=== PATIENT | female | born 1960 | race Caucasian/White ===

== ENCOUNTER 2019-10-01 06:51 | Observation (INO) | payer BC ==
[2019-10-01] MEDS ORDERED: ASPIRIN 81 MG CHEWABLE TABLETS ONE ×2 (07:35→07:37)
[2019-10-01] MEDS ORDERED: ASPIRIN 81 MG CHEWABLE TABLETS PO ONE (07:36)
[2019-10-01 07:39] VITALS: BMI 22.6
[2019-10-01] MEDS ORDERED: methylPREDNISolone NA SUCC 125 MG/2 ML VIAL IVPB ONE (07:48)
[2019-10-01] MEDS ORDERED: ONDANSETRON 4 MG/2 ML VIAL IVPUSH ONE (08:00)
[2019-10-01] MEDS ORDERED: methylPREDNISolone NA SUCC 125 MG/2 ML VIAL ONE (08:02)
[2019-10-01] MEDS ORDERED: ALBUTEROL SO4 2.5/IPRATROPIUM 0.5 INH SOL 3 ML VIAL.NEB. NEB ONE (08:02)
--- NOTE | 2019-10-01 08:05 | PDOC ---
History of Present Illness - General Chief Complaint: Chest Pain Stated Complaint: CHEST PAIN Time Seen by Provider: 10/01/19 07:34 History Source: Patient Exam Limitations: No Limitations - History of Present Illness Initial Comments: 10/01/19 07:54 58yo female with a PMH of HIV (reported VL undetectable), asthma, and recently diagnosed HTN/HLD presenting with left sided chest pain for 6 hours. Patient states she woke up at 2am with intermittent, stabbing left sided chest pain radiating to left upper back, worse with deep inspiration, not associated with exertion or relieved by rest. She states she got worked up about the pain and began wheezing and feeling chest tightness, took albuterol, which helped, but did not help with the chest pain. No n/v, abdominal pain, recent immobilization, leg pain/swelling. PMH: as above PSH: appendectomy Home Medication List Medication Instructions Recorded Confirmed Type Buspirone HCl [Buspar -] 5 mg PO BID 09/16/14 10/01/19 History Darunavir Ethanolate [Prezista] 800 mg PO DAILY 09/16/14 10/01/19 History Montelukast Na [Singulair -] 10 mg PO HS 09/16/14 10/01/19 History Potassium 1 each PO DAILY 09/16/14 10/01/19 History Raltegravir [Isentress] 400 mg PO BID 09/16/14 10/01/19 History Ritonavir [Norvir] 100 mg PO DAILY 09/16/14 10/01/19 History Lamivudine 300 mg PO DAILY 07/17/15 10/01/19 History Atorvastatin Ca [Lipitor] 20 mg PO HS 10/01/19 10/01/19 History Biotin 1,000 mcg PO DAILY 10/01/19 10/01/19 History Methocarbamol [Robaxin -] 500 mg PO QID 10/01/19 10/01/19 History Metoprolol Succinate [Toprol Xl -] 25 mg PO DAILY 10/01/19 10/01/19 History Allergies: none denies alc/tob/drugs PCP: Bruno SAUCEDO GENERAL/CONSTITUTIONAL: No fever or chills. No weakness. HEAD, EYES, EARS, NOSE AND THROAT: No change in vision. No ear pain or discharge. No sore throat. CARDIOVASCULAR: + chest pain and shortness of breath RESPIRATORY: No cough, wheezing, or hemoptysis. GASTROINTESTINAL: No nausea, vomiting, diarrhea or constipation. GENITOURINARY: No dysuria, frequency, or change in urination. MUSCULOSKELETAL: No joint or muscle swelling or pain. No neck or back pain. SKIN: No rash NEUROLOGIC: No headache, vertigo, loss of consciousness, or change in strength/sensation. ENDOCRINE: No increased thirst. No abnormal weight change HEMATOLOGIC/LYMPHATIC: No anemia, easy bleeding, or history of blood clots. ALLERGIC/IMMUNOLOGIC: No hives or skin allergy. PE GENERAL: Awake, alert, and fully oriented, in no acute distress HEAD: No signs of trauma, normocephalic, atraumatic EYES: PERRLA, EOMI, sclera anicteric, conjunctiva clear ENT: Auricles normal inspection, hearing grossly normal, nares patent, oropharynx clear without exudates. Moist mucosa NECK: Normal ROM, supple, no lymphadenopathy, JVD, or masses LUNGS: No distress, speaks full sentences, expiratory wheezing in all lung keenan Chest: tender to palpation on left, but not same pain as she feels with deep breaths Back: paraspinal cervical tenderness b/l HEART: Regular rate and rhythm, normal S1 and S2, no murmurs, rubs or gallops, peripheral pulses normal and equal bilaterally. ABDOMEN: Soft, nontender, normoactive bowel sounds. No guarding, no rebound. No masses EXTREMITIES : Normal inspection, Normal range of motion, no edema. No clubbing or cyanosis. NEUROLOGICAL: Cranial nerves II through XII grossly intact. Normal speech, n ormal gait, no focal sensorimotor deficits SKIN: Warm, Dry, normal turgor, no rashes or lesions noted Vital Signs Temp Pulse Resp BP Pulse Ox 97.5 F L 78 15 147/93 100 10/01/19 07:10 10/01/19 08:42 10/01/19 08:42 10/01/19 08:42 10/01/19 08:42 10/01/19 08:49 58yo female 58yo female with a PMH of HIV (reported VL undetectable), asthma, and recently diagnosed HTN/HLD presenting with left sided pleuritic chest pain for 6 hours. EKG NSR without ischemic changes, short ND, prolonged QT. Differential includes ACS, PE, pneumonia, as well as musculoskeletal pathology. Cannot PERC out because of age, so will pursue low risk PE r/o with D-dimer. Risk factors for ACS are HTN, HLD, and age. PE notable for wheezing, so will treat. Anticipate tele-obs admission for r/o ACS. -CXR -labs -duo nebs, steroids 10/01/19 10:05 CXR: no acute process labs: notable for negative D-dimer and negative troponin x1 Heart Score [address] Marya Arias for tele-obs admission r/o ACS Patient agrees to plan Signed out to admitting physician who accepted the patient 10/01/19 15:12 Past History - Medical History Allergies/Adverse Reactions: Allergies Allergy/AdvReac Type Severity Reaction Status Date / Time No Known Allergies Allergy Verified 09/16/14 18:42 Home Medications: Ambulatory Orders Buspirone HCl [Buspar -] 5 mg PO BID 09/16/14 Darunavir Ethanolate [Prezista] 800 mg PO DAILY 09/16/14 Montelukast Na [Singulair -] 10 mg PO HS 09/16/14 Potassium 1 each PO DAILY 09/16/14 Raltegravir [Isentress] 400 mg PO BID 09/16/14 Ritonavir [Norvir] 100 mg PO DAILY 09/16/14 Lamivudine 300 mg PO DAILY 07/17/15 Atorvastatin Ca [Lipitor] 20 mg PO HS 10/01/19 Biotin 1,000 mcg PO DAILY 10/01/19 Methocarbamol [Robaxin -] 500 mg PO QID 10/01/19 Metoprolol Succinate [Toprol Xl -] 25 mg PO DAILY 10/01/19 Anemia: No Asthma: Yes Cancer: No Cardiac Disorders: No CVA: No COPD: No CHF: No Dementia: No Diabetes: No GI Disorders: Yes (ABD. PAIN) Disorders: No HTN: Yes Hypercholesterolemia: No Liver Disease: No Seizures: No Thyroid Disease: No - Surgical History Appendectomy: Yes - Immunization History Immunization Up to Date: No - Psycho-Social/Smoking History Smoking History: Never smoked Have you smoked in the past 12 months: No - Substance Abuse Hx (Audit-C & DAST Scrn) How often the patient has a drink containing alcohol: Monthly or less Score: In Men: 4 or > Positive; In Women: 3 or > Positive: 1 Screen Result (Pos requires Nsg. Audit-10AR): Negative In the last yr the pt used illegal drug/Rx for NonMed reason: No Score: Yes response is considered Positive: 0 Screen Result (Positive result requires Nsg. DAST-10): Negative *Physical Exam - Vital Signs Last Vital Signs Temp Pulse Resp BP Pulse Ox 97.5 F L 82 15 147/94 98 10/01/19 07:10 10/01/19 07:10 10/01/19 07:10 10/01/19 07:10 10/01/19 07:10 Heart Score/ECG Review - History History: Slightly suspicious - Electrocardiogram EKG: Normal - Age Age: 45-65 - Risk Factors Risk Factors Heart Score: Yes Hx Hypercholesterolemia, Yes Hx Hypertension Based on the list above the patient has:: 1-2 risk factors - Troponin Troponin: </= normal limit (Heart Score 2, plan for tele-obs) - Score Heart Score - Total: 2 ED Treatment Course - LABORATORY CBC & Chemistry Diagram: 10/01/19 07:45 10/01/19 07:45 - Medications Given in the ED: ED Medications Discontinued Medications Generic Name Dose Route Start Last Admin Trade Name Dae PRN Reason Stop Dose Admin Aspirin 324 mg 10/01/19 07:36 10/01/19 07:39 Asa - PO 10/01/19 07:37 324 mg ONCE ONE Administration Discharge - Discharge Information Problems reviewed: Yes Clinical Impression/Diagnosis: Chest pain - Follow up/Referral - Patient Discharge Instructions - Post Discharge Activity
[2019-10-01] MEDS: ALBUTEROL SO4 2.5/IPRATROPIUM 0.5 INH SOL 3 ML VIAL.NEB. NEB SCH ×3 (08:07→08:25)
[2019-10-01 08:10] LABS: BASO % 0.6 % (0-2.0); EOS % 5.9 % (0-4.5); HEMATOCRIT 39.2 % (32.4-45.2); LYMPH % 21.5 % (8-40); MCH 32.7 pg (25.7-33.7); MCHC 33.2 g/dl (32.0-36.0); MEAN CELL VOLUME 98.6 fl (80-96); MEAN PLT VOLUME 8.7 fl (7.5-11.1); MONO % 7.4 % (3.8-10.2); NEUT % 64.6 % (42.8-82.8); PLATELET COUNT 212 K/MM3 (134-434); RBC 3.98 M/mm3 (3.60-5.2); RDW 13.4 % (11.6-15.6); WHITE BLOOD COUNT 14.6 K/mm3 (4.0-10.0)
[2019-10-01 08:30] LABS: ALBUMIN 3.9 g/dl (3.4-5.0); ALK PHOS 77 U/L (45-117); ANION GAP 9 MMOL/L (8-16); BILIRUBIN,TOTAL 0.4 mg/dL (0.2-1); BLOOD UREA NITROGEN 9.1 mg/dL (7-18); CALCIUM 8.6 mg/dL (8.5-10.1); CHLORIDE 107 mmol/L (98-107); CO2 26 mmol/L (21-32); CREATININE 0.8 mg/dL (0.55-1.3); GLUCOSE,RANDOM 91 mg/dL (74-106); POTASSIUM 3.7 mmol/L (3.5-5.1); SGOT/AST 14 U/L (15-37); SGPT/ALT 20 U/L (13-61); SODIUM 142 mmol/L (136-145)
[2019-10-01 08:33] LABS: INR 0.87 (0.83-1.09); PROTHROMBIN TIME (PATIENT) 10.3 SEC (9.7-13.0)
[2019-10-01 08:35] LABS: ACTIVATED PTT 26.7 SECONDS (25.2-36.5)
[2019-10-01 11:04] LABS: URINE APPEARANCE CLOUDY; URINE BILIRUBIN NEGATIVE (NEGATIVE); URINE COLOR YELLOW; URINE GLUCOSE (UA) NEGATIVE (NEGATIVE); URINE KETONE NEGATIVE (NEGATIVE); URINE LEUK ESTERASE NEGATIVE (NEGATIVE); URINE NITRITE NEGATIVE (NEGATIVE); URINE PROTEIN NEGATIVE (NEGATIVE); URINE UROBILINOGEN 0.2 mg/dL (0.2-1.0)
--- NOTE | 2019-10-01 11:30 | PDOC ---
Documentation entered by Ria Tavares SCRIBE, acting as scribe for Dami Peace MD. Dami Peace MD: This documentation has been prepared by the Chaitanya sanchez Ana, SCRIBE, under my direction and personally reviewed by me in its entirety. I confirm that the documentation accurately reflects all work, treatment, procedures, and medical decision making performed by me. Attending Attestation - Resident Resident Name: LaliSimone - ED Attending Attestation I have performed the following: I have examined & evaluated the patient, The case was reviewed & discussed with the resident, I agree w/resident's findings & plan, Exceptions are as noted - HPI HPI: 10/01/19 09:06 Patient is a 58 year old female with a significant past medical history of HIV, asthma, hypertension, and HLD who presents to the ED with chest pain since 2am this morning. Patient described her pain as an intermittent stabbing sensation on the left side of her chest which radiates to her upper back. Patient said the pain is not related to exertion and becomes worse with deep inspiration - nothing makes the pain better. Patient reports she began wheezing and felt chest tightness due to the pain. Patient tried using her albuterol pump for relief which did not improve the chest pain. Patient denies: nausea, vomiting, abdominal pain, F/C, dizziness, focal weakness/numbness, lower extremity edema, pain anywhere else, or any other r elated symptoms. Allergies: NKDA - Physicial Exam PE: 10/01/19 11:26 Agree with resident exam - Medical Decision Making 10/01/19 09:26 58yo F MMP including HIV, HTN, HL presents to the ED with chest pain. Vitals unremarkable Exam unremarkable DDx includes ACS vs PE vs PNA vs MSK pain Labs with negative trop and dimer Pt is low risk for PE with no known RF, thus unlikely PE HS is mod risk, pt admitted to [facility] for cardiac w/u Case discussed with Dr Huizar, pt accepted for admission Case discussed in detail with admitting physician including history, physical exam and ancillary studies. Admitting physician has assumed care for the patient, will follow all pending diagnostics and will complete the evaluation and treatment. Discharge - Discharge Information Problems reviewed: Yes Clinical Impression/Diagnosis: Chest pain - Follow up/Referral - Patient Discharge Instructions - Post Discharge Activity
[2019-10-01] MEDS ORDERED: ACETAMINOPHEN 325 MG TABLET (FP) PO PRN (13:16)
[2019-10-01] MEDS ORDERED: ALBUTEROL SO4 2.5/IPRATROPIUM 0.5 INH SOL 3 ML VIAL.NEB. NEB PRN (13:21)
--- NOTE | 2019-10-01 13:24 | HP ---
Admitting History and Physical - Primary Care Physician PCP: Bruno Lyon - Admission History of Present Illness: patient seen and examined in the emergency room chart is reviewed Case discussed with the emergency room resident In summary--- Patient presented--- as per ER notes Patient is a 58 year old female with a significant past medical history of HIV, asthma, hypertension, and HLD who presents to the ED with chest pain since 2am this morning. Patient described her pain as an intermittent stabbing sensation on the left side of her chest which radiates to her upper back. Patient said the pain is not related to exertion and becomes worse with deep inspiration - nothing makes the pain better. Patient reports she began wheezing and felt chest tightness due to the pain. Patient tried using her albuterol pump for relief which did not improve the chest pain. Patient denies: nausea, vomiting, abdominal pain, F/C, dizziness, focal weakness/numbness, lower extremity edema, pain anywhere else, or any other related symptoms. EKG--unremarkable Troponins negative On physical exam--- patient has diffuse wheezing patient given steroids in the ER Will be admitted to telemetry for atypical chest pain--- clinical picture consistent with asked my examination Time of my examination Feels better No distress Anxiety present--mild History Source: Patient Limitations to Obtaining History: No Limitations - Past Medical History Pulmonary: Yes: Asthma Infectious Disease: Yes: AIDS, HIV - Past Surgical History Past Surgical History: Yes: Appendectomy - Smoking History Smoking history: Never smoked Have you smoked in the past 12 months: No - Alcohol/Substance Use Hx Alcohol Use: Yes (SOCIAL) Home Medications - Allergies Allergies/Adverse Reactions: Allergies Allergy/AdvReac Type Severity Reaction Status Date / Time No Known Allergies Allergy Verified 09/16/14 18:42 - Home Medications Home Medications: Ambulatory Orders Buspirone HCl [Buspar -] 5 mg PO BID 09/16/14 Darunavir Ethanolate [Prezista] 800 mg PO DAILY 09/16/14 Montelukast Na [Singulair -] 10 mg PO HS 09/16/14 Potassium 1 each PO DAILY 09/16/14 Raltegravir [Isentress] 400 mg PO BID 09/16/14 Ritonavir [Norvir] 100 mg PO DAILY 09/16/14 Lamivudine 300 mg PO DAILY 07/17/15 Atorvastatin Ca [Lipitor] 20 mg PO HS 10/01/19 Biotin 1,000 mcg PO DAILY 10/01/19 Methocarbamol [Robaxin -] 500 mg PO QID 10/01/19 Metoprolol Succinate [Toprol Xl -] 25 mg PO DAILY 10/01/19 Review of Systems - Review of Systems Constitutional: reports: No Symptoms Eyes: reports: No Symptoms HENT: reports: No Symptoms Neck: reports: No Symptoms Cardiovascular: reports: Chest Pain Respiratory: reports: SOB Gastrointestinal: reports: No Symptoms Genitourinary: reports: No Symptoms Musculoskeletal: reports: Other (Left chest wall tenderness) Neurological: reports: No Symptoms Hematology/Lymphatic: reports: No Symptoms Psychiatric: reports: Anxiety Physical Examination Vital Signs: Vital Signs Temperature 97.5 F L 10/01/19 07:10 Pulse Rate 100 H 10/01/19 13:00 Respiratory Rate 24 H 10/01/19 13:00 Blood Pressure 152/83 10/01/19 13:00 O2 Sat by Pulse Oximetry (%) 97 10/01/19 13:00 Constitutional: Yes: No Distress, Anxious Eyes: Yes: Conjunctiva Clear Neck: Yes: Supple Cardiovascular: Yes: Regular Rate and Rhythm Respiratory: Yes: Wheezes (bilateral expiratory) Gastrointestinal: Yes: Soft Edema: No Neurological: Yes: Alert Labs: CBC, BMP 10/01/19 07:45 10/01/19 07:45 Imaging - Results Chest X-ray: Report Reviewed Problem List - Problems (1) Chest pain Code(s): R07.9 - CHEST PAIN, UNSPECIFIED (2) AIDS (acquired immunodeficiency syndrome), CD4 <=200 Code(s): B20 - HUMAN IMMUNODEFICIENCY VIRUS [HIV] DISEASE (3) Asthma exacerbation Code(s): J45.901 - UNSPECIFIED ASTHMA WITH (ACUTE) EXACERBATION Qualifiers: Asthma severity: moderate persistent Qualified Code(s): J45.41 - Moderate persistent asthma with (acute) exacerbation Assessment/Plan admit to telemetry Atypical chest pain--- unlikely cardiac symptoms likely related to asthma aggravation Continue steroids Nebulizer treatment Medications orders written Tylenol when necessary for pain .repeat troponins Discontinue beta iwona-- Start on amlodipine DVT prophylaxis GI prophylaxis Will follow
[2019-10-01] MEDS ORDERED: METHOCARBAMOL 500 MG TABLET ONE ×3 (14:22→21:54)
[2019-10-01] MEDS ORDERED: amLODIPine BESYLATE 5 MG TABLET (FP) ONE (14:22)
[2019-10-01] MEDS: amLODIPine BESYLATE 5 MG TABLET (FP) PO SCH (14:45)
[2019-10-01] MEDS: METHOCARBAMOL 500 MG TABLET PO SCH ×3 (14:45→22:07)
[2019-10-01] MEDS ORDERED: methylPREDNISolone NA SUCC 40 MG/1 ML VIAL ONE ×2 (15:15→21:55)
[2019-10-01] MEDS: methylPREDNISolone NA SUCC 40 MG/1 ML VIAL IVPUSH SCH ×2 (15:19→22:07)
[2019-10-01] MEDS ORDERED: ACETAMINOPHEN 325 MG TABLET (FP) ONE (17:45)
--- NOTE | 2019-10-01 17:57 | EKG ---
Test Reason : Blood Pressure : / mmHG Vent. Rate : 083 BPM Atrial Rate : 083 BPM P-R Int : 086 ms QRS Dur : 082 ms QT Int : 438 ms P-R-T Axes : 037 013 065 degrees QTc Int : 514 ms POOR DATA QUALITY, INTERPRETATION MAY BE ADVERSELY AFFECTED SINUS RHYTHM WITH SHORT UT PROLONGED QT ABNORMAL ECG WHEN COMPARED WITH ECG OF 16-SEP-2014 19:49, NO SIGNIFICANT CHANGE WAS FOUND Confirmed by MD OBRIEN MOYSES ([id number]) on 10/01/2019 5:56:48 PM Referred By: Confirmed By:HANS OBRIEN MD
[2019-10-01] MEDS ORDERED: METOCLOPRAMIDE HCL INJECTION 10 MG/2 ML VIAL IVPUSH ONE (19:39)
[2019-10-01] MEDS ORDERED: METOCLOPRAMIDE HCL INJECTION 10 MG/2 ML VIAL ONE (19:44)
[2019-10-01] MEDS ORDERED: ATORVASTATIN CA 20 MG TABLET (FP) ONE (21:54)
[2019-10-01] MEDS ORDERED: busPIRone HCL 5 MG TABLET ONE (21:55)
[2019-10-01] MEDS ORDERED: MONTELUKAST NA 10 MG TABLET ONE (21:55)
[2019-10-01] MEDS ORDERED: HEPARIN NA (PORCINE) 5,000 UNITS/ML 1ML VIAL ONE (21:55)
[2019-10-01] MEDS ORDERED: ATORVASTATIN CA 20 MG TABLET (FP) PO SCH (22:00)
[2019-10-01] MEDS ORDERED: BUDESONIDE/FORMETEROL FUMARATE 80/4.5 mcg INHALER IH SCH (22:00)
[2019-10-01] MEDS ORDERED: MONTELUKAST NA 10 MG TABLET PO SCH (22:00)
[2019-10-01] MEDS: HEPARIN NA (PORCINE) 5,000 UNITS/ML 1ML VIAL SQ SCH (22:07)
[2019-10-01] MEDS: RALTEGRAVIR POTASSIUM 400 MG TAB PO SCH (22:07)
[2019-10-01] MEDS: busPIRone HCL 5 MG TABLET PO SCH (22:07)
[2019-10-02] MEDS ORDERED: methylPREDNISolone NA SUCC 40 MG/1 ML VIAL ONE ×2 (04:09→09:45)
[2019-10-02] MEDS: methylPREDNISolone NA SUCC 40 MG/1 ML VIAL IVPUSH SCH ×2 (04:20→09:42)
[2019-10-02 06:42] VITALS: BP 142/85; PULSE 60; TEMP 97.6
[2019-10-02 08:10] LABS: BASO % 0.1 % (0-2.0); HEMATOCRIT 43.1 % (32.4-45.2); HEMOGLOBIN 14.2 GM/dL (10.7-15.3); LYMPH % 13.9 % (8-40); MCH 32.1 pg (25.7-33.7); MEAN CELL VOLUME 97.3 fl (80-96); MEAN PLT VOLUME 8.6 fl (7.5-11.1); MONO % 5.3 % (3.8-10.2); NEUT % 80.7 % (42.8-82.8); PLATELET COUNT 228 K/MM3 (134-434); RBC 4.43 M/mm3 (3.60-5.2); RDW 13.2 % (11.6-15.6); WHITE BLOOD COUNT 17.8 K/mm3 (4.0-10.0)
[2019-10-02 08:36] LABS: BILIRUBIN,TOTAL 0.6 mg/dL (0.2-1); BLOOD UREA NITROGEN 19.4 mg/dL (7-18); CALCIUM 9.4 mg/dL (8.5-10.1); CREATININE 0.9 mg/dL (0.55-1.3); POTASSIUM 4.4 mmol/L (3.5-5.1); TOT PROT 7.5 g/dl (6.4-8.2)
--- NOTE | 2019-10-02 09:03 | CON.CARD ---
Consult Consult Specialty:: Cardiology Referred by:: Lena Huizar MD Reason for Consultation:: Chest pain - History of Present Illness Chief Complaint: Chest pain History of Present Illness: Patient is a 58 year old female with a significant past medical history of HIV, asthma, hypertension, and HLD who presented to the ED with chest pain described as an intermittent stabbing sensation on the left side of her chest which ra diates to her upper back. Patient said the pain is not related to exertion and becomes worse with deep inspiration, feels improved after nebulizar therapy. Patient reports she began wheezing and felt chest tightness due to the pain. Patient tried using her albuterol pump for relief which did not improve the chest pain. Patient denies: nausea, vomiting, abdominal pain, F/C, dizziness, focal weakne ss/numbness, lower extremity edema, pain anywhere else, or any other related symptoms. - History Source History Provided By: Patient Limitations to Obtaining History: No Limitations - Past Medical History Pulmonary: Yes: Asthma Infectious Disease: Yes: AIDS, HIV - Past Surgical History Past Surgical History: Yes: Appendectomy - Alcohol/Substance Use Hx Alcohol Use: Yes (SOCIAL) - Smoking History Smoking history: Never smoked Have you smoked in the past 12 months: No Home Medications - Allergies Allergies/Adverse Reactions: Allergies Allergy/AdvReac Type Severity Reaction Status Date / Time No Known Allergies Allergy Verified 09/16/14 18:42 - Home Medications Home Medications: Ambulatory Orders Buspirone HCl [Buspar -] 5 mg PO BID 09/16/14 Darunavir Ethanolate [Prezista] 800 mg PO DAILY 09/16/14 Montelukast Na [Singulair -] 10 mg PO HS 09/16/14 Potassium 1 each PO DAILY 09/16/14 Raltegravir [Isentress] 400 mg PO BID 09/16/14 Ritonavir [Norvir] 100 mg PO DAILY 09/16/14 Lamivudine 300 mg PO DAILY 07/17/15 Atorvastatin Ca [Lipitor] 20 mg PO HS 10/01/19 Biotin 1,000 mcg PO DAILY 10/01/19 Methocarbamol [Robaxin -] 500 mg PO QID 10/01/19 Acetaminophen [Tylenol .Regular Strength -] 650 mg PO Q6H PRN tablet 10/02/19 Albuterol Sulfate Inhaler - [Ventolin Hfa Inhaler -] 1 - 2 inh PO Q4H #1 inhaler 10/02/19 Amlodipine Besylate [Norvasc -] 5 mg PO DAILY #30 tablet 10/02/19 Budesonide/Formeterol Fumarate [SYMBICORT 80/4.5mcg -] 2 puff IH BID #1 inhaler 10/02/19 Pantoprazole Sodium [Protonix -] 20 mg PO DAILY #30 tablet.ec 10/02/19 Prednisone 10 mg PO DAILY 14 Days #30 tablet 10/02/19 Review of Systems - Review of Systems Cardiovascular: reports: Chest Pain Respiratory: reports: SOB, Wheezing Vital Signs: Vital Signs Temperature 97.6 F 10/02/19 06:41 Pulse Rate 60 10/02/19 06:41 Respiratory Rate 16 10/02/19 06:41 Blood Pressure 142/85 10/02/19 06:41 O2 Sat by Pulse Oximetry (%) 98 10/02/19 06:41 Constitutional: Yes: No Distress, Calm, Thin Neck: Yes: Supple Respiratory: Yes: Regular, CTA Bilaterally Gastrointestinal: Yes: Soft, Hypoactive Bowel Sounds Cardiovascular: Yes: Regular Rate and Rhythm JVD: No Carotid Bruit: No Heart Sounds: Yes: S1, S2 Edema: No - Other Data Labs, Other Data: CBC, BMP 10/02/19 07:48 10/02/19 07:48 INR, PTT INR 0.87 (0.83-1.09) 10/01/19 07:45 Troponin, BNP 10/01/19 14:20 Troponin I < 0.02 Troponin, BNP 10/01/19 14:20 Troponin I < 0.02 NSR @ 83 prolonged QT Ejection Fraction %: LVEF > or = 40 % Imaging - Results Chest X-ray: Report Reviewed (NAD) Problem List - Problems (1) Atypical chest pain Code(s): R07.89 - OTHER CHEST PAIN (2) Hyperlipidemia Code(s): E78.5 - HYPERLIPIDEMIA, UNSPECIFIED Qualifiers: Hyperlipidemia type: pure hypercholesterolemia Qualified Code(s): E78.00 - Pure hypercholesterolemia, unspecified; E78.0 - Pure hypercholesterolemia (3) Hypertension Code(s): I10 - ESSENTIAL (PRIMARY) HYPERTENSION Qualifiers: Hypertension type: essential hypertension Qualified Code(s): I10 - Essential (primary) hypertension (4) Asthma exacerbation Code(s): J45.901 - UNSPECIFIED ASTHMA WITH (ACUTE) EXACERBATION Qualifiers: Asthma severity: moderate persistent Assessment/Plan 1. Atypical chest pain pleuritic in quality suspect mucous plugging and ATX, resolved 2. Asthma flare improved 3. HTN 4. Hyperlipidemia 5. HIV P:1. Ruled out for NV 2. Oral steroid taper with GI protection, BD, Singulair, O2 as needed 3. Agree with change Toprol XL 25 qd to amlodipine 5 qd, Lipitor 20 qhs 4. D/c planning with f/u with PMD 5. Thank you for consultative opportunity
[2019-10-02] MEDS ORDERED: PANTOPRAZOLE 40 MG TABLET ONE (09:44)
[2019-10-02] MEDS ORDERED: amLODIPine BESYLATE 5 MG TABLET (FP) ONE (09:44)
[2019-10-02] MEDS ORDERED: METHOCARBAMOL 500 MG TABLET ONE (09:44)
[2019-10-02] MEDS: busPIRone HCL 5 MG TABLET PO SCH (09:53)
[2019-10-02] MEDS: amLODIPine BESYLATE 5 MG TABLET (FP) PO SCH (09:53)
[2019-10-02] MEDS: RALTEGRAVIR POTASSIUM 400 MG TAB PO SCH (09:53)
[2019-10-02] MEDS: METHOCARBAMOL 500 MG TABLET PO SCH (09:54)
[2019-10-02] MEDS ORDERED: metoPROLOL SUCCINATE 25 MG TAB.SR.24H (FP) PO SCH (10:00)
[2019-10-02] MEDS ORDERED: PANTOPRAZOLE 20 MG TABLET PO SCH (10:00)
[2019-10-02] MEDS ORDERED: DARUNAVIR ETHANOLATE 800 MG TAB PO SCH (10:00)
[2019-10-02] MEDS ORDERED: lamiVUDine 150 MG TABLET PO SCH (10:00)
[2019-10-02] MEDS ORDERED: RITONAVIR 100 MG TABLET PO SCH (10:00)
[2019-10-02] MEDS ORDERED: PATIENT'S OWN MEDICATION (NON-FORMULARY) (Biotin [Biotin] 1,000 MCG) PO SCH (10:00)
[2019-10-02] MEDS ORDERED: POTASSIUM PO SCH (10:00)
--- NOTE | 2019-10-02 10:08 | DS ---
Physical Examination Vital Signs: Vital Signs Temperature 97.6 F 10/02/19 06:41 Pulse Rate 60 10/02/19 06:41 Respiratory Rate 16 10/02/19 06:41 Blood Pressure 142/85 10/02/19 06:41 O2 Sat by Pulse Oximetry (%) 98 10/02/19 06:41 Findings/Remarks: Feels well No complains wants to go home denies cp Denies sob Constitutional: Yes: No Distress, Calm Neck: Yes: Supple Cardiovascular: Yes: Regular Rate and Rhythm Respiratory: Yes: CTA Bilaterally, Rhonchi (few scattered) Gastrointestinal: Yes: Soft Edema: No Neurological: Yes: Alert Labs: CBC, BMP 10/02/19 07:48 10/02/19 07:48 Discharge Summary Problems reviewed: Yes Reason For Visit: CHEST PAIN Current Active Problems Chest pain (Acute) Hospital Course: Admitted for Asthma exac/ Atypical Cp - likely due to asthma treated with steroids DE ruled out Better d/w pt will d/c on po steroids f/u with her pmd this week advised meds reconcilled Prescribed as needed Condition: Improved - Instructions Disposition: HOME - Home Medications Comprehensive Discharge Medication List: Ambulatory Orders Buspirone HCl [Buspar -] 5 mg PO BID 09/16/14 Darunavir Ethanolate [Prezista] 800 mg PO DAILY 09/16/14 Montelukast Na [Singulair -] 10 mg PO HS 09/16/14 Potassium 1 each PO DAILY 09/16/14 Raltegravir [Isentress] 400 mg PO BID 09/16/14 Ritonavir [Norvir] 100 mg PO DAILY 09/16/14 Lamivudine 300 mg PO DAILY 07/17/15 Atorvastatin Ca [Lipitor] 20 mg PO HS 10/01/19 Biotin 1,000 mcg PO DAILY 10/01/19 Methocarbamol [Robaxin -] 500 mg PO QID 10/01/19 Acetaminophen [Tylenol .Regular Strength -] 650 mg PO Q6H PRN tablet 10/02/19 Amlodipine Besylate [Norvasc -] 5 mg PO DAILY #30 tablet 10/02/19 Budesonide/Formeterol Fumarate [SYMBICORT 80/4.5mcg -] 2 puff IH BID #1 inhaler 10/02/19 Pantoprazole Sodium [Protonix -] 20 mg PO DAILY #30 tablet.ec 10/02/19 Prednisone 10 mg PO DAILY 14 Days #30 tablet 10/02/19
[2019-10-02] MEDS: HEPARIN NA (PORCINE) 5,000 UNITS/ML 1ML VIAL SQ SCH (10:14)
== END 2019-10-02 13:16 | disposition home or self-care (01) ==
LOC: JER 06:51 → JERBED 09:47 → OBSVTOIN 13:16 → INTOOBSV 13:16
PROVIDERS: ADMIT Internal Medicine; ATTEND Internal Medicine
PROC: 3E0F7GC Introduction of Other Therapeutic Substance into Respiratory Tract, Via Natural or Artificial Opening (ICD-10-PCS; principal; 2019-10-01)
PROC: 3E033GC Introduction of Other Therapeutic Substance into Peripheral Vein, Percutaneous Approach (ICD-10-PCS; 2019-10-01)
DX: J45.41 Moderate persistent asthma with (acute) exacerbation (principal); R06.02 Shortness of breath; I10 Essential (primary) hypertension; Z21 Asymptomatic human immunodeficiency virus [HIV] infection status; E78.5 Hyperlipidemia, unspecified
CPT/HCPCS: 36415; 71045-TC-FY; 80053; 81003; 84443; 84484; 85025; 85379; 85610; 85730; 87086; 93005; 93010; 99285-25; G0378; J1644; U0003

== ENCOUNTER 2020-09-16 14:07 | Inpatient (IN) | payer BC ==
[2020-09-16] MEDS ORDERED: SODIUM CHLORIDE 1,701 ML IV ONE (14:46)
[2020-09-16] MEDS ORDERED: methylPREDNISolone NA SUCC 125 MG/2 ML VIAL IVPUSH ONE (14:49)
[2020-09-16] MEDS ORDERED: ALBUTEROL SO4 2.5/IPRATROPIUM 0.5 INH SOL 3 ML VIAL.NEB. NEB ONE ×3 (15:12→16:02)
[2020-09-16] MEDS ORDERED: methylPREDNISolone NA SUCC 125 MG/2 ML VIAL ONE (15:12)
[2020-09-16] MEDS ORDERED: ACETAMINOPHEN 1000 MG/100 ML VIAL (NON FORMULARY) IVPB ONE ×2 (15:12→15:16)
[2020-09-16] MEDS ORDERED: ACETAMINOPHEN INJECTION 100 ML IVPB ONE (16:02)
[2020-09-16] MEDS: ALBUTEROL SO4 2.5/IPRATROPIUM 0.5 INH SOL 3 ML VIAL.NEB. NEB SCH ×2 (16:34→17:11)
[2020-09-16 16:48] LABS: BASO % 0.6 % (0-2.0); EOS % 0.6 % (0-4.5); HEMATOCRIT 32.4 % (32.4-45.2); HEMOGLOBIN 10.8 GM/dL (10.7-15.3); LYMPH % 13.4 % (8-40); MCH 31.2 pg (25.7-33.7); MCHC 33.4 g/dl (32.0-36.0); MEAN CELL VOLUME 93.6 fl (80-96); MEAN PLT VOLUME 7.9 fl (7.5-11.1); MONO % 9.1 % (3.8-10.2); NEUT % 76.3 % (42.8-82.8); PLATELET COUNT 260 10^3/uL (134-434); RBC 3.47 M/mm3 (3.60-5.2); RDW 14.7 % (11.6-15.6); WHITE BLOOD COUNT 11.1 K/mm3 (4.0-10.0)
[2020-09-16 16:56] LABS: ALBUMIN 2.2 g/dl (3.4-5.0); BLOOD UREA NITROGEN 12.7 mg/dL (7-18); CALCIUM 7.9 mg/dL (8.5-10.1)
[2020-09-16 17:00] LABS: CREATININE 0.7 mg/dL (0.55-1.3)
[2020-09-16 17:01] LABS: TOT PROT 6.8 g/dl (6.4-8.2)
[2020-09-16] MEDS ORDERED: POTASSIUM CHLORIDE 20 MEQ PREMIX IVPB 100 ML IVPB ONE (17:07)
[2020-09-16] MEDS ORDERED: POTASSIUM CHLORIDE TABS 20 MEQ TABLET.ER (FP) PO ONE ×2 (17:11→17:12)
[2020-09-16] MEDS ORDERED: PIPERACILLIN/TAZOB 4.5 GM 4.5 GM in DEXTROSE 5%-WATER 100 ML IVPB ONE (18:34)
[2020-09-16] MEDS ORDERED: VANCOMYCIN 1 GM in D5W (PRE-DOCKED) 1,000 MG/250 ML IVPB ONE (18:34)
[2020-09-16] MEDS ORDERED: PIPERACILLIN/TAZOB 4.5 GM 4.5 GM/100 ML BAG IVPB ONE (18:50)
[2020-09-16] MEDS ORDERED: VANCOMYCIN 1 GRAM (PRE-DOCKED) 1,000 MG/250 ML BAG IVPB ONE (19:45)
[2020-09-17] MEDS ORDERED: ALBUTEROL SO4 HFA INHALER IH PRN (04:41)
[2020-09-17] MEDS ORDERED: ALBUTEROL SO4 2.5/IPRATROPIUM 0.5 INH SOL 3 ML VIAL.NEB. NEB PRN (04:44)
[2020-09-17] MEDS ORDERED: PIPERACILLIN/TAZOBACTAM 4.5 GM VIAL IVPB ONE ×3 (06:11→14:25)
[2020-09-17] MEDS ORDERED: DEXTROSE 5%-WATER 100 ML IVPB ONE ×3 (06:12→14:25)
[2020-09-17] MEDS: PIPERACILLIN/TAZOB 4.5 GM 4.5 GM in DEXTROSE 5%-WATER 100 ML IVPB SCH ×3 (06:19→14:28)
[2020-09-17] MEDS ORDERED: VANCOMYCIN 1 GRAM (PRE-DOCKED) 1,000 MG/250 ML BAG IVPB SCH ×2 (08:00→14:30)
[2020-09-17 08:34] LABS: BASO % 0.1 % (0-2.0); HEMATOCRIT 29.8 % (32.4-45.2); HEMOGLOBIN 10.1 GM/dL (10.7-15.3); LYMPH % 10.7 % (8-40); MCH 31.8 pg (25.7-33.7); MCHC 33.9 g/dl (32.0-36.0); MEAN CELL VOLUME 93.7 fl (80-96); MEAN PLT VOLUME 7.9 fl (7.5-11.1); MONO % 3.4 % (3.8-10.2); NEUT % 85.8 % (42.8-82.8); PLATELET COUNT 268 10^3/uL (134-434); RBC 3.18 M/mm3 (3.60-5.2); RDW 14.4 % (11.6-15.6); WHITE BLOOD COUNT 8.7 K/mm3 (4.0-10.0)
[2020-09-17 08:53] LABS: CALCIUM 7.7 mg/dL (8.5-10.1)
[2020-09-17 08:54] LABS: ALBUMIN 1.9 g/dl (3.4-5.0); BLOOD UREA NITROGEN 14.8 mg/dL (7-18)
[2020-09-17 08:57] LABS: CREATININE 0.6 mg/dL (0.55-1.3)
[2020-09-17 08:58] LABS: BILIRUBIN,TOTAL 0.7 mg/dL (0.2-1); TOT PROT 5.8 g/dl (6.4-8.2)
[2020-09-17] MEDS ORDERED: PT OWN MED DRAWER 7, Y5N ONE ×3 (09:26→20:53)
[2020-09-17] MEDS: PANTOPRAZOLE 20 MG TABLET PO SCH (09:27)
[2020-09-17] MEDS: BUDESONIDE/FORMETEROL FUMARATE 80/4.5 mcg INHALER IH SCH ×2 (09:27→21:37)
[2020-09-17] MEDS: DARUNAVIR ETHANOLATE 800 MG TAB PO SCH (09:28)
[2020-09-17] MEDS: RALTEGRAVIR POTASSIUM 400 MG TAB PO SCH ×2 (09:28→21:33)
[2020-09-17] MEDS: RITONAVIR 100 MG TABLET PO SCH (09:28)
[2020-09-17] MEDS: lamiVUDine 150 MG TABLET PO SCH (09:28)
[2020-09-17] MEDS ORDERED: POTASSIUM CHLORIDE TABS 20 MEQ TABLET.ER (FP) PO ONE (11:54)
[2020-09-17] MEDS ORDERED: PIPERACILLIN/TAZOBACTAM 3.375 GM VIAL IVPB ONE (18:02)
[2020-09-17] MEDS ORDERED: DEXTROSE 5%-WATER - 50 ML IVPB ONE (18:02)
[2020-09-17] MEDS: PIPERACILLIN/TAZOB 3.375 GM 3.375 GM in DEXTROSE 5%-WATER - 50 ML IVPB SCH (18:27)
[2020-09-17] MEDS: VANCOMYCIN 1 GRAM (PRE-DOCKED) 1,000 MG/250 ML BAG IVPB SCH (20:30)
[2020-09-17] MEDS: ATORVASTATIN CA 20 MG TABLET (FP) PO SCH (21:33)
[2020-09-17] MEDS: MONTELUKAST NA 10 MG TABLET PO SCH (21:33)
[2020-09-18] MEDS ORDERED: PIPERACILLIN/TAZOBACTAM 3.375 GM VIAL IVPB ONE ×3 (01:28→17:21)
[2020-09-18] MEDS ORDERED: DEXTROSE 5%-WATER - 50 ML IVPB ONE ×3 (01:29→17:21)
[2020-09-18] MEDS: PIPERACILLIN/TAZOB 3.375 GM 3.375 GM in DEXTROSE 5%-WATER - 50 ML IVPB SCH ×3 (01:31→17:39)
[2020-09-18] MEDS ORDERED: PIPERACILLIN/TAZOB 4.5 GM 4.5 GM in DEXTROSE 5%-WATER 100 ML IVPB SCH (03:00)
[2020-09-18] MEDS: ALBUTEROL SO4 2.5/IPRATROPIUM 0.5 INH SOL 3 ML VIAL.NEB. NEB PRN ×2 (03:54→09:14)
[2020-09-18] MEDS ORDERED: PT OWN MED DRAWER 7, Y5N ONE ×3 (07:19→21:19)
[2020-09-18] MEDS ORDERED: VANCOMYCIN 1 GRAM (PRE-DOCKED) 1,000 MG/250 ML BAG IVPB SCH (08:00)
[2020-09-18] MEDS: VANCOMYCIN 1 GRAM (PRE-DOCKED) 1,000 MG/250 ML BAG IVPB SCH ×2 (08:33→20:50)
[2020-09-18] MEDS: ENOXAPARIN NA (PORCINE) 40 MG/0.4 ML DISP.SYRIN SQ SCH (09:44)
[2020-09-18] MEDS: PANTOPRAZOLE 20 MG TABLET PO SCH (09:45)
[2020-09-18] MEDS: DARUNAVIR ETHANOLATE 800 MG TAB PO SCH (09:47)
[2020-09-18] MEDS: RALTEGRAVIR POTASSIUM 400 MG TAB PO SCH ×2 (09:47→21:33)
[2020-09-18] MEDS: lamiVUDine 150 MG TABLET PO SCH (09:47)
[2020-09-18] MEDS: BUDESONIDE/FORMETEROL FUMARATE 80/4.5 mcg INHALER IH SCH ×2 (09:48→21:34)
[2020-09-18] MEDS: RITONAVIR 100 MG TABLET PO SCH (09:48)
[2020-09-18] MEDS: ACETYLCYSTEINE 20% 200MG/ML 4 ML VIAL *FOR ORAL / INH USE ONLY NEB SCH ×2 (10:33→22:18)
[2020-09-18] MEDS: ALBUTEROL SO4 0.083% IH SOL 2.5 MG/3 ML VIAL.NEB. NEB SCH ×2 (10:35→22:18)
[2020-09-18] MEDS: LACTOBACILLUS ACIDOPHILUS 1 TABLET PO SCH (12:56)
[2020-09-18] MEDS: ONDANSETRON 4 MG/2 ML VIAL IVPUSH PRN (12:56)
[2020-09-18] MEDS: ATORVASTATIN CA 20 MG TABLET (FP) PO SCH (21:33)
[2020-09-18] MEDS: MONTELUKAST NA 10 MG TABLET PO SCH (21:33)
[2020-09-19] MEDS ORDERED: PIPERACILLIN/TAZOBACTAM 3.375 GM VIAL IVPB ONE ×3 (01:24→17:45)
[2020-09-19] MEDS ORDERED: DEXTROSE 5%-WATER - 50 ML IVPB ONE ×3 (01:25→17:45)
[2020-09-19] MEDS: PIPERACILLIN/TAZOB 3.375 GM 3.375 GM in DEXTROSE 5%-WATER - 50 ML IVPB SCH ×3 (01:40→18:46)
[2020-09-19] MEDS: VANCOMYCIN 1 GRAM (PRE-DOCKED) 1,000 MG/250 ML BAG IVPB SCH ×2 (08:58→20:07)
[2020-09-19] MEDS: ACETYLCYSTEINE 20% 200MG/ML 4 ML VIAL *FOR ORAL / INH USE ONLY NEB SCH ×2 (09:46→21:17)
[2020-09-19] MEDS: ALBUTEROL SO4 0.083% IH SOL 2.5 MG/3 ML VIAL.NEB. NEB SCH ×2 (09:49→21:17)
[2020-09-19] MEDS ORDERED: PT OWN MED DRAWER 7, Y5N ONE ×2 (10:43→22:09)
[2020-09-19] MEDS: lamiVUDine 150 MG TABLET PO SCH (10:55)
[2020-09-19] MEDS: LACTOBACILLUS ACIDOPHILUS 1 TABLET PO SCH (10:55)
[2020-09-19] MEDS: RITONAVIR 100 MG TABLET PO SCH (10:56)
[2020-09-19] MEDS: DARUNAVIR ETHANOLATE 800 MG TAB PO SCH (10:56)
[2020-09-19] MEDS: ENOXAPARIN NA (PORCINE) 40 MG/0.4 ML DISP.SYRIN SQ SCH (10:56)
[2020-09-19] MEDS: RALTEGRAVIR POTASSIUM 400 MG TAB PO SCH ×2 (10:56→22:58)
[2020-09-19] MEDS: PANTOPRAZOLE 20 MG TABLET PO SCH (10:57)
[2020-09-19] MEDS: BUDESONIDE/FORMETEROL FUMARATE 80/4.5 mcg INHALER IH SCH ×2 (10:57→21:15)
[2020-09-19] MEDS: MONTELUKAST NA 10 MG TABLET PO SCH (21:15)
[2020-09-19] MEDS: ATORVASTATIN CA 20 MG TABLET (FP) PO SCH (21:15)
[2020-09-20] MEDS ORDERED: DEXTROSE 5%-WATER - 50 ML IVPB ONE ×3 (01:25→17:03)
[2020-09-20] MEDS ORDERED: PIPERACILLIN/TAZOBACTAM 3.375 GM VIAL IVPB ONE ×3 (01:25→17:03)
[2020-09-20] MEDS: PIPERACILLIN/TAZOB 3.375 GM 3.375 GM in DEXTROSE 5%-WATER - 50 ML IVPB SCH ×3 (01:32→17:06)
[2020-09-20] MEDS: VANCOMYCIN 1 GRAM (PRE-DOCKED) 1,000 MG/250 ML BAG IVPB SCH ×2 (08:53→20:05)
[2020-09-20] MEDS: ENOXAPARIN NA (PORCINE) 40 MG/0.4 ML DISP.SYRIN SQ SCH (09:28)
[2020-09-20] MEDS: PANTOPRAZOLE 20 MG TABLET PO SCH (09:28)
[2020-09-20] MEDS: LACTOBACILLUS ACIDOPHILUS 1 TABLET PO SCH (09:28)
[2020-09-20 09:29] LABS: BASO % 0.6 % (0-2.0); EOS % 1.2 % (0-4.5); HEMATOCRIT 31.5 % (32.4-45.2); HEMOGLOBIN 10.5 GM/dL (10.7-15.3); LYMPH % 23.8 % (8-40); MCH 31.1 pg (25.7-33.7); MCHC 33.4 g/dl (32.0-36.0); MEAN CELL VOLUME 93.1 fl (80-96); MEAN PLT VOLUME 8.3 fl (7.5-11.1); MONO % 9.5 % (3.8-10.2); NEUT % 64.9 % (42.8-82.8); PLATELET COUNT 307 10^3/uL (134-434); RBC 3.38 M/mm3 (3.60-5.2); RDW 15.1 % (11.6-15.6); WHITE BLOOD COUNT 6.8 K/mm3 (4.0-10.0)
[2020-09-20] MEDS: DARUNAVIR ETHANOLATE 800 MG TAB PO SCH (09:29)
[2020-09-20] MEDS: RITONAVIR 100 MG TABLET PO SCH (09:29)
[2020-09-20] MEDS: RALTEGRAVIR POTASSIUM 400 MG TAB PO SCH ×2 (09:29→21:58)
[2020-09-20] MEDS: lamiVUDine 150 MG TABLET PO SCH (09:29)
[2020-09-20] MEDS: BUDESONIDE/FORMETEROL FUMARATE 80/4.5 mcg INHALER IH SCH ×2 (09:33→21:56)
[2020-09-20 10:04] LABS: CALCIUM 7.9 mg/dL (8.5-10.1)
[2020-09-20 10:05] LABS: ALBUMIN 2.1 g/dl (3.4-5.0); BLOOD UREA NITROGEN 8.8 mg/dL (7-18)
[2020-09-20 10:08] LABS: CREATININE 0.9 mg/dL (0.55-1.3)
[2020-09-20 10:09] LABS: BILIRUBIN,TOTAL 0.5 mg/dL (0.2-1); TOT PROT 5.8 g/dl (6.4-8.2)
[2020-09-20] MEDS: ACETYLCYSTEINE 20% 200MG/ML 4 ML VIAL *FOR ORAL / INH USE ONLY NEB SCH ×2 (10:11→22:01)
[2020-09-20] MEDS: ALBUTEROL SO4 0.083% IH SOL 2.5 MG/3 ML VIAL.NEB. NEB SCH ×2 (10:12→22:02)
[2020-09-20] MEDS: POTASSIUM CHLORIDE ORAL LIQUID 20 MEQ/15 ML PO SCH ×2 (13:18→21:56)
[2020-09-20] MEDS: MONTELUKAST NA 10 MG TABLET PO SCH (21:56)
[2020-09-20] MEDS: ATORVASTATIN CA 20 MG TABLET (FP) PO SCH (21:56)
[2020-09-20] MEDS ORDERED: PT OWN MED DRAWER 7, Y5N ONE (21:58)
[2020-09-21] MEDS ORDERED: DEXTROSE 5%-WATER - 50 ML IVPB ONE ×3 (01:13→17:13)
[2020-09-21] MEDS ORDERED: PIPERACILLIN/TAZOBACTAM 3.375 GM VIAL IVPB ONE ×3 (01:13→17:13)
[2020-09-21] MEDS: PIPERACILLIN/TAZOB 3.375 GM 3.375 GM in DEXTROSE 5%-WATER - 50 ML IVPB SCH ×3 (01:22→17:46)
[2020-09-21] MEDS: VANCOMYCIN 1 GRAM (PRE-DOCKED) 1,000 MG/250 ML BAG IVPB SCH ×2 (08:17→20:24)
[2020-09-21] MEDS ORDERED: PT OWN MED DRAWER 7, Y5N ONE ×2 (09:57→22:06)
[2020-09-21] MEDS: PANTOPRAZOLE 20 MG TABLET PO SCH (10:02)
[2020-09-21] MEDS: ENOXAPARIN NA (PORCINE) 40 MG/0.4 ML DISP.SYRIN SQ SCH (10:02)
[2020-09-21] MEDS: LACTOBACILLUS ACIDOPHILUS 1 TABLET PO SCH (10:02)
[2020-09-21] MEDS: DARUNAVIR ETHANOLATE 800 MG TAB PO SCH (10:03)
[2020-09-21] MEDS: RALTEGRAVIR POTASSIUM 400 MG TAB PO SCH ×2 (10:03→22:08)
[2020-09-21] MEDS: lamiVUDine 150 MG TABLET PO SCH (10:04)
[2020-09-21] MEDS: RITONAVIR 100 MG TABLET PO SCH (10:04)
[2020-09-21] MEDS: BUDESONIDE/FORMETEROL FUMARATE 80/4.5 mcg INHALER IH SCH ×2 (10:20→22:08)
[2020-09-21] MEDS: ALBUTEROL SO4 0.083% IH SOL 2.5 MG/3 ML VIAL.NEB. NEB SCH ×2 (10:39→21:37)
[2020-09-21] MEDS: ACETYLCYSTEINE 20% 200MG/ML 4 ML VIAL *FOR ORAL / INH USE ONLY NEB SCH ×2 (10:39→21:37)
[2020-09-21] MEDS: ACETAMINOPHEN 325 MG TABLET (FP) PO PRN (22:07)
[2020-09-21] MEDS: MONTELUKAST NA 10 MG TABLET PO SCH (22:07)
[2020-09-21] MEDS: ATORVASTATIN CA 20 MG TABLET (FP) PO SCH (22:07)
[2020-09-22] MEDS ORDERED: DEXTROSE 5%-WATER - 50 ML IVPB ONE ×3 (01:09→18:29)
[2020-09-22] MEDS ORDERED: PIPERACILLIN/TAZOBACTAM 3.375 GM VIAL IVPB ONE ×3 (01:09→18:29)
[2020-09-22] MEDS: PIPERACILLIN/TAZOB 3.375 GM 3.375 GM in DEXTROSE 5%-WATER - 50 ML IVPB SCH ×3 (01:13→18:40)
[2020-09-22 08:14] LABS: BASO % 0.6 % (0-2.0); EOS % 1.9 % (0-4.5); HEMATOCRIT 30.5 % (32.4-45.2); HEMOGLOBIN 10.3 GM/dL (10.7-15.3); LYMPH % 27.4 % (8-40); MCH 31.7 pg (25.7-33.7); MCHC 33.8 g/dl (32.0-36.0); MEAN CELL VOLUME 93.6 fl (80-96); MONO % 15.6 % (3.8-10.2); NEUT % 54.5 % (42.8-82.8); PLATELET COUNT 344 10^3/uL (134-434); RBC 3.26 M/mm3 (3.60-5.2); RDW 15.9 % (11.6-15.6); WHITE BLOOD COUNT 6.7 K/mm3 (4.0-10.0)
[2020-09-22 08:26] LABS: CALCIUM 7.9 mg/dL (8.5-10.1)
[2020-09-22 08:27] LABS: BLOOD UREA NITROGEN 8.8 mg/dL (7-18)
[2020-09-22 08:30] LABS: CREATININE 1.4 mg/dL (0.55-1.3)
[2020-09-22 08:32] LABS: BILIRUBIN,TOTAL 0.5 mg/dL (0.2-1); TOT PROT 5.5 g/dl (6.4-8.2)
[2020-09-22] MEDS: VANCOMYCIN 1 GRAM (PRE-DOCKED) 1,000 MG/250 ML BAG IVPB SCH ×2 (08:51→20:06)
[2020-09-22] MEDS ORDERED: PT OWN MED DRAWER 7, Y5N ONE ×2 (09:50→22:41)
[2020-09-22] MEDS: ACETYLCYSTEINE 20% 200MG/ML 4 ML VIAL *FOR ORAL / INH USE ONLY NEB SCH ×2 (10:00→21:34)
[2020-09-22] MEDS: ALBUTEROL SO4 0.083% IH SOL 2.5 MG/3 ML VIAL.NEB. NEB SCH ×2 (10:00→21:34)
[2020-09-22] MEDS: LACTOBACILLUS ACIDOPHILUS 1 TABLET PO SCH (10:13)
[2020-09-22] MEDS: ENOXAPARIN NA (PORCINE) 40 MG/0.4 ML DISP.SYRIN SQ SCH (10:13)
[2020-09-22] MEDS: PANTOPRAZOLE 20 MG TABLET PO SCH (10:13)
[2020-09-22] MEDS: DARUNAVIR ETHANOLATE 800 MG TAB PO SCH (10:14)
[2020-09-22] MEDS: lamiVUDine 150 MG TABLET PO SCH (10:14)
[2020-09-22] MEDS: RALTEGRAVIR POTASSIUM 400 MG TAB PO SCH ×2 (10:14→22:43)
[2020-09-22] MEDS: BUDESONIDE/FORMETEROL FUMARATE 80/4.5 mcg INHALER IH SCH ×2 (10:15→22:44)
[2020-09-22] MEDS: RITONAVIR 100 MG TABLET PO SCH (10:15)
[2020-09-22 10:54] LABS: ANISOCYTOSIS 0; HELMET CELLS 0; HOWELL-JOLLY BODIES 0; MACROCYTOSIS 0; OVALOCYTE 0; PLATELET ESTIMATE NORMAL; ROULEAU 0; SICKELED CELLS 0; TARGET CELLS 0; TEAR DROP CELLS 0; TOXIC GRANULATION 0
[2020-09-22] MEDS: ATORVASTATIN CA 20 MG TABLET (FP) PO SCH (22:43)
[2020-09-22] MEDS: MONTELUKAST NA 10 MG TABLET PO SCH (22:43)
[2020-09-22] MEDS: BACITRACIN 15 GM TUBE TOPICAL OINTMENT TP SCH (22:44)
[2020-09-23] MEDS ORDERED: PIPERACILLIN/TAZOBACTAM 3.375 GM VIAL IVPB ONE ×2 (01:18→10:55)
[2020-09-23] MEDS ORDERED: DEXTROSE 5%-WATER - 50 ML IVPB ONE ×2 (01:18→10:55)
[2020-09-23] MEDS: PIPERACILLIN/TAZOB 3.375 GM 3.375 GM in DEXTROSE 5%-WATER - 50 ML IVPB SCH ×2 (01:28→11:13)
[2020-09-23] MEDS: VANCOMYCIN 1 GRAM (PRE-DOCKED) 1,000 MG/250 ML BAG IVPB SCH ×2 (08:49→20:55)
[2020-09-23] MEDS ORDERED: ALBUTEROL SO4 2.5/IPRATROPIUM 0.5 INH SOL 3 ML VIAL.NEB. NEB PRN (10:29)
[2020-09-23] MEDS ORDERED: PT OWN MED DRAWER 7, Y5N ONE ×2 (10:56→20:54)
[2020-09-23] MEDS: ACETYLCYSTEINE 20% 200MG/ML 4 ML VIAL *FOR ORAL / INH USE ONLY NEB SCH ×2 (11:00→21:30)
[2020-09-23] MEDS: PANTOPRAZOLE 20 MG TABLET PO SCH (11:11)
[2020-09-23] MEDS: ENOXAPARIN NA (PORCINE) 40 MG/0.4 ML DISP.SYRIN SQ SCH (11:11)
[2020-09-23] MEDS: LACTOBACILLUS ACIDOPHILUS 1 TABLET PO SCH (11:11)
[2020-09-23] MEDS: DARUNAVIR ETHANOLATE 800 MG TAB PO SCH (11:12)
[2020-09-23] MEDS: RALTEGRAVIR POTASSIUM 400 MG TAB PO SCH ×2 (11:12→21:21)
[2020-09-23] MEDS: lamiVUDine 150 MG TABLET PO SCH (11:12)
[2020-09-23] MEDS: RITONAVIR 100 MG TABLET PO SCH (11:12)
[2020-09-23] MEDS: BUDESONIDE/FORMETEROL FUMARATE 80/4.5 mcg INHALER IH SCH ×2 (11:13→21:20)
[2020-09-23] MEDS: BACITRACIN 15 GM TUBE TOPICAL OINTMENT TP SCH ×2 (11:13→21:20)
[2020-09-23 14:51] VITALS: BMI 23.0
[2020-09-23] MEDS: ONDANSETRON 4 MG/2 ML VIAL IVPUSH PRN (18:22)
[2020-09-23] MEDS: MONTELUKAST NA 10 MG TABLET PO SCH (21:20)
[2020-09-23] MEDS: ATORVASTATIN CA 20 MG TABLET (FP) PO SCH (21:20)
[2020-09-23] MEDS: ALBUTEROL SO4 0.083% IH SOL 2.5 MG/3 ML VIAL.NEB. NEB SCH (21:30)
[2020-09-24] MEDS ORDERED: PT OWN MED DRAWER 7, Y5N ONE ×3 (07:36→21:03)
[2020-09-24] MEDS: ACETYLCYSTEINE 20% 200MG/ML 4 ML VIAL *FOR ORAL / INH USE ONLY NEB SCH ×2 (08:00→20:52)
[2020-09-24] MEDS: ALBUTEROL SO4 0.083% IH SOL 2.5 MG/3 ML VIAL.NEB. NEB SCH (08:00)
[2020-09-24] MEDS: VANCOMYCIN 1 GRAM (PRE-DOCKED) 1,000 MG/250 ML BAG IVPB SCH (09:11)
[2020-09-24] MEDS: MULTIVITAMINS (DAILY MVI) TABLET (FP) PO SCH (09:11)
[2020-09-24] MEDS: ENOXAPARIN NA (PORCINE) 40 MG/0.4 ML DISP.SYRIN SQ SCH (09:12)
[2020-09-24] MEDS: lamiVUDine 150 MG TABLET PO SCH (09:12)
[2020-09-24] MEDS: RALTEGRAVIR POTASSIUM 400 MG TAB PO SCH ×2 (09:12→21:15)
[2020-09-24] MEDS: PANTOPRAZOLE 20 MG TABLET PO SCH (09:12)
[2020-09-24] MEDS: LACTOBACILLUS ACIDOPHILUS 1 TABLET PO SCH (09:12)
[2020-09-24] MEDS: BACITRACIN 15 GM TUBE TOPICAL OINTMENT TP SCH ×2 (09:13→21:16)
[2020-09-24] MEDS: RITONAVIR 100 MG TABLET PO SCH (09:13)
[2020-09-24] MEDS: DARUNAVIR ETHANOLATE 800 MG TAB PO SCH (09:13)
[2020-09-24] MEDS: BUDESONIDE/FORMETEROL FUMARATE 80/4.5 mcg INHALER IH SCH ×2 (09:13→21:16)
[2020-09-24 13:36] LABS: HEMATOCRIT 28.3 % (32.4-45.2); HEMOGLOBIN 9.4 GM/dL (10.7-15.3); MCHC 33.4 g/dl (32.0-36.0); MEAN CELL VOLUME 92.8 fl (80-96); MEAN PLT VOLUME 7.4 fl (7.5-11.1); PLATELET COUNT 352 10^3/uL (134-434); RBC 3.05 M/mm3 (3.60-5.2); RDW 15.4 % (11.6-15.6)
[2020-09-24 14:00] LABS: CALCIUM 7.6 mg/dL (8.5-10.1)
[2020-09-24 14:02] LABS: BLOOD UREA NITROGEN 13.4 mg/dL (7-18)
[2020-09-24 14:04] LABS: CREATININE 3.2 mg/dL (0.55-1.3)
[2020-09-24] MEDS ORDERED: POTASSIUM CHLORIDE TABS 20 MEQ TABLET.ER (FP) PO ONE (14:45)
[2020-09-24] MEDS ORDERED: DEXTROSE 5%-WATER - 50 ML IVPB ONE (16:25)
[2020-09-24] MEDS ORDERED: PIPERACILLIN/TAZOBACTAM 2.25 GM VIAL IVPB ONE (16:25)
[2020-09-24] MEDS: SODIUM CHLORIDE 0.45% 1,000 ML IV SCH (16:39)
[2020-09-24] MEDS: PIPERACILLIN/TAZOB 2.25 GM 2.25 GM in DEXTROSE 5%-WATER - 50 ML IVPB SCH (16:40)
[2020-09-24] MEDS ORDERED: ALBUTEROL SO4 0.083% IH SOL 2.5 MG/3 ML VIAL.NEB. NEB PRN (16:57)
[2020-09-24] MEDS: ATORVASTATIN CA 20 MG TABLET (FP) PO SCH (21:15)
[2020-09-24] MEDS: MONTELUKAST NA 10 MG TABLET PO SCH (21:15)
[2020-09-24] MEDS ORDERED: PIPERACILLIN/TAZOB 2.25 GM 2.25 GM in DEXTROSE 5%-WATER - 50 ML IVPB SCH (22:00)
[2020-09-25] MEDS: SODIUM CHLORIDE 0.45% 1,000 ML IV SCH ×2 (03:27→15:55)
[2020-09-25] MEDS ORDERED: PIPERACILLIN/TAZOBACTAM 2.25 GM VIAL IVPB ONE ×2 (03:37→20:07)
[2020-09-25] MEDS ORDERED: DEXTROSE 5%-WATER - 50 ML IVPB ONE ×2 (03:37→20:07)
[2020-09-25 04:17] LABS: CALCIUM 7.2 mg/dL (8.5-10.1)
[2020-09-25 04:18] LABS: BLOOD UREA NITROGEN 18.7 mg/dL (7-18)
[2020-09-25 04:21] LABS: CREATININE 4.1 mg/dL (0.55-1.3)
[2020-09-25] MEDS: PIPERACILLIN/TAZOB 2.25 GM 2.25 GM in DEXTROSE 5%-WATER - 50 ML IVPB SCH ×3 (04:23→20:11)
[2020-09-25] MEDS: ACETYLCYSTEINE 20% 200MG/ML 4 ML VIAL *FOR ORAL / INH USE ONLY NEB SCH ×2 (08:00→20:10)
[2020-09-25] MEDS ORDERED: PT OWN MED DRAWER 7, Y5N ONE ×4 (09:22→21:17)
[2020-09-25] MEDS: ONDANSETRON 4 MG/2 ML VIAL IVPUSH PRN (09:36)
[2020-09-25] MEDS: ACETAMINOPHEN 1000 MG/100 ML VIAL (NON FORMULARY) IVPB PRN (10:49)
[2020-09-25] MEDS: RALTEGRAVIR POTASSIUM 400 MG TAB PO SCH ×2 (10:53→21:27)
[2020-09-25] MEDS: MULTIVITAMINS (DAILY MVI) TABLET (FP) PO SCH (10:53)
[2020-09-25] MEDS: LACTOBACILLUS ACIDOPHILUS 1 TABLET PO SCH (10:53)
[2020-09-25] MEDS: lamiVUDine 150 MG TABLET PO SCH (10:53)
[2020-09-25] MEDS: PANTOPRAZOLE 20 MG TABLET PO SCH (10:53)
[2020-09-25] MEDS: BACITRACIN 15 GM TUBE TOPICAL OINTMENT TP SCH ×2 (10:53→21:27)
[2020-09-25] MEDS: DARUNAVIR ETHANOLATE 800 MG TAB PO SCH (10:53)
[2020-09-25] MEDS: ENOXAPARIN NA (PORCINE) 40 MG/0.4 ML DISP.SYRIN SQ SCH (10:54)
[2020-09-25] MEDS: RITONAVIR 100 MG TABLET PO SCH (10:54)
[2020-09-25] MEDS: BUDESONIDE/FORMETEROL FUMARATE 80/4.5 mcg INHALER IH SCH ×2 (10:54→21:25)
[2020-09-25 12:09] LABS: EPI CELLS 5 /uL (0-25.1); HYALINE CASTS 1 /uL (0-3.1); URINE APPEARANCE CLEAR; URINE BACTERIA 2 /uL (0-1359); URINE BILIRUBIN NEGATIVE (NEGATIVE); URINE COLOR YELLOW; URINE GLUCOSE (UA) NEGATIVE (NEGATIVE); URINE KETONE NEGATIVE (NEGATIVE); URINE LEUK ESTERASE NEGATIVE (NEGATIVE); URINE NITRITE NEGATIVE (NEGATIVE); URINE PROTEIN 1+ (NEGATIVE); URINE RBC 11 /uL (0-23.9); URINE UROBILINOGEN 0.2 mg/dL (0.2-1.0); URINE WBC 11 /uL (0-25.8)
[2020-09-25 13:07] LABS: SARS-CoV-2 NAA Not Detected (Not Detected)
[2020-09-25] MEDS: ALBUTEROL SO4 0.083% IH SOL 2.5 MG/3 ML VIAL.NEB. NEB PRN (20:10)
[2020-09-25] MEDS: ACETAMINOPHEN 325 MG TABLET (FP) PO PRN (21:26)
[2020-09-25] MEDS: ATORVASTATIN CA 20 MG TABLET (FP) PO SCH (21:27)
[2020-09-25] MEDS: MONTELUKAST NA 10 MG TABLET PO SCH (21:27)
[2020-09-26] MEDS ORDERED: PIPERACILLIN/TAZOBACTAM 2.25 GM VIAL IVPB ONE ×2 (08:25→21:12)
[2020-09-26] MEDS ORDERED: DEXTROSE 5%-WATER - 50 ML IVPB ONE ×2 (08:25→21:12)
[2020-09-26] MEDS: ACETAMINOPHEN 1000 MG/100 ML VIAL (NON FORMULARY) IVPB PRN (08:39)
[2020-09-26] MEDS: PIPERACILLIN/TAZOB 2.25 GM 2.25 GM in DEXTROSE 5%-WATER - 50 ML IVPB SCH ×2 (08:40→21:17)
[2020-09-26] MEDS: ALBUTEROL SO4 0.083% IH SOL 2.5 MG/3 ML VIAL.NEB. NEB PRN ×2 (09:00→20:20)
[2020-09-26] MEDS: ACETYLCYSTEINE 20% 200MG/ML 4 ML VIAL *FOR ORAL / INH USE ONLY NEB SCH ×2 (09:00→20:20)
[2020-09-26 10:27] LABS: HEMATOCRIT 25.8 % (32.4-45.2); HEMOGLOBIN 8.7 GM/dL (10.7-15.3); MCH 30.8 pg (25.7-33.7); MCHC 33.6 g/dl (32.0-36.0); MEAN CELL VOLUME 91.6 fl (80-96); MEAN PLT VOLUME 7.2 fl (7.5-11.1); PLATELET COUNT 296 10^3/uL (134-434); RBC 2.81 M/mm3 (3.60-5.2); RDW 15.9 % (11.6-15.6); WHITE BLOOD COUNT 9.2 K/mm3 (4.0-10.0)
[2020-09-26] MEDS ORDERED: PT OWN MED DRAWER 7, Y5N ONE ×2 (10:51→21:12)
[2020-09-26 10:53] LABS: ALBUMIN 1.7 g/dl (3.4-5.0); BLOOD UREA NITROGEN 23.4 mg/dL (7-18); CALCIUM 7.2 mg/dL (8.5-10.1)
[2020-09-26] MEDS: MULTIVITAMINS (DAILY MVI) TABLET (FP) PO SCH (10:53)
[2020-09-26] MEDS: LACTOBACILLUS ACIDOPHILUS 1 TABLET PO SCH (10:53)
[2020-09-26] MEDS: DARUNAVIR ETHANOLATE 800 MG TAB PO SCH (10:53)
[2020-09-26] MEDS: PANTOPRAZOLE 20 MG TABLET PO SCH (10:53)
[2020-09-26] MEDS: RITONAVIR 100 MG TABLET PO SCH (10:54)
[2020-09-26] MEDS: lamiVUDine 150 MG TABLET PO SCH (10:54)
[2020-09-26] MEDS: ENOXAPARIN NA (PORCINE) 40 MG/0.4 ML DISP.SYRIN SQ SCH (10:54)
[2020-09-26] MEDS: RALTEGRAVIR POTASSIUM 400 MG TAB PO SCH ×2 (10:54→21:18)
[2020-09-26] MEDS: BACITRACIN 15 GM TUBE TOPICAL OINTMENT TP SCH ×2 (10:54→21:17)
[2020-09-26] MEDS: ONDANSETRON 4 MG/2 ML VIAL IVPUSH PRN (10:55)
[2020-09-26] MEDS: BUDESONIDE/FORMETEROL FUMARATE 80/4.5 mcg INHALER IH SCH ×2 (10:55→21:16)
[2020-09-26 10:57] LABS: CREATININE 6.1 mg/dL (0.55-1.3)
[2020-09-26 10:58] LABS: BILIRUBIN,TOTAL 0.4 mg/dL (0.2-1)
[2020-09-26] MEDS: ATORVASTATIN CA 20 MG TABLET (FP) PO SCH (21:14)
[2020-09-26] MEDS: ACETAMINOPHEN 325 MG TABLET (FP) PO PRN (21:14)
[2020-09-26] MEDS: MONTELUKAST NA 10 MG TABLET PO SCH (21:14)
[2020-09-27] MEDS: SODIUM CHLORIDE 0.45% 1,000 ML IV SCH (07:41)
[2020-09-27] MEDS: ACETYLCYSTEINE 20% 200MG/ML 4 ML VIAL *FOR ORAL / INH USE ONLY NEB SCH ×2 (08:34→20:15)
[2020-09-27] MEDS ORDERED: PIPERACILLIN/TAZOBACTAM 2.25 GM VIAL IVPB ONE ×2 (08:59→20:11)
[2020-09-27] MEDS ORDERED: DEXTROSE 5%-WATER - 50 ML IVPB ONE ×2 (08:59→20:11)
[2020-09-27] MEDS ORDERED: PT OWN MED DRAWER 7, Y5N ONE ×3 (09:08→22:10)
[2020-09-27 09:32] LABS: BASO % 0.7 % (0-2.0); EOS % 0.5 % (0-4.5); HEMATOCRIT 27.6 % (32.4-45.2); HEMOGLOBIN 9.1 GM/dL (10.7-15.3); MCH 30.9 pg (25.7-33.7); MCHC 33.1 g/dl (32.0-36.0); MEAN CELL VOLUME 93.4 fl (80-96); MEAN PLT VOLUME 7.7 fl (7.5-11.1); MONO % 9.3 % (3.8-10.2); NEUT % 70.5 % (42.8-82.8); PLATELET COUNT 290 10^3/uL (134-434); RBC 2.96 M/mm3 (3.60-5.2); RDW 15.9 % (11.6-15.6); WHITE BLOOD COUNT 9.2 K/mm3 (4.0-10.0)
[2020-09-27] MEDS: MULTIVITAMINS (DAILY MVI) TABLET (FP) PO SCH (09:43)
[2020-09-27] MEDS: LACTOBACILLUS ACIDOPHILUS 1 TABLET PO SCH (09:43)
[2020-09-27] MEDS: PIPERACILLIN/TAZOB 2.25 GM 2.25 GM in DEXTROSE 5%-WATER - 50 ML IVPB SCH ×2 (09:43→20:21)
[2020-09-27] MEDS: PANTOPRAZOLE 20 MG TABLET PO SCH (09:43)
[2020-09-27] MEDS: RALTEGRAVIR POTASSIUM 400 MG TAB PO SCH ×2 (09:44→22:22)
[2020-09-27] MEDS: BACITRACIN 15 GM TUBE TOPICAL OINTMENT TP SCH ×2 (09:44→22:22)
[2020-09-27] MEDS: ENOXAPARIN NA (PORCINE) 40 MG/0.4 ML DISP.SYRIN SQ SCH (09:44)
[2020-09-27] MEDS: RITONAVIR 100 MG TABLET PO SCH (09:45)
[2020-09-27] MEDS: DARUNAVIR ETHANOLATE 800 MG TAB PO SCH (09:45)
[2020-09-27] MEDS: BUDESONIDE/FORMETEROL FUMARATE 80/4.5 mcg INHALER IH SCH ×2 (09:45→22:23)
[2020-09-27] MEDS: ACETAMINOPHEN 325 MG TABLET (FP) PO PRN ×2 (10:06→20:21)
[2020-09-27] MEDS: lamiVUDine 150 MG TABLET PO SCH (10:50)
[2020-09-27 11:24] LABS: CALCIUM 7.1 mg/dL (8.5-10.1)
[2020-09-27 11:25] LABS: ALBUMIN 1.6 g/dl (3.4-5.0); BLOOD UREA NITROGEN 24.1 mg/dL (7-18)
[2020-09-27 11:28] LABS: CREATININE 6.9 mg/dL (0.55-1.3)
[2020-09-27 11:30] LABS: BILIRUBIN,TOTAL 0.2 mg/dL (0.2-1); TOT PROT 5.2 g/dl (6.4-8.2)
[2020-09-27 14:02] LABS: ANISOCYTOSIS 1+; MACROCYTOSIS 0; OVALOCYTE 1+; PLATELET ESTIMATE NORMAL; TEAR DROP CELLS 1+
[2020-09-27] MEDS: ALBUTEROL SO4 0.083% IH SOL 2.5 MG/3 ML VIAL.NEB. NEB PRN (20:15)
[2020-09-27] MEDS: ATORVASTATIN CA 20 MG TABLET (FP) PO SCH (22:22)
[2020-09-27] MEDS: MONTELUKAST NA 10 MG TABLET PO SCH (22:22)
[2020-09-28] MEDS: ACETAMINOPHEN 325 MG TABLET (FP) PO PRN ×3 (02:28→23:24)
[2020-09-28] MEDS: ALBUTEROL SO4 0.083% IH SOL 2.5 MG/3 ML VIAL.NEB. NEB PRN (09:01)
[2020-09-28] MEDS: ACETYLCYSTEINE 20% 200MG/ML 4 ML VIAL *FOR ORAL / INH USE ONLY NEB SCH ×2 (09:01→20:50)
[2020-09-28] MEDS ORDERED: DEXTROSE 5%-WATER - 50 ML IVPB ONE ×2 (10:44→21:40)
[2020-09-28] MEDS ORDERED: PIPERACILLIN/TAZOBACTAM 2.25 GM VIAL IVPB ONE ×2 (10:44→21:40)
[2020-09-28] MEDS ORDERED: PT OWN MED DRAWER 7, Y5N ONE ×2 (10:45→11:57)
[2020-09-28] MEDS: SODIUM CHLORIDE 0.45% 1,000 ML IV SCH ×3 (10:48→17:45)
[2020-09-28] MEDS: MULTIVITAMINS (DAILY MVI) TABLET (FP) PO SCH (10:49)
[2020-09-28] MEDS: PIPERACILLIN/TAZOB 2.25 GM 2.25 GM in DEXTROSE 5%-WATER - 50 ML IVPB SCH ×2 (10:49→21:49)
[2020-09-28] MEDS: LACTOBACILLUS ACIDOPHILUS 1 TABLET PO SCH (10:49)
[2020-09-28] MEDS: PANTOPRAZOLE 20 MG TABLET PO SCH (10:49)
[2020-09-28] MEDS: ENOXAPARIN NA (PORCINE) 40 MG/0.4 ML DISP.SYRIN SQ SCH (10:49)
[2020-09-28] MEDS: BUDESONIDE/FORMETEROL FUMARATE 80/4.5 mcg INHALER IH SCH ×2 (10:50→21:50)
[2020-09-28] MEDS: lamiVUDine 150 MG TABLET PO SCH (10:50)
[2020-09-28] MEDS: BACITRACIN 15 GM TUBE TOPICAL OINTMENT TP SCH ×2 (10:50→21:51)
[2020-09-28] MEDS: RITONAVIR 100 MG TABLET PO SCH (10:50)
[2020-09-28] MEDS: DARUNAVIR ETHANOLATE 800 MG TAB PO SCH (10:50)
[2020-09-28] MEDS: RALTEGRAVIR POTASSIUM 400 MG TAB PO SCH ×2 (10:50→21:51)
[2020-09-28 11:53] LABS: ALBUMIN 1.7 g/dl (3.4-5.0); BLOOD UREA NITROGEN 25.4 mg/dL (7-18); CALCIUM 7.4 mg/dL (8.5-10.1)
[2020-09-28 11:58] LABS: BILIRUBIN,TOTAL 0.3 mg/dL (0.2-1)
[2020-09-28] MEDS: ATORVASTATIN CA 20 MG TABLET (FP) PO SCH (21:50)
[2020-09-28] MEDS: MONTELUKAST NA 10 MG TABLET PO SCH (21:50)
[2020-09-29] MEDS: PIPERACILLIN/TAZOB 2.25 GM 2.25 GM in DEXTROSE 5%-WATER - 50 ML IVPB SCH (08:30)
[2020-09-29] MEDS: ACETYLCYSTEINE 20% 200MG/ML 4 ML VIAL *FOR ORAL / INH USE ONLY NEB SCH ×2 (08:38→19:41)
[2020-09-29] MEDS ORDERED: DEXTROSE 5%-WATER - 50 ML IVPB ONE (10:58)
[2020-09-29] MEDS ORDERED: PIPERACILLIN/TAZOBACTAM 2.25 GM VIAL IVPB ONE (10:58)
[2020-09-29] MEDS: PANTOPRAZOLE 20 MG TABLET PO SCH (11:23)
[2020-09-29] MEDS: LACTOBACILLUS ACIDOPHILUS 1 TABLET PO SCH (11:23)
[2020-09-29] MEDS: MULTIVITAMINS (DAILY MVI) TABLET (FP) PO SCH (11:23)
[2020-09-29] MEDS: BACITRACIN 15 GM TUBE TOPICAL OINTMENT TP SCH ×2 (11:24→21:52)
[2020-09-29] MEDS: lamiVUDine 150 MG TABLET PO SCH (11:30)
[2020-09-29] MEDS: RALTEGRAVIR POTASSIUM 400 MG TAB PO SCH ×2 (11:31→21:52)
[2020-09-29] MEDS: RITONAVIR 100 MG TABLET PO SCH (11:31)
[2020-09-29] MEDS: DARUNAVIR ETHANOLATE 800 MG TAB PO SCH (11:32)
[2020-09-29] MEDS: BUDESONIDE/FORMETEROL FUMARATE 80/4.5 mcg INHALER IH SCH ×2 (11:33→21:54)
[2020-09-29] MEDS ORDERED: LIDOCAINE VISCOUS 2% ORAL/TOP 15 ML UNIT-DOSE CUP MM PRN (11:57)
[2020-09-29] MEDS: methylPREDNISolone NA SUCC 40 MG/1 ML VIAL IVPUSH SCH ×2 (13:16→18:21)
[2020-09-29] MEDS: SODIUM CHLORIDE 0.45% 1,000 ML IV SCH (18:04)
[2020-09-29] MEDS ORDERED: PT OWN MED DRAWER 7, Y5N ONE (21:49)
[2020-09-29] MEDS: MONTELUKAST NA 10 MG TABLET PO SCH (21:52)
[2020-09-29] MEDS: ATORVASTATIN CA 20 MG TABLET (FP) PO SCH (21:52)
[2020-09-30] MEDS: SODIUM CHLORIDE 0.45% 1,000 ML IV SCH ×2 (00:39→15:22)
[2020-09-30] MEDS: methylPREDNISolone NA SUCC 40 MG/1 ML VIAL IVPUSH SCH ×3 (02:46→18:12)
[2020-09-30] MEDS ORDERED: PT OWN MED DRAWER 7, Y5N ONE ×3 (06:49→22:00)
[2020-09-30] MEDS: ALBUTEROL SO4 0.083% IH SOL 2.5 MG/3 ML VIAL.NEB. NEB PRN ×2 (07:48→21:19)
[2020-09-30] MEDS: ACETYLCYSTEINE 20% 200MG/ML 4 ML VIAL *FOR ORAL / INH USE ONLY NEB SCH ×2 (07:48→20:00)
[2020-09-30 09:01] LABS: BASO % 0.3 % (0-2.0); HEMOGLOBIN 9.7 GM/dL (10.7-15.3); LYMPH % 25.8 % (8-40); MCH 31.1 pg (25.7-33.7); MCHC 33.5 g/dl (32.0-36.0); MEAN CELL VOLUME 92.8 fl (80-96); MEAN PLT VOLUME 7.7 fl (7.5-11.1); NEUT % 70.9 % (42.8-82.8); PLATELET COUNT 243 10^3/uL (134-434); RBC 3.12 M/mm3 (3.60-5.2); RDW 16.2 % (11.6-15.6); WHITE BLOOD COUNT 4.6 K/mm3 (4.0-10.0)
[2020-09-30] MEDS: PANTOPRAZOLE 20 MG TABLET PO SCH (10:35)
[2020-09-30] MEDS: LACTOBACILLUS ACIDOPHILUS 1 TABLET PO SCH (10:35)
[2020-09-30] MEDS: MULTIVITAMINS (DAILY MVI) TABLET (FP) PO SCH (10:35)
[2020-09-30] MEDS: lamiVUDine 150 MG TABLET PO SCH (10:36)
[2020-09-30] MEDS: DARUNAVIR ETHANOLATE 800 MG TAB PO SCH (10:36)
[2020-09-30] MEDS: RALTEGRAVIR POTASSIUM 400 MG TAB PO SCH ×2 (10:36→22:02)
[2020-09-30] MEDS: BACITRACIN 15 GM TUBE TOPICAL OINTMENT TP SCH ×2 (10:36→22:02)
[2020-09-30] MEDS: ENOXAPARIN NA (PORCINE) 30 MG/0.3 ML DISP.SYRIN SQ SCH (10:37)
[2020-09-30] MEDS: RITONAVIR 100 MG TABLET PO SCH (10:37)
[2020-09-30] MEDS: BUDESONIDE/FORMETEROL FUMARATE 80/4.5 mcg INHALER IH SCH ×2 (10:38→22:02)
[2020-09-30 11:02] LABS: ALBUMIN 1.9 g/dl (3.4-5.0); BLOOD UREA NITROGEN 28.7 mg/dL (7-18); CALCIUM 7.7 mg/dL (8.5-10.1)
[2020-09-30 11:05] LABS: CREATININE 6.4 mg/dL (0.55-1.3)
[2020-09-30 11:07] LABS: BILIRUBIN,TOTAL 0.4 mg/dL (0.2-1); TOT PROT 5.5 g/dl (6.4-8.2)
[2020-09-30] MEDS: ENOXAPARIN NA (PORCINE) 40 MG/0.4 ML DISP.SYRIN SQ SCH (12:27)
[2020-09-30] MEDS ORDERED: SODIUM BICARBONATE 650 MG TABLET PO ONE (14:27)
[2020-09-30] MEDS ORDERED: ACETAMINOPHEN 1000 MG/100 ML VIAL (NON FORMULARY) IVPB ONE (17:44)
[2020-09-30] MEDS: MONTELUKAST NA 10 MG TABLET PO SCH (22:02)
[2020-09-30] MEDS: ATORVASTATIN CA 20 MG TABLET (FP) PO SCH (22:02)
[2020-10-01] MEDS: SODIUM CHLORIDE 0.45% 1,000 ML IV SCH ×2 (01:28→21:06)
[2020-10-01] MEDS: methylPREDNISolone NA SUCC 40 MG/1 ML VIAL IVPUSH SCH ×2 (01:42→09:51)
[2020-10-01] MEDS: ACETYLCYSTEINE 20% 200MG/ML 4 ML VIAL *FOR ORAL / INH USE ONLY NEB SCH ×2 (07:24→20:35)
[2020-10-01] MEDS: ALBUTEROL SO4 0.083% IH SOL 2.5 MG/3 ML VIAL.NEB. NEB PRN ×3 (07:24→20:34)
[2020-10-01] MEDS ORDERED: PT OWN MED DRAWER 7, Y5N ONE ×2 (09:03→21:01)
[2020-10-01] MEDS: MULTIVITAMINS (DAILY MVI) TABLET (FP) PO SCH (09:07)
[2020-10-01] MEDS: ENOXAPARIN NA (PORCINE) 30 MG/0.3 ML DISP.SYRIN SQ SCH (09:07)
[2020-10-01] MEDS: PANTOPRAZOLE 20 MG TABLET PO SCH (09:07)
[2020-10-01] MEDS: LACTOBACILLUS ACIDOPHILUS 1 TABLET PO SCH (09:07)
[2020-10-01] MEDS: lamiVUDine 150 MG TABLET PO SCH (09:08)
[2020-10-01] MEDS: BACITRACIN 15 GM TUBE TOPICAL OINTMENT TP SCH ×2 (09:08→21:07)
[2020-10-01] MEDS: RALTEGRAVIR POTASSIUM 400 MG TAB PO SCH ×2 (09:08→21:07)
[2020-10-01] MEDS: DARUNAVIR ETHANOLATE 800 MG TAB PO SCH (09:08)
[2020-10-01] MEDS: RITONAVIR 100 MG TABLET PO SCH (09:09)
[2020-10-01] MEDS: BUDESONIDE/FORMETEROL FUMARATE 80/4.5 mcg INHALER IH SCH ×2 (09:09→21:07)
[2020-10-01 12:11] LABS: ANTIGLOMERULAR BASEMENT MEN.AB 3 units (0-20)
[2020-10-01 16:11] LABS: ATYPICAL pANCA <1:20 titer (Neg:<1:20); C-ANCA <1:20 titer (Neg:<1:20)
[2020-10-01 16:53] LABS: CALCIUM 7.5 mg/dL (8.5-10.1)
[2020-10-01 16:54] LABS: BLOOD UREA NITROGEN 34.6 mg/dL (7-18)
[2020-10-01 16:57] LABS: CREATININE 5.2 mg/dL (0.55-1.3)
[2020-10-01] MEDS: MONTELUKAST NA 10 MG TABLET PO SCH (21:06)
[2020-10-01] MEDS: ATORVASTATIN CA 20 MG TABLET (FP) PO SCH (21:06)
[2020-10-01] MEDS ORDERED: POTASSIUM CHLORIDE TABS 20 MEQ TABLET.ER (FP) PO ONE (21:26)
[2020-10-02] MEDS: SODIUM CHLORIDE 0.45% 1,000 ML IV SCH ×3 (06:52→22:27)
[2020-10-02] MEDS: ACETYLCYSTEINE 20% 200MG/ML 4 ML VIAL *FOR ORAL / INH USE ONLY NEB SCH ×3 (07:34→19:20)
[2020-10-02] MEDS: ALBUTEROL SO4 0.083% IH SOL 2.5 MG/3 ML VIAL.NEB. NEB PRN ×3 (07:34→19:21)
[2020-10-02] MEDS ORDERED: PT OWN MED DRAWER 7, Y5N ONE ×3 (09:16→21:02)
[2020-10-02 09:20] LABS: CALCIUM 7.8 mg/dL (8.5-10.1)
[2020-10-02 09:21] LABS: ALBUMIN 2.3 g/dl (3.4-5.0); BLOOD UREA NITROGEN 31.9 mg/dL (7-18)
[2020-10-02 09:24] LABS: CREATININE 4.8 mg/dL (0.55-1.3)
[2020-10-02 09:26] LABS: BILIRUBIN,TOTAL 0.3 mg/dL (0.2-1); TOT PROT 5.7 g/dl (6.4-8.2)
[2020-10-02] MEDS: DARUNAVIR ETHANOLATE 800 MG TAB PO SCH (09:31)
[2020-10-02] MEDS: RALTEGRAVIR POTASSIUM 400 MG TAB PO SCH ×2 (09:32→21:50)
[2020-10-02] MEDS: lamiVUDine 150 MG TABLET PO SCH (09:32)
[2020-10-02] MEDS: ENOXAPARIN NA (PORCINE) 30 MG/0.3 ML DISP.SYRIN SQ SCH (09:33)
[2020-10-02] MEDS: methylPREDNISolone NA SUCC 40 MG/1 ML VIAL IVPUSH SCH (09:34)
[2020-10-02] MEDS: PANTOPRAZOLE 20 MG TABLET PO SCH (09:34)
[2020-10-02] MEDS: LACTOBACILLUS ACIDOPHILUS 1 TABLET PO SCH (09:34)
[2020-10-02] MEDS: BACITRACIN 15 GM TUBE TOPICAL OINTMENT TP SCH ×2 (09:34→21:50)
[2020-10-02] MEDS: MULTIVITAMINS (DAILY MVI) TABLET (FP) PO SCH (09:34)
[2020-10-02] MEDS: RITONAVIR 100 MG TABLET PO SCH (09:35)
[2020-10-02] MEDS: BUDESONIDE/FORMETEROL FUMARATE 80/4.5 mcg INHALER IH SCH ×2 (09:36→21:50)
[2020-10-02] MEDS: SODIUM BICARBONATE 650 MG TABLET PO SCH ×2 (13:31→21:50)
[2020-10-02] MEDS: MONTELUKAST NA 10 MG TABLET PO SCH (21:50)
[2020-10-03] MEDS: ALBUTEROL SO4 0.083% IH SOL 2.5 MG/3 ML VIAL.NEB. NEB PRN ×2 (07:20→18:31)
[2020-10-03] MEDS: ACETYLCYSTEINE 20% 200MG/ML 4 ML VIAL *FOR ORAL / INH USE ONLY NEB SCH ×2 (07:20→21:07)
[2020-10-03] MEDS: MULTIVITAMINS (DAILY MVI) TABLET (FP) PO SCH (10:01)
[2020-10-03] MEDS: LACTOBACILLUS ACIDOPHILUS 1 TABLET PO SCH (10:01)
[2020-10-03] MEDS: SODIUM BICARBONATE 650 MG TABLET PO SCH (10:01)
[2020-10-03] MEDS: methylPREDNISolone NA SUCC 40 MG/1 ML VIAL IVPUSH SCH (10:01)
[2020-10-03] MEDS: DARUNAVIR ETHANOLATE 800 MG TAB PO SCH (10:01)
[2020-10-03] MEDS: PANTOPRAZOLE 20 MG TABLET PO SCH (10:02)
[2020-10-03] MEDS: RALTEGRAVIR POTASSIUM 400 MG TAB PO SCH ×2 (10:02→21:07)
[2020-10-03] MEDS: lamiVUDine 150 MG TABLET PO SCH (10:02)
[2020-10-03] MEDS: RITONAVIR 100 MG TABLET PO SCH (10:03)
[2020-10-03] MEDS: BUDESONIDE/FORMETEROL FUMARATE 80/4.5 mcg INHALER IH SCH ×2 (10:04→21:08)
[2020-10-03] MEDS: BACITRACIN 15 GM TUBE TOPICAL OINTMENT TP SCH ×2 (10:05→21:06)
[2020-10-03] MEDS: ENOXAPARIN NA (PORCINE) 30 MG/0.3 ML DISP.SYRIN SQ SCH (10:07)
[2020-10-03 10:22] LABS: ALBUMIN 2.2 g/dl (3.4-5.0); BLOOD UREA NITROGEN 34.9 mg/dL (7-18)
[2020-10-03 10:25] LABS: CREATININE 4.3 mg/dL (0.55-1.3)
[2020-10-03 10:26] LABS: BILIRUBIN,TOTAL 0.4 mg/dL (0.2-1)
[2020-10-03 10:27] LABS: TOT PROT 5.5 g/dl (6.4-8.2)
[2020-10-03] MEDS: SODIUM CHLORIDE 0.45% 1,000 ML IV SCH (17:00)
[2020-10-03 19:10] LABS: EPI CELLS 7 /uL (0-25.1); HYALINE CASTS 0 /uL (0-3.1); PH,URINE 5.5 (5.0-8.0); URINE APPEARANCE CLEAR; URINE BACTERIA 18 /uL (0-1359); URINE BILIRUBIN NEGATIVE (NEGATIVE); URINE COLOR YELLOW; URINE GLUCOSE (UA) NEGATIVE (NEGATIVE); URINE KETONE NEGATIVE (NEGATIVE); URINE LEUK ESTERASE NEGATIVE (NEGATIVE); URINE NITRITE NEGATIVE (NEGATIVE); URINE PROTEIN NEGATIVE (NEGATIVE); URINE RBC 17 /uL (0-23.9); URINE UROBILINOGEN 0.2 mg/dL (0.2-1.0); URINE WBC 26 /uL (0-25.8)
[2020-10-03] MEDS ORDERED: PT OWN MED DRAWER 7, Y5N ONE (20:56)
[2020-10-03] MEDS: MONTELUKAST NA 10 MG TABLET PO SCH (21:07)
[2020-10-04] MEDS: ACETYLCYSTEINE 20% 200MG/ML 4 ML VIAL *FOR ORAL / INH USE ONLY NEB SCH ×2 (08:15→20:58)
[2020-10-04 09:58] LABS: ALBUMIN 2.4 g/dl (3.4-5.0); BLOOD UREA NITROGEN 43.3 mg/dL (7-18)
[2020-10-04 10:00] LABS: BILIRUBIN,TOTAL 0.3 mg/dL (0.2-1); CALCIUM 8.3 mg/dL (8.5-10.1); TOT PROT 5.6 g/dl (6.4-8.2)
[2020-10-04] MEDS ORDERED: predniSONE 10 MG TABLET (UD) PO SCH (10:00)
[2020-10-04 10:01] LABS: CREATININE 3.9 mg/dL (0.55-1.3)
[2020-10-04] MEDS: ALBUTEROL SO4 0.083% IH SOL 2.5 MG/3 ML VIAL.NEB. NEB PRN ×2 (11:04→21:18)
[2020-10-04] MEDS ORDERED: PT OWN MED DRAWER 7, Y5N ONE ×2 (11:08→20:58)
[2020-10-04] MEDS: ENOXAPARIN NA (PORCINE) 30 MG/0.3 ML DISP.SYRIN SQ SCH (11:10)
[2020-10-04] MEDS: PANTOPRAZOLE 20 MG TABLET PO SCH (11:11)
[2020-10-04] MEDS: LACTOBACILLUS ACIDOPHILUS 1 TABLET PO SCH (11:12)
[2020-10-04] MEDS: MULTIVITAMINS (DAILY MVI) TABLET (FP) PO SCH (11:12)
[2020-10-04] MEDS: RALTEGRAVIR POTASSIUM 400 MG TAB PO SCH ×2 (11:12→21:11)
[2020-10-04] MEDS: DARUNAVIR ETHANOLATE 800 MG TAB PO SCH (11:13)
[2020-10-04] MEDS: lamiVUDine 150 MG TABLET PO SCH (11:14)
[2020-10-04] MEDS: BUDESONIDE/FORMETEROL FUMARATE 80/4.5 mcg INHALER IH SCH ×2 (11:16→21:11)
[2020-10-04] MEDS: BACITRACIN 15 GM TUBE TOPICAL OINTMENT TP SCH ×2 (11:17→21:11)
[2020-10-04] MEDS: RITONAVIR 100 MG TABLET PO SCH (11:17)
[2020-10-04] MEDS: SODIUM CHLORIDE 0.45% 1,000 ML IV SCH (16:19)
[2020-10-04] MEDS: MONTELUKAST NA 10 MG TABLET PO SCH (21:11)
[2020-10-05] MEDS: SODIUM CHLORIDE 0.45% 1,000 ML IV SCH ×2 (06:27→18:53)
[2020-10-05] MEDS: ACETYLCYSTEINE 20% 200MG/ML 4 ML VIAL *FOR ORAL / INH USE ONLY NEB SCH ×2 (08:09→19:50)
[2020-10-05] MEDS: ALBUTEROL SO4 0.083% IH SOL 2.5 MG/3 ML VIAL.NEB. NEB PRN (08:09)
[2020-10-05] MEDS: RALTEGRAVIR POTASSIUM 400 MG TAB PO SCH ×2 (10:45→21:06)
[2020-10-05] MEDS: PANTOPRAZOLE 20 MG TABLET PO SCH (10:45)
[2020-10-05] MEDS: LACTOBACILLUS ACIDOPHILUS 1 TABLET PO SCH (10:45)
[2020-10-05] MEDS: BACITRACIN 15 GM TUBE TOPICAL OINTMENT TP SCH ×2 (10:45→21:06)
[2020-10-05] MEDS: ENOXAPARIN NA (PORCINE) 30 MG/0.3 ML DISP.SYRIN SQ SCH (10:45)
[2020-10-05] MEDS: MULTIVITAMINS (DAILY MVI) TABLET (FP) PO SCH (10:45)
[2020-10-05] MEDS: BUDESONIDE/FORMETEROL FUMARATE 80/4.5 mcg INHALER IH SCH ×2 (10:46→21:06)
[2020-10-05] MEDS: lamiVUDine 150 MG TABLET PO SCH (10:46)
[2020-10-05] MEDS: RITONAVIR 100 MG TABLET PO SCH (10:46)
[2020-10-05] MEDS: DARUNAVIR ETHANOLATE 800 MG TAB PO SCH (10:46)
[2020-10-05] MEDS ORDERED: methylPREDNISolone NA SUCC 40 MG/1 ML VIAL IVPUSH SCH (11:45)
[2020-10-05] MEDS ORDERED: ALBUTEROL SO4 0.083% IH SOL 2.5 MG/3 ML VIAL.NEB. NEB SCH (11:45)
[2020-10-05] MEDS: methylPREDNISolone NA SUCC 40 MG/1 ML VIAL IVPUSH SCH ×2 (12:41→18:54)
[2020-10-05] MEDS: ALBUTEROL SO4 0.083% IH SOL 2.5 MG/3 ML VIAL.NEB. NEB SCH ×2 (15:25→19:50)
[2020-10-05] MEDS ORDERED: PT OWN MED DRAWER 7, Y5N ONE (21:04)
[2020-10-05] MEDS: MONTELUKAST NA 10 MG TABLET PO SCH (21:06)
[2020-10-06] MEDS: ALBUTEROL SO4 0.083% IH SOL 2.5 MG/3 ML VIAL.NEB. NEB SCH ×7 (00:28→23:17)
[2020-10-06] MEDS: methylPREDNISolone NA SUCC 40 MG/1 ML VIAL IVPUSH SCH ×3 (01:08→17:48)
[2020-10-06] MEDS: SODIUM CHLORIDE 0.45% 1,000 ML IV SCH ×2 (03:40→17:48)
[2020-10-06] MEDS: ACETYLCYSTEINE 20% 200MG/ML 4 ML VIAL *FOR ORAL / INH USE ONLY NEB SCH ×2 (07:38→20:02)
[2020-10-06] MEDS: LACTOBACILLUS ACIDOPHILUS 1 TABLET PO SCH (10:58)
[2020-10-06] MEDS: MULTIVITAMINS (DAILY MVI) TABLET (FP) PO SCH (10:58)
[2020-10-06] MEDS: PANTOPRAZOLE 20 MG TABLET PO SCH (10:58)
[2020-10-06] MEDS: BACITRACIN 15 GM TUBE TOPICAL OINTMENT TP SCH ×2 (10:59→21:08)
[2020-10-06] MEDS: lamiVUDine 150 MG TABLET PO SCH (11:00)
[2020-10-06] MEDS: ENOXAPARIN NA (PORCINE) 30 MG/0.3 ML DISP.SYRIN SQ SCH (11:00)
[2020-10-06] MEDS: RALTEGRAVIR POTASSIUM 400 MG TAB PO SCH ×2 (11:00→21:08)
[2020-10-06] MEDS: RITONAVIR 100 MG TABLET PO SCH (11:00)
[2020-10-06] MEDS: DARUNAVIR ETHANOLATE 800 MG TAB PO SCH (11:00)
[2020-10-06] MEDS: BUDESONIDE/FORMETEROL FUMARATE 80/4.5 mcg INHALER IH SCH ×2 (11:01→21:08)
[2020-10-06 11:04] LABS: HEMATOCRIT 24.8 % (32.4-45.2); HEMOGLOBIN 8.2 GM/dL (10.7-15.3); MCHC 33.2 g/dl (32.0-36.0); MEAN CELL VOLUME 93.3 fl (80-96); MEAN PLT VOLUME 8.1 fl (7.5-11.1); PLATELET COUNT 286 10^3/uL (134-434); RBC 2.66 M/mm3 (3.60-5.2); RDW 17.1 % (11.6-15.6)
[2020-10-06 11:25] LABS: ALBUMIN 2.4 g/dl (3.4-5.0); BLOOD UREA NITROGEN 48.2 mg/dL (7-18); CALCIUM 7.8 mg/dL (8.5-10.1)
[2020-10-06 11:29] LABS: CREATININE 3.2 mg/dL (0.55-1.3)
[2020-10-06 11:30] LABS: BILIRUBIN,TOTAL 0.4 mg/dL (0.2-1); TOT PROT 5.4 g/dl (6.4-8.2)
[2020-10-06 12:12] LABS: ANISOCYTOSIS 2+; MACROCYTOSIS 1+; PLATELET ESTIMATE NORMAL
[2020-10-06] MEDS ORDERED: PT OWN MED DRAWER 7, Y5N ONE (20:58)
[2020-10-06] MEDS: MONTELUKAST NA 10 MG TABLET PO SCH (21:08)
[2020-10-07] MEDS: SODIUM CHLORIDE 0.45% 1,000 ML IV SCH ×2 (00:40→15:00)
[2020-10-07] MEDS: methylPREDNISolone NA SUCC 40 MG/1 ML VIAL IVPUSH SCH ×2 (01:40→10:08)
[2020-10-07] MEDS: ALBUTEROL SO4 0.083% IH SOL 2.5 MG/3 ML VIAL.NEB. NEB SCH ×5 (04:00→21:00)
[2020-10-07] MEDS: ACETYLCYSTEINE 20% 200MG/ML 4 ML VIAL *FOR ORAL / INH USE ONLY NEB SCH ×2 (07:40→21:06)
[2020-10-07] MEDS ORDERED: PT OWN MED DRAWER 7, Y5N ONE (09:49)
[2020-10-07] MEDS: MULTIVITAMINS (DAILY MVI) TABLET (FP) PO SCH (10:06)
[2020-10-07] MEDS: LACTOBACILLUS ACIDOPHILUS 1 TABLET PO SCH (10:06)
[2020-10-07] MEDS: PANTOPRAZOLE 20 MG TABLET PO SCH (10:06)
[2020-10-07] MEDS: RITONAVIR 100 MG TABLET PO SCH (10:06)
[2020-10-07] MEDS: RALTEGRAVIR POTASSIUM 400 MG TAB PO SCH ×2 (10:07→22:28)
[2020-10-07] MEDS: DARUNAVIR ETHANOLATE 800 MG TAB PO SCH (10:07)
[2020-10-07] MEDS: lamiVUDine 150 MG TABLET PO SCH (10:07)
[2020-10-07] MEDS: BUDESONIDE/FORMETEROL FUMARATE 80/4.5 mcg INHALER IH SCH ×2 (10:08→22:28)
[2020-10-07] MEDS: BACITRACIN 15 GM TUBE TOPICAL OINTMENT TP SCH ×2 (10:08→22:28)
[2020-10-07 16:08] LABS: ATYPICAL pANCA <1:20 titer (Neg:<1:20); C-ANCA <1:20 titer (Neg:<1:20)
[2020-10-07] MEDS: MONTELUKAST NA 10 MG TABLET PO SCH (22:28)
[2020-10-08] MEDS: ALBUTEROL SO4 0.083% IH SOL 2.5 MG/3 ML VIAL.NEB. NEB SCH ×5 (04:00→16:32)
[2020-10-08] MEDS: ACETYLCYSTEINE 20% 200MG/ML 4 ML VIAL *FOR ORAL / INH USE ONLY NEB SCH (08:50)
[2020-10-08] MEDS ORDERED: predniSONE 20 MG TABLET (UD) PO SCH (10:00)
[2020-10-08] MEDS ORDERED: PT OWN MED DRAWER 7, Y5N ONE (10:34)
[2020-10-08] MEDS: PANTOPRAZOLE 20 MG TABLET PO SCH (10:36)
[2020-10-08] MEDS: MULTIVITAMINS (DAILY MVI) TABLET (FP) PO SCH (10:36)
[2020-10-08] MEDS: LACTOBACILLUS ACIDOPHILUS 1 TABLET PO SCH (10:36)
[2020-10-08] MEDS: RALTEGRAVIR POTASSIUM 400 MG TAB PO SCH (10:37)
[2020-10-08] MEDS: lamiVUDine 150 MG TABLET PO SCH (10:38)
[2020-10-08] MEDS: RITONAVIR 100 MG TABLET PO SCH (10:38)
[2020-10-08] MEDS: DARUNAVIR ETHANOLATE 800 MG TAB PO SCH (10:38)
[2020-10-08] MEDS: BACITRACIN 15 GM TUBE TOPICAL OINTMENT TP SCH (10:38)
[2020-10-08] MEDS: BUDESONIDE/FORMETEROL FUMARATE 80/4.5 mcg INHALER IH SCH (10:41)
[2020-10-08 15:39] VITALS: BP 134/72; PULSE 89; TEMP 98.8
[2020-10-08 16:43] LABS: ALBUMIN 2.3 g/dl (3.4-5.0); BLOOD UREA NITROGEN 50.5 mg/dL (7-18); CALCIUM 7.5 mg/dL (8.5-10.1)
[2020-10-08 16:46] LABS: CREATININE 2.7 mg/dL (0.55-1.3)
[2020-10-08 16:48] LABS: BILIRUBIN,TOTAL 0.4 mg/dL (0.2-1)
== END 2020-10-08 18:43 | disposition home or self-care (01) | DRG 194 ==
LOC: JER 14:07 → JERBED 19:39 → J6S 09-17 03:58
PROVIDERS: ADMIT Internal Medicine; ATTEND Internal Medicine
DX: J18.9 Pneumonia, unspecified organism (principal); N17.9 Acute kidney failure, unspecified; E87.2 Acidosis; J45.21 Mild intermittent asthma with (acute) exacerbation; R19.7 Diarrhea, unspecified; Z21 Asymptomatic human immunodeficiency virus [HIV] infection status; I10 Essential (primary) hypertension; E78.5 Hyperlipidemia, unspecified; N14.1 Nephropathy induced by other drugs, medicaments and biological substances; T36.8X5A Adverse effect of other systemic antibiotics, initial encounter; D72.829 Elevated white blood cell count, unspecified; E87.6 Hypokalemia
CPT/HCPCS: 36415; 71045-TC-FY; 71046-TC-FY; 71275-TC; 72131-TC; 74181-TC; 76705-TC; 76775-TC; 76856-TC; 80048; 80053; 81003; 82550; 82962; 82977; 83516; 83520; 83605; 83735; 84155; 84165; 84484; 85025; 85027; 85651; 86038; 86140; 86160; 86225; 86256; 86704; 86705; 86706; 86707; 86708; 86709; 86803; 87040; 87045; 87046; 87070; 87086; 87177; 87186; 87205; 87209; 87324; 87340; 87350; 87449; 87522; 87804; 87899; 93005; 93010; 94640; 94761; 97116-GP; 97161-GP; 99285-25; C9803; G0480; J0131; Q9967; U0003; U0005

== ENCOUNTER 2021-05-12 16:16 | Emergency (ER) | payer BC ==
[2021-05-12 16:34] VITALS: BP 163/85; PULSE 111; TEMP 97.9; BMI 23.2
[2021-05-12] MEDS ORDERED: ACETAMINOPHEN 325 MG TABLET (FP) PO ONE (17:37)
[2021-05-12] MEDS ORDERED: diazePAM 5 MG TABLET PO ONE (17:37)
[2021-05-12] MEDS ORDERED: LIDOCAINE 5% TOPICAL PATCH TP ONE (17:39)
[2021-05-12] MEDS ORDERED: LIDOCAINE 5% TOPICAL PATCH ONE (17:52)
[2021-05-12] MEDS ORDERED: diazePAM 5 MG TABLET ONE (17:52)
[2021-05-12 18:41] LABS: BASO % 0.2 % (0-2.0); HEMATOCRIT 36.8 % (32.4-45.2); HEMOGLOBIN 12.2 GM/dL (10.7-15.3); LYMPH % 11.1 % (8-40); MCH 32.5 pg (25.7-33.7); MCHC 33.1 g/dl (32.0-36.0); MEAN CELL VOLUME 98.2 fl (80-96); MEAN PLT VOLUME 7.8 fl (7.5-11.1); MONO % 3.7 % (3.8-10.2); PLATELET COUNT 293 10^3/uL (134-434); RBC 3.75 M/mm3 (3.60-5.2); RDW 15.1 % (11.6-15.6); WHITE BLOOD COUNT 11.3 K/mm3 (4.0-10.0)
[2021-05-12 18:54] LABS: ACTIVATED PTT 28.4 SECONDS (25.2-36.5); INR 0.97 (0.83-1.09); PROTHROMBIN TIME (PATIENT) 11.1 SEC (9.7-13.0)
[2021-05-12 19:11] LABS: CALCIUM 9.3 mg/dL (8.5-10.1)
[2021-05-12 19:12] LABS: ALBUMIN 3.8 g/dl (3.4-5.0); BLOOD UREA NITROGEN 17.9 mg/dL (7-18); MAGNESIUM 2.3 mg/dL (1.8-2.4)
[2021-05-12 19:15] LABS: CREATININE 1.1 mg/dL (0.55-1.3)
[2021-05-12 19:17] LABS: BILIRUBIN,TOTAL 0.3 mg/dL (0.2-1)
[2021-05-13] MEDS ORDERED: LIDOCAINE PATCH REMOVAL MC SCH (06:00)
[2021-05-13 13:09] LABS: SARS-CoV-2 NAA Not Detected (Not Detected)
== END 2021-05-12 19:53 | disposition left against medical advice (07) ==
LOC: JER 16:16
DX: R07.9 Chest pain, unspecified (principal)
CPT/HCPCS: 36415; 71046-TC-FY; 80053; 83735; 84484; 85025; 85379; 85610; 85730; 93005; 93010; 99285-25; C9803-CS; U0003; U0005

== ENCOUNTER 2021-07-28 07:12 | Emergency (ER) | payer BC ==
[2021-07-28] MEDS ORDERED: ALBUTEROL SO4 2.5/IPRATROPIUM 0.5 INH SOL 3 ML VIAL.NEB. NEB ONE (07:16)
[2021-07-28] MEDS ORDERED: methylPREDNISolone NA SUCC 125 MG/2 ML VIAL IVPB ONE (07:20)
[2021-07-28] MEDS ORDERED: MAGNESIUM SULF 50% (8.12 MEQ/2 ML-1 GM VIAL) IVPB ONE (07:20)
[2021-07-28 07:21] VITALS: TEMP 97.9; BMI 23.8
[2021-07-28] MEDS ORDERED: methylPREDNISolone NA SUCC 125 MG/2 ML VIAL ONE (07:22)
[2021-07-28] MEDS ORDERED: MAGNESIUM SULFATE IN WATER 2 GM/50 ML IVPB IVPB ONE (07:23)
[2021-07-28 08:11] LABS: BASO % 0.2 % (0-2.0); EOS % 0.5 % (0-4.5); HEMOGLOBIN 11.6 GM/dL (10.7-15.3); LYMPH % 24.2 % (8-40); MCH 31.4 pg (25.7-33.7); MCHC 32.3 g/dl (32.0-36.0); MEAN CELL VOLUME 97.1 fl (80-96); MEAN PLT VOLUME 7.7 fl (7.5-11.1); MONO % 5.8 % (3.8-10.2); NEUT % 69.3 % (42.8-82.8); PLATELET COUNT 310 10^3/uL (134-434); RDW 15.2 % (11.6-15.6)
[2021-07-28 08:29] LABS: ALBUMIN 3.3 g/dl (3.4-5.0); BLOOD UREA NITROGEN 22.2 mg/dL (7-18); MAGNESIUM 4.7 mg/dL (1.8-2.4)
[2021-07-28 08:32] LABS: CREATININE 1.1 mg/dL (0.55-1.3)
[2021-07-28 08:34] LABS: BILIRUBIN,TOTAL 0.3 mg/dL (0.2-1); TOT PROT 6.8 g/dl (6.4-8.2)
[2021-07-28] MEDS ORDERED: ALBUTEROL SO4 0.083% IH SOL 2.5 MG/3 ML VIAL.NEB. NEB ONE ×2 (09:21→09:40)
[2021-07-28] MEDS ORDERED: LACTATED RINGERS SOLUTION 1000 ML INFUS.BAG IV ONE (11:08)
[2021-07-28 12:13] VITALS: BP 178/86; PULSE 90
== END 2021-07-28 11:58 | disposition home or self-care (01) ==
LOC: JER 07:12
PROC: 3E033GC Introduction of Other Therapeutic Substance into Peripheral Vein, Percutaneous Approach (ICD-10-PCS; principal; 2021-07-28)
PROC: 3E0F7GC Introduction of Other Therapeutic Substance into Respiratory Tract, Via Natural or Artificial Opening (ICD-10-PCS; 2021-07-28)
DX: J45.901 Unspecified asthma with (acute) exacerbation (principal)
CPT/HCPCS: 0241U-QW; 36415; 71045-TC-FY; 80053; 83735; 84484; 85025; 93005; 93010; 99285-25

== ENCOUNTER 2021-10-11 03:21 | Inpatient (IN) | payer BC ==
[2021-10-11] MEDS ORDERED: methylPREDNISolone NA SUCC 125 MG/2 ML VIAL IVPUSH ONE (04:01)
[2021-10-11] MEDS ORDERED: MAGNESIUM SULF 50% (8.12 MEQ/2 ML-1 GM VIAL) IVPB ONE (04:01)
[2021-10-11] MEDS ORDERED: ONDANSETRON 4 MG/2 ML VIAL IVPUSH ONE (04:02)
[2021-10-11] MEDS ORDERED: ALBUTEROL SO4 2.5/IPRATROPIUM 0.5 INH SOL 3 ML VIAL.NEB. NEB ONE ×2 (04:04→04:40)
[2021-10-11] MEDS ORDERED: methylPREDNISolone NA SUCC 125 MG/2 ML VIAL ONE (04:07)
[2021-10-11] MEDS ORDERED: MAGNESIUM SULFATE IN WATER 2 GM/50 ML IVPB IVPB ONE (04:07)
[2021-10-11] MEDS ORDERED: TRIMETHOBENZAMIDE HCL 200MG/2ML INJ IM ONE ×2 (04:18→04:46)
[2021-10-11] MEDS: ALBUTEROL SO4 2.5/IPRATROPIUM 0.5 INH SOL 3 ML VIAL.NEB. NEB SCH ×4 (04:34→05:10)
[2021-10-11 05:15] LABS: HEMOGLOBIN 8.4 GM/dL (10.7-15.3); RBC 3.17 M/mm3 (3.60-5.2)
[2021-10-11 05:33] LABS: BLOOD UREA NITROGEN 10.6 mg/dL (7-18); CALCIUM 10.1 mg/dL (8.5-10.1); CO2 24 mmol/L (21-32); GLUCOSE,RANDOM 104 mg/dL (74-106)
[2021-10-11 05:36] LABS: CREATININE 0.8 mg/dL (0.55-1.3); SGPT/ALT 8 U/L (13-61)
[2021-10-11 05:37] LABS: BASO % 0.5 % (0-2.0); HEMATOCRIT 26.8 % (32.4-45.2); MCH 26.4 pg (25.7-33.7); MCHC 31.2 g/dl (32.0-36.0); MEAN CELL VOLUME 84.5 fl (80-96); MEAN PLT VOLUME 8.8 fl (7.5-11.1); MONO % 12.5 % (3.8-10.2); PLATELET COUNT 200 10^3/uL (134-434); RDW 17.9 % (11.6-15.6); SGOT/AST 11 U/L (15-37); WHITE BLOOD COUNT 11.5 K/mm3 (4.0-10.0)
[2021-10-11 05:38] LABS: BILIRUBIN,TOTAL 0.3 mg/dL (0.2-1); TOT PROT 5.8 g/dl (6.4-8.2)
[2021-10-11 05:39] LABS: ALK PHOS 78 U/L (45-117)
[2021-10-11] MEDS ORDERED: ACETAMINOPHEN 1000 MG/100 ML BAG IVPB ONE (05:49)
[2021-10-11] MEDS ORDERED: ACETAMINOPHEN INJECTION 100 ML IVPB ONE (05:51)
[2021-10-11 08:30] LABS: ALBUMIN 3.6 g/dl (3.4-5.0); BLOOD UREA NITROGEN 11.5 mg/dL (7-18)
[2021-10-11 08:33] LABS: CREATININE 0.9 mg/dL (0.55-1.3)
[2021-10-11 08:34] LABS: BILIRUBIN,TOTAL 0.2 mg/dL (0.2-1)
[2021-10-11 08:36] LABS: CALCIUM 8.4 mg/dL (8.5-10.1)
[2021-10-11] MEDS ORDERED: POTASSIUM CHLORIDE TABS 20 MEQ TABLET.ER (FP) PO ONE ×2 (08:47→08:54)
[2021-10-11] MEDS ORDERED: IBUPROFEN 600 MG TABLET (FP) PO ONE ×2 (09:13→09:33)
[2021-10-11] MEDS ORDERED: ACETAMINOPHEN 325 MG TABLET (FP) PO PRN (12:09)
[2021-10-11] MEDS ORDERED: ENOXAPARIN NA (PORCINE) 40 MG/0.4 ML DISP.SYRIN SQ ONE (13:10)
[2021-10-11] MEDS ORDERED: DEXAMETHASONE SOD PHOSPHATE 10 MG/1 ML VIAL ONE (13:10)
[2021-10-11] MEDS: ENOXAPARIN NA (PORCINE) 40 MG/0.4 ML DISP.SYRIN SQ SCH (13:18)
[2021-10-11] MEDS: DEXAMETHASONE SOD PHOSPHATE 10 MG/1 ML VIAL IVPUSH SCH (13:18)
[2021-10-11] MEDS: lamiVUDine 150 MG TABLET PO SCH (15:06)
[2021-10-11] MEDS ORDERED: ALBUTEROL SO4 0.083% IH SOL 2.5 MG/3 ML VIAL.NEB. NEB ONE (15:45)
[2021-10-11] MEDS: ALBUTEROL SO4 0.083% IH SOL 2.5 MG/3 ML VIAL.NEB. NEB SCH ×2 (15:51→22:34)
[2021-10-11] MEDS ORDERED: busPIRone HCL 5 MG TABLET ONE (21:33)
[2021-10-11] MEDS ORDERED: MONTELUKAST NA 10 MG TABLET ONE (21:33)
[2021-10-11] MEDS ORDERED: ACETAMINOPHEN 325 MG TABLET (FP) ONE (22:24)
[2021-10-11] MEDS: busPIRone HCL 5 MG TABLET PO SCH (22:34)
[2021-10-11] MEDS: RALTEGRAVIR POTASSIUM 400 MG TAB PO SCH (22:34)
[2021-10-11] MEDS: BUDESONIDE/FORMETEROL FUMARATE 80/4.5 mcg INHALER IH SCH (22:34)
[2021-10-11] MEDS: MONTELUKAST NA 10 MG TABLET PO SCH (22:34)
[2021-10-12 01:24] VITALS: BMI 25.0
[2021-10-12] MEDS: CEFTRIAXONE 1 GM in DEXTROSE 5%-WATER - 50 ML IVPB SCH ×2 (01:44→10:21)
[2021-10-12] MEDS: ALBUTEROL SO4 0.083% IH SOL 2.5 MG/3 ML VIAL.NEB. NEB SCH ×6 (04:00→20:28)
[2021-10-12 07:41] LABS: ALBUMIN 3.3 g/dl (3.4-5.0); CALCIUM 9.2 mg/dL (8.5-10.1)
[2021-10-12 07:42] LABS: BLOOD UREA NITROGEN 22.6 mg/dL (7-18)
[2021-10-12 07:45] LABS: TOT PROT 7.2 g/dl (6.4-8.2)
[2021-10-12 07:46] LABS: BASO % 0.1 % (0-2.0); BILIRUBIN,TOTAL 0.3 mg/dL (0.2-1); HEMOGLOBIN 9.6 GM/dL (10.7-15.3); MCH 26.2 pg (25.7-33.7); MCHC 30.8 g/dl (32.0-36.0); MEAN CELL VOLUME 85.1 fl (80-96); MEAN PLT VOLUME 8.8 fl (7.5-11.1); MONO % 5.4 % (3.8-10.2); NEUT % 81.5 % (42.8-82.8); PLATELET COUNT 285 10^3/uL (134-434); RBC 3.64 M/mm3 (3.60-5.2); RDW 18.4 % (11.6-15.6); WHITE BLOOD COUNT 9.7 K/mm3 (4.0-10.0)
[2021-10-12] MEDS ORDERED: BIOTIN 1000 MCG PO SCH (10:00)
[2021-10-12] MEDS ORDERED: ACETAMINOPHEN 1000 MG/100 ML BAG IVPB PRN (10:07)
[2021-10-12] MEDS ORDERED: ALBUTEROL SO4 2.5/IPRATROPIUM 0.5 INH SOL 3 ML VIAL.NEB. NEB PRN (10:07)
[2021-10-12] MEDS: amLODIPine BESYLATE 5 MG TABLET (FP) PO SCH (10:22)
[2021-10-12] MEDS: ENOXAPARIN NA (PORCINE) 40 MG/0.4 ML DISP.SYRIN SQ SCH (10:22)
[2021-10-12] MEDS: LACTOBACILLUS ACIDOPHILUS 1 TABLET PO SCH (10:22)
[2021-10-12] MEDS: PANTOPRAZOLE 20 MG TABLET PO SCH (10:22)
[2021-10-12] MEDS: busPIRone HCL 5 MG TABLET PO SCH ×2 (10:25→21:05)
[2021-10-12] MEDS: RALTEGRAVIR POTASSIUM 400 MG TAB PO SCH ×2 (10:25→21:05)
[2021-10-12] MEDS: DARUNAVIR ETHANOLATE 800 MG TAB PO SCH (10:26)
[2021-10-12] MEDS: RITONAVIR 100 MG TABLET PO SCH (10:26)
[2021-10-12] MEDS: methylPREDNISolone NA SUCC 125 MG/2 ML VIAL IVPB SCH ×2 (10:42→17:09)
[2021-10-12] MEDS ORDERED: traMADol HCL 50 MG TABLET PO PRN (11:50)
[2021-10-12] MEDS: DEXAMETHASONE SOD PHOSPHATE 10 MG/1 ML VIAL IVPUSH SCH (11:56)
[2021-10-12] MEDS: lamiVUDine 150 MG TABLET PO SCH (12:02)
[2021-10-12] MEDS: BUDESONIDE/FORMETEROL FUMARATE 80/4.5 mcg INHALER IH SCH ×2 (13:00→21:05)
[2021-10-12] MEDS: MONTELUKAST NA 10 MG TABLET PO SCH (21:05)
[2021-10-13] MEDS: ALBUTEROL SO4 0.083% IH SOL 2.5 MG/3 ML VIAL.NEB. NEB SCH ×5 (00:15→15:05)
[2021-10-13] MEDS: methylPREDNISolone NA SUCC 125 MG/2 ML VIAL IVPB SCH ×2 (01:52→09:14)
[2021-10-13 06:23] VITALS: RESP 18
[2021-10-13] MEDS: BUDESONIDE/FORMETEROL FUMARATE 80/4.5 mcg INHALER IH SCH (08:38)
[2021-10-13] MEDS: ENOXAPARIN NA (PORCINE) 40 MG/0.4 ML DISP.SYRIN SQ SCH (09:14)
[2021-10-13] MEDS: CEFTRIAXONE 1 GM in DEXTROSE 5%-WATER - 50 ML IVPB SCH (09:14)
[2021-10-13] MEDS: PANTOPRAZOLE 20 MG TABLET PO SCH (09:15)
[2021-10-13] MEDS: LACTOBACILLUS ACIDOPHILUS 1 TABLET PO SCH (09:15)
[2021-10-13] MEDS: DARUNAVIR ETHANOLATE 800 MG TAB PO SCH (09:15)
[2021-10-13] MEDS: amLODIPine BESYLATE 5 MG TABLET (FP) PO SCH (09:15)
[2021-10-13] MEDS: RALTEGRAVIR POTASSIUM 400 MG TAB PO SCH (09:15)
[2021-10-13] MEDS: RITONAVIR 100 MG TABLET PO SCH (09:16)
[2021-10-13] MEDS: busPIRone HCL 5 MG TABLET PO SCH (09:17)
[2021-10-13] MEDS: lamiVUDine 150 MG TABLET PO SCH (12:10)
[2021-10-13 18:22] VITALS: BP 133/76; PULSE 78; TEMP 97.6
[2021-10-13] MEDS ORDERED: methylPREDNISolone NA SUCC 125 MG/2 ML VIAL IVPB SCH (22:00)
== END 2021-10-13 20:50 | disposition home or self-care (01) | DRG 178 ==
LOC: JER 03:21 → JERBED 05:47 → J4S 10-12 00:09
PROVIDERS: ADMIT Internal Medicine; ATTEND Internal Medicine
DX: U07.1 COVID-19 (principal); J45.901 Unspecified asthma with (acute) exacerbation; J98.11 Atelectasis; I10 Essential (primary) hypertension; E78.5 Hyperlipidemia, unspecified; G62.9 Polyneuropathy, unspecified; Z21 Asymptomatic human immunodeficiency virus [HIV] infection status
CPT/HCPCS: 0241U-QW; 36415; 71046-TC-FY; 80048; 80053; 85025; 86359; 86360; 87536; 93005; 93010; 99285-25; C9803-CS; J1100; U0003; U0005

== ENCOUNTER 2021-10-16 13:25 | Inpatient (IN) | payer BC ==
[2021-10-16] MEDS ORDERED: DEXAMETHASONE SOD PHOSPHATE 10 MG/1 ML VIAL IVPUSH ONE (14:37)
[2021-10-16] MEDS ORDERED: ALBUTEROL SO4 2.5/IPRATROPIUM 0.5 INH SOL 3 ML VIAL.NEB. NEB ONE (14:58)
[2021-10-16] MEDS ORDERED: DEXAMETHASONE SOD PHOSPHATE 10 MG/1 ML VIAL ONE (14:58)
[2021-10-16] MEDS: ALBUTEROL SO4 2.5/IPRATROPIUM 0.5 INH SOL 3 ML VIAL.NEB. NEB SCH ×4 (15:22→16:40)
[2021-10-16 15:31] LABS: BASO % 0.2 % (0-2.0); EOS % 0.1 % (0-4.5); HEMATOCRIT 30.3 % (32.4-45.2); HEMOGLOBIN 9.4 GM/dL (10.7-15.3); LYMPH % 11.4 % (8-40); MCH 26.1 pg (25.7-33.7); MCHC 31.1 g/dl (32.0-36.0); MEAN CELL VOLUME 84.1 fl (80-96); MEAN PLT VOLUME 8.4 fl (7.5-11.1); MONO % 7.7 % (3.8-10.2); NEUT % 80.6 % (42.8-82.8); PLATELET COUNT 230 10^3/uL (134-434); RBC 3.61 M/mm3 (3.60-5.2); RDW 18.3 % (11.6-15.6); WHITE BLOOD COUNT 17.4 K/mm3 (4.0-10.0)
[2021-10-16 15:52] LABS: BLOOD UREA NITROGEN 24.9 mg/dL (7-18); CALCIUM 8.4 mg/dL (8.5-10.1)
[2021-10-16 15:53] LABS: ALBUMIN 3.1 g/dl (3.4-5.0)
[2021-10-16 15:56] LABS: CREATININE 1.2 mg/dL (0.55-1.3)
[2021-10-16 15:57] LABS: BILIRUBIN,TOTAL 0.4 mg/dL (0.2-1); TOT PROT 6.1 g/dl (6.4-8.2)
[2021-10-16] MEDS ORDERED: VANCOMYCIN 1,000 MG in DEXTROSE 5%-WATER - 250 ML IVPB ONE (17:05)
[2021-10-16] MEDS ORDERED: AZITHROMYCIN IVPB 500 MG in DEXTROSE 5%-WATER - 250 ML IVPB ONE (17:05)
[2021-10-16] MEDS ORDERED: PIPERACILLIN/TAZOB 4.5 GM 4.5 GM in DEXTROSE 5%-WATER 100 ML IVPB ONE (17:05)
[2021-10-16] MEDS ORDERED: LACTATED RINGERS SOLUTION 1000 ML INFUS.BAG IV ONE (17:10)
[2021-10-16] MEDS ORDERED: VANCOMYCIN/WATER FOR INJ (PEG) 1,000 MG/200 ML BAG IVPB ONE (17:43)
[2021-10-16] MEDS ORDERED: PIPERACILLIN/TAZOB 4.5 GM 4.5 GM/100 ML BAG IVPB ONE (17:43)
[2021-10-16] MEDS ORDERED: AZITHROMYCIN IVPB 500 MG/250 ML BAG IVPB ONE (17:44)
[2021-10-16] MEDS ORDERED: POTASSIUM CHLORIDE TABS 20 MEQ TABLET.ER (FP) PO ONE ×2 (22:07→23:15)
[2021-10-16] MEDS ORDERED: ACETAMINOPHEN 325 MG TABLET (FP) PO PRN (22:12)
[2021-10-16] MEDS: RALTEGRAVIR POTASSIUM 400 MG TAB PO SCH (23:18)
[2021-10-17] MEDS ORDERED: ALBUTEROL SO4 0.083% IH SOL 2.5 MG/3 ML VIAL.NEB. NEB SCH
[2021-10-17] MEDS: ALBUTEROL SO4 HFA INHALER IH PRN (03:42)
[2021-10-17] MEDS: BUDESONIDE/FORMETEROL FUMARATE 80/4.5 mcg INHALER IH SCH ×3 (03:42→22:29)
[2021-10-17 03:47] VITALS: BMI 21.9
[2021-10-17 08:12] LABS: BASO % 0.1 % (0-2.0); HEMATOCRIT 27.1 % (32.4-45.2); HEMOGLOBIN 8.8 GM/dL (10.7-15.3); LYMPH % 6.4 % (8-40); MCH 27.1 pg (25.7-33.7); MCHC 32.3 g/dl (32.0-36.0); MEAN PLT VOLUME 8.6 fl (7.5-11.1); MONO % 4.1 % (3.8-10.2); NEUT % 89.4 % (42.8-82.8); PLATELET COUNT 222 10^3/uL (134-434); RBC 3.23 M/mm3 (3.60-5.2); RDW 18.1 % (11.6-15.6); WHITE BLOOD COUNT 11.4 K/mm3 (4.0-10.0)
[2021-10-17 08:40] LABS: BLOOD UREA NITROGEN 20.7 mg/dL (7-18)
[2021-10-17 08:41] LABS: ALBUMIN 2.8 g/dl (3.4-5.0); BILIRUBIN,TOTAL 0.3 mg/dL (0.2-1); CALCIUM 8.3 mg/dL (8.5-10.1)
[2021-10-17 08:43] LABS: CREATININE 0.8 mg/dL (0.55-1.3)
[2021-10-17] MEDS: LACTOBACILLUS ACIDOPHILUS 1 TABLET PO SCH (09:58)
[2021-10-17] MEDS: PANTOPRAZOLE 20 MG TABLET PO SCH (09:59)
[2021-10-17] MEDS: amLODIPine BESYLATE 5 MG TABLET (FP) PO SCH (09:59)
[2021-10-17] MEDS: PIPERACILLIN/TAZOB 3.375 GM 3.375 GM in DEXTROSE 5%-WATER - 50 ML IVPB SCH ×2 (09:59→17:11)
[2021-10-17] MEDS ORDERED: lamiVUDine 150 MG TABLET PO SCH (10:00)
[2021-10-17] MEDS ORDERED: DEXAMETHASONE SOD PHOSPHATE 4 MG/1 ML VIAL IVPUSH SCH (10:00)
[2021-10-17] MEDS: RITONAVIR 100 MG TABLET PO SCH (10:31)
[2021-10-17] MEDS: RALTEGRAVIR POTASSIUM 400 MG TAB PO SCH ×2 (10:31→22:29)
[2021-10-17] MEDS: MONTELUKAST NA 10 MG TABLET PO SCH (22:28)
[2021-10-17] MEDS ORDERED: VANCOMYCIN/WATER FOR INJ (PEG) 750 MG/150 ML BAG IVPB SCH (23:00)
[2021-10-17] MEDS ORDERED: VANCOMYCIN 750 MG in DEXTROSE 5%-WATER - 150 ML IVPB SCH (23:00)
[2021-10-18] MEDS: PIPERACILLIN/TAZOB 3.375 GM 3.375 GM in DEXTROSE 5%-WATER - 50 ML IVPB SCH ×3 (01:46→18:23)
[2021-10-18] MEDS: PANTOPRAZOLE 20 MG TABLET PO SCH (10:50)
[2021-10-18] MEDS: BUDESONIDE/FORMETEROL FUMARATE 80/4.5 mcg INHALER IH SCH ×2 (10:50→21:41)
[2021-10-18] MEDS: lamiVUDine 150 MG TABLET PO SCH (10:50)
[2021-10-18] MEDS: RITONAVIR 100 MG TABLET PO SCH (10:50)
[2021-10-18] MEDS: amLODIPine BESYLATE 5 MG TABLET (FP) PO SCH (10:50)
[2021-10-18] MEDS: RALTEGRAVIR POTASSIUM 400 MG TAB PO SCH ×2 (10:50→21:41)
[2021-10-18] MEDS: LACTOBACILLUS ACIDOPHILUS 1 TABLET PO SCH (10:50)
[2021-10-18] MEDS: ENOXAPARIN NA (PORCINE) 40 MG/0.4 ML DISP.SYRIN SQ SCH (11:04)
[2021-10-18] MEDS: ALBUTEROL SO4 HFA INHALER IH PRN (21:41)
[2021-10-18] MEDS: MONTELUKAST NA 10 MG TABLET PO SCH (21:41)
[2021-10-19] MEDS: PIPERACILLIN/TAZOB 3.375 GM 3.375 GM in DEXTROSE 5%-WATER - 50 ML IVPB SCH ×3 (01:39→17:10)
[2021-10-19] MEDS: RALTEGRAVIR POTASSIUM 400 MG TAB PO SCH ×2 (10:09→21:06)
[2021-10-19] MEDS: PANTOPRAZOLE 20 MG TABLET PO SCH (10:09)
[2021-10-19] MEDS: LACTOBACILLUS ACIDOPHILUS 1 TABLET PO SCH (10:09)
[2021-10-19] MEDS: BUDESONIDE/FORMETEROL FUMARATE 80/4.5 mcg INHALER IH SCH ×2 (10:09→21:06)
[2021-10-19] MEDS: amLODIPine BESYLATE 5 MG TABLET (FP) PO SCH (10:09)
[2021-10-19] MEDS: lamiVUDine 150 MG TABLET PO SCH (10:09)
[2021-10-19] MEDS: RITONAVIR 100 MG TABLET PO SCH (10:09)
[2021-10-19] MEDS: ENOXAPARIN NA (PORCINE) 40 MG/0.4 ML DISP.SYRIN SQ SCH (10:09)
[2021-10-19] MEDS: MONTELUKAST NA 10 MG TABLET PO SCH (21:06)
[2021-10-20] MEDS: PIPERACILLIN/TAZOB 3.375 GM 3.375 GM in DEXTROSE 5%-WATER - 50 ML IVPB SCH ×2 (01:06→09:51)
[2021-10-20] MEDS: LACTOBACILLUS ACIDOPHILUS 1 TABLET PO SCH (09:50)
[2021-10-20] MEDS: PANTOPRAZOLE 20 MG TABLET PO SCH (09:50)
[2021-10-20] MEDS: amLODIPine BESYLATE 5 MG TABLET (FP) PO SCH (09:50)
[2021-10-20] MEDS: lamiVUDine 150 MG TABLET PO SCH (09:51)
[2021-10-20] MEDS: RITONAVIR 100 MG TABLET PO SCH (09:51)
[2021-10-20] MEDS: RALTEGRAVIR POTASSIUM 400 MG TAB PO SCH (09:51)
[2021-10-20] MEDS: ENOXAPARIN NA (PORCINE) 40 MG/0.4 ML DISP.SYRIN SQ SCH (09:52)
[2021-10-20] MEDS: BUDESONIDE/FORMETEROL FUMARATE 80/4.5 mcg INHALER IH SCH (09:52)
[2021-10-20 10:07] VITALS: RESP 16
[2021-10-20 11:34] VITALS: BP 131/84; PULSE 88; TEMP 99
== END 2021-10-20 11:35 | disposition home or self-care (01) | DRG 202 ==
LOC: JER 13:25 → JERBED 20:38 → J4S 10-17 02:45
PROVIDERS: ADMIT Internal Medicine; ATTEND Internal Medicine
DX: J45.901 Unspecified asthma with (acute) exacerbation (principal); J12.82 Pneumonia due to coronavirus disease 2019; U07.1 COVID-19; B20 Human immunodeficiency virus [HIV] disease; I10 Essential (primary) hypertension; E78.00 Pure hypercholesterolemia, unspecified; G62.9 Polyneuropathy, unspecified; K21.9 Gastro-esophageal reflux disease without esophagitis; J44.9 Chronic obstructive pulmonary disease, unspecified; R79.89 Other specified abnormal findings of blood chemistry; Z87.11 Personal history of peptic ulcer disease
CPT/HCPCS: 0241U-QW; 36415; 71046-TC-FY; 71275-TC; 80053; 82728; 82962; 83615; 84484; 85025; 85379; 86140; 87040; 93005; 93010; 99285-25; C9803-CS; J1100; U0003; U0005

== ENCOUNTER 2022-01-06 11:06 | Emergency (ER) | payer BC ==
[2022-01-06 11:17] VITALS: PULSE 105; BMI 22.3
[2022-01-06] MEDS ORDERED: DEXAMETHASONE SOD PHOSPHATE 10 MG/1 ML VIAL IVPUSH ONE (12:40)
[2022-01-06] MEDS ORDERED: ALBUTEROL SO4 2.5/IPRATROPIUM 0.5 INH SOL 3 ML VIAL.NEB. NEB SCH (12:45)
[2022-01-06] MEDS ORDERED: SODIUM CHLORIDE 0.9% 500 ML INFUS.BAG IV ONE (12:46)
[2022-01-06] MEDS ORDERED: ALBUTEROL SO4 2.5/IPRATROPIUM 0.5 INH SOL 3 ML VIAL.NEB. NEB ONE (13:05)
[2022-01-06] MEDS ORDERED: DEXAMETHASONE SOD PHOSPHATE 10 MG/1 ML VIAL ONE (13:05)
[2022-01-06 13:29] LABS: BASO % 0.3 % (0-2.0); EOS % 1.1 % (0-4.5); HEMATOCRIT 33.1 % (32.4-45.2); HEMOGLOBIN 10.2 GM/dL (10.7-15.3); LYMPH % 9.1 % (8-40); MCH 24.1 pg (25.7-33.7); MCHC 30.7 g/dl (32.0-36.0); MEAN CELL VOLUME 78.6 fl (80-96); MEAN PLT VOLUME 8.2 fl (7.5-11.1); MONO % 2.5 % (3.8-10.2); PLATELET COUNT 304 10^3/uL (134-434); RBC 4.21 M/mm3 (3.60-5.2); WHITE BLOOD COUNT 7.6 K/mm3 (4.0-10.0)
[2022-01-06 14:30] LABS: CALCIUM 8.8 mg/dL (8.5-10.1)
[2022-01-06 14:31] LABS: ALBUMIN 3.7 g/dl (3.4-5.0); BLOOD UREA NITROGEN 29.3 mg/dL (7-18)
[2022-01-06 14:34] LABS: CREATININE 1.4 mg/dL (0.55-1.3)
[2022-01-06 14:35] LABS: TOT PROT 7.3 g/dl (6.4-8.2)
[2022-01-06 14:36] LABS: BILIRUBIN,TOTAL 0.4 mg/dL (0.2-1)
[2022-01-06 16:14] VITALS: BP 110/78; RESP 20
== END 2022-01-06 16:30 | disposition left against medical advice (07) ==
LOC: JER 11:06
PROC: 3E0333Z Introduction of Anti-inflammatory into Peripheral Vein, Percutaneous Approach (ICD-10-PCS; principal; 2022-01-06)
PROC: 3E0F7GC Introduction of Other Therapeutic Substance into Respiratory Tract, Via Natural or Artificial Opening (ICD-10-PCS; 2022-01-06)
DX: J45.901 Unspecified asthma with (acute) exacerbation (principal)
CPT/HCPCS: 0241U-QW; 36415; 71045-TC-FY; 80053; 85025; 93005; 93010; 99285-25; J1100

== ENCOUNTER 2022-03-23 17:21 | Emergency (ER) | payer BC ==
[2022-03-23 17:28] VITALS: BP 154/79; PULSE 115; RESP 22; TEMP 98; BMI 23.2
[2022-03-23] MEDS: ALBUTEROL SO4 2.5/IPRATROPIUM 0.5 INH SOL 3 ML VIAL.NEB. NEB SCH ×3 (17:32→18:22)
[2022-03-23] MEDS ORDERED: FAMOTIDINE 20 MG/50 ML IVPB 20 MG/50 ML MG IVPB ONE ×2 (18:08→18:32)
[2022-03-23] MEDS ORDERED: MAGNESIUM SULF 50% (8.12 MEQ/2 ML-1 GM VIAL) IVPB ONE (18:08)
[2022-03-23] MEDS ORDERED: ALBUTEROL SO4 2.5/IPRATROPIUM 0.5 INH SOL 3 ML VIAL.NEB. NEB ONE (18:20)
[2022-03-23] MEDS ORDERED: DEXAMETHASONE SOD PHOSPHATE 10 MG/1 ML VIAL ONE (18:21)
[2022-03-23] MEDS ORDERED: MAGNESIUM 1GM/D5W - 1 GM/100 ML IVPB IVPB ONE (18:31)
[2022-03-23] MEDS ORDERED: DEXAMETHASONE SOD PHOSPHATE 10 MG/1 ML VIAL IVPUSH ONE (18:50)
[2022-03-23 19:58] LABS: HEMATOCRIT 26.1 % (32.4-45.2); HEMOGLOBIN 7.7 GM/dL (10.7-15.3); MCH 21.6 pg (25.7-33.7); MCHC 29.5 g/dl (32.0-36.0); MEAN CELL VOLUME 73.3 fl (80-96); MEAN PLT VOLUME 7.8 fl (7.5-11.1); PLATELET COUNT 416 10^3/uL (134-434); RBC 3.56 M/mm3 (3.60-5.2); WHITE BLOOD COUNT 23.6 K/mm3 (4.0-10.0)
[2022-03-23 20:19] LABS: CALCIUM 8.8 mg/dL (8.5-10.1)
[2022-03-23 20:20] LABS: ALBUMIN 3.4 g/dl (3.4-5.0); BLOOD UREA NITROGEN 35.2 mg/dL (7-18)
[2022-03-23 20:23] LABS: CREATININE 1.3 mg/dL (0.55-1.3)
[2022-03-23 20:24] LABS: TOT PROT 7.1 g/dl (6.4-8.2)
[2022-03-23 20:25] LABS: BILIRUBIN,TOTAL 0.3 mg/dL (0.2-1)
[2022-03-23 20:36] LABS: ANISOCYTOSIS 1+; MACROCYTOSIS 0; PLATELET ESTIMATE NORMAL; TARGET CELLS 1+
== END 2022-03-23 20:26 | disposition home or self-care (01) ==
LOC: JERFT 17:21
PROC: 3E0F7GC Introduction of Other Therapeutic Substance into Respiratory Tract, Via Natural or Artificial Opening (ICD-10-PCS; principal; 2022-03-23)
PROC: 3E0333Z Introduction of Anti-inflammatory into Peripheral Vein, Percutaneous Approach (ICD-10-PCS; 2022-03-23)
PROC: 3E033GC Introduction of Other Therapeutic Substance into Peripheral Vein, Percutaneous Approach (ICD-10-PCS; 2022-03-23)
PROC: 3E033GC Introduction of Other Therapeutic Substance into Peripheral Vein, Percutaneous Approach (ICD-10-PCS; 2022-03-23)
DX: J45.901 Unspecified asthma with (acute) exacerbation (principal)
CPT/HCPCS: 36415; 71046-TC-FY; 80053; 85025; 99284-25; J1100

== ENCOUNTER 2022-03-26 09:21 | Inpatient (IN) | payer BC ==
[2022-03-26] MEDS ORDERED: ALBUTEROL SO4 2.5/IPRATROPIUM 0.5 INH SOL 3 ML VIAL.NEB. NEB ONE ×2 (09:30→16:02)
[2022-03-26] MEDS ORDERED: DEXAMETHASONE SOD PHOSPHATE 10 MG/1 ML VIAL ONE (09:30)
[2022-03-26] MEDS ORDERED: ACETAMINOPHEN INJECTION 100 ML IVPB ONE (09:33)
[2022-03-26] MEDS ORDERED: MAGNESIUM SULF 50% (8.12 MEQ/2 ML-1 GM VIAL) IVPB ONE (09:34)
[2022-03-26] MEDS ORDERED: ACETAMINOPHEN 1000 MG/100 ML BAG IVPB ONE (09:34)
[2022-03-26 09:40] VITALS: BMI 23.2
[2022-03-26] MEDS ORDERED: SODIUM CHLORIDE 0.9% 500 ML INFUS.BAG IV ONE ×2 (09:42→16:29)
[2022-03-26] MEDS ORDERED: ALBUTEROL SO4 2.5/IPRATROPIUM 0.5 INH SOL 3 ML VIAL.NEB. NEB SCH (09:45)
[2022-03-26] MEDS ORDERED: VANCOMYCIN 1,000 MG in DEXTROSE 5%-WATER - 250 ML IVPB ONE (09:56)
[2022-03-26] MEDS ORDERED: PIPERACILLIN/TAZOBACTAM 4.5 GM VIAL IVPB ONE (09:56)
[2022-03-26] MEDS ORDERED: MAGNESIUM SULFATE IN WATER 2 GM/50 ML IVPB IVPB ONE (09:59)
[2022-03-26 10:23] LABS: VENOUS BASE EXCESS -3.5 mmol/L (-2-2); VENOUS O2 SATURATION 60.1 % (70-80); VENOUS PH 7.378 (7.310-7.410)
[2022-03-26] MEDS ORDERED: PIPERACILLIN/TAZOB 4.5 GM 4.5 GM/100 ML BAG IVPB ONE (10:23)
[2022-03-26] MEDS ORDERED: VANCOMYCIN/WATER FOR INJ (PEG) 1,000 MG/200 ML BAG IVPB ONE (10:24)
[2022-03-26 10:42] LABS: HEMATOCRIT 26.4 % (32.4-45.2); HEMOGLOBIN 7.8 GM/dL (10.7-15.3); MCH 21.5 pg (25.7-33.7); MCHC 29.5 g/dl (32.0-36.0); MEAN CELL VOLUME 72.8 fl (80-96); MEAN PLT VOLUME 7.9 fl (7.5-11.1); PLATELET COUNT 302 10^3/uL (134-434); RBC 3.63 M/mm3 (3.60-5.2); WHITE BLOOD COUNT 28.9 K/mm3 (4.0-10.0)
[2022-03-26 11:01] LABS: INR 1.15 (0.83-1.09); PROTHROMBIN TIME (PATIENT) 13.3 SEC (9.7-13.0)
[2022-03-26 11:02] LABS: CHLORIDE 103 mmol/L (98-107); SODIUM 136 mmol/L (136-145)
[2022-03-26 11:04] LABS: CALCIUM 8.4 mg/dL (8.5-10.1)
[2022-03-26 11:05] LABS: ALBUMIN 2.8 g/dl (3.4-5.0); ANION GAP 9 MMOL/L (8-16); BLOOD UREA NITROGEN 27.1 mg/dL (7-18); CO2 24 mmol/L (21-32); GLUCOSE,RANDOM 99 mg/dL (74-106)
[2022-03-26 11:08] LABS: CREATININE 1.2 mg/dL (0.55-1.3); SGOT/AST 19 U/L (15-37); SGPT/ALT 20 U/L (13-61)
[2022-03-26 11:09] LABS: BILIRUBIN,TOTAL 0.6 mg/dL (0.2-1); LDH 353 U/L (84-246)
[2022-03-26 11:10] LABS: TOT PROT 6.4 g/dl (6.4-8.2)
[2022-03-26 11:11] LABS: ALK PHOS 123 U/L (45-117)
[2022-03-26] MEDS ORDERED: AZITHROMYCIN IVPB 500 MG in DEXTROSE 5%-WATER - 250 ML IVPB ONE (11:13)
[2022-03-26 11:30] LABS: ANISOCYTOSIS 1+; MACROCYTOSIS 0; OVALOCYTE 1+
[2022-03-26] MEDS ORDERED: AZITHROMYCIN IVPB 500 MG/250 ML BAG IVPB ONE (11:44)
[2022-03-26 11:50] LABS: LACTIC ACID 3.3 mmol/L (0.4-2.0)
[2022-03-26] MEDS ORDERED: ALBUTEROL SO4 0.083% IH SOL 2.5 MG/3 ML VIAL.NEB. NEB PRN (12:29)
[2022-03-26] MEDS ORDERED: BUDESONIDE/FORMETEROL FUMARATE 160/4.5 mcg INHALER IH SCH (12:30)
[2022-03-26 14:52] LABS: URINE APPEARANCE CLEAR; URINE BILIRUBIN NEGATIVE (NEGATIVE); URINE COLOR YELLOW; URINE GLUCOSE (UA) NEGATIVE (NEGATIVE); URINE KETONE NEGATIVE (NEGATIVE); URINE LEUK ESTERASE NEGATIVE (NEGATIVE); URINE NITRITE NEGATIVE (NEGATIVE); URINE PROTEIN TRACE (NEGATIVE); URINE UROBILINOGEN 0.2 mg/dL (0.2-1.0)
[2022-03-26] MEDS: ALBUTEROL SO4 2.5/IPRATROPIUM 0.5 INH SOL 3 ML VIAL.NEB. NEB SCH ×2 (16:11→20:35)
[2022-03-26] MEDS: CEFTRIAXONE 1 GM in DEXTROSE 5%-WATER - 50 ML IVPB SCH (16:24)
[2022-03-26] MEDS ORDERED: CEFTRIAXONE 1 GM/50 ML BAG ONE (16:28)
[2022-03-26 17:23] LABS: ARTERIAL BLD GAS O2 SATURATION 96.2 % (95-98); ARTERIAL BLOOD GAS BASE EXCESS -6.2 mmol/L (-2-2); ARTERIAL BLOOD GAS PO2 80.6 mmHg (80-100); ARTERIAL BLOOD GAS pH 7.408 (7.350-7.450)
[2022-03-26 17:27] LABS: ALLENS TEST POSITIVE
[2022-03-26] MEDS: methylPREDNISolone NA SUCC 40 MG/1 ML VIAL IVPUSH SCH (18:27)
[2022-03-26] MEDS ORDERED: ACETAMINOPHEN 325 MG TABLET (FP) PO PRN (19:51)
[2022-03-26] MEDS ORDERED: lamiVUDine 150 MG TABLET PO SCH (20:00)
[2022-03-26] MEDS ORDERED: MONTELUKAST NA 10 MG TABLET PO SCH (22:00)
[2022-03-26] MEDS: BUDESONIDE/FORMETEROL FUMARATE 80/4.5 mcg INHALER IH SCH (22:06)
[2022-03-26] MEDS: RALTEGRAVIR POTASSIUM 400 MG TAB PO SCH (22:07)
[2022-03-26] MEDS: busPIRone HCL 5 MG TABLET PO SCH (22:12)
[2022-03-27] MEDS: methylPREDNISolone NA SUCC 40 MG/1 ML VIAL IVPUSH SCH ×3 (02:52→17:16)
[2022-03-27] MEDS: MONTELUKAST NA 10 MG TABLET PO SCH ×2 (03:03→21:11)
[2022-03-27 07:55] LABS: HEMATOCRIT 22.1 % (32.4-45.2); MCH 21.5 pg (25.7-33.7); MCHC 29.6 g/dl (32.0-36.0); MEAN CELL VOLUME 72.6 fl (80-96); MEAN PLT VOLUME 7.8 fl (7.5-11.1); PLATELET COUNT 369 10^3/uL (134-434); RBC 3.05 M/mm3 (3.60-5.2); RDW 19.2 % (11.6-15.6); WHITE BLOOD COUNT 26.5 K/mm3 (4.0-10.0)
[2022-03-27 07:59] LABS: HEMOGLOBIN 6.5 GM/dL (10.7-15.3)
[2022-03-27 08:13] LABS: ALBUMIN 2.5 g/dl (3.4-5.0); BLOOD UREA NITROGEN 22.3 mg/dL (7-18); CALCIUM 8.2 mg/dL (8.5-10.1)
[2022-03-27 08:16] LABS: CREATININE 0.9 mg/dL (0.55-1.3)
[2022-03-27 08:18] LABS: BILIRUBIN,TOTAL 0.3 mg/dL (0.2-1); TOT PROT 5.9 g/dl (6.4-8.2)
[2022-03-27] MEDS: ALBUTEROL SO4 2.5/IPRATROPIUM 0.5 INH SOL 3 ML VIAL.NEB. NEB SCH ×4 (08:36→20:00)
[2022-03-27 09:46] LABS: ANISOCYTOSIS 2+; MACROCYTOSIS 0; TARGET CELLS 1+; TEAR DROP CELLS 1+
[2022-03-27] MEDS ORDERED: DARUNAVIR ETHANOLATE 800 MG TAB PO SCH (10:00)
[2022-03-27] MEDS: CEFTRIAXONE 1 GM in DEXTROSE 5%-WATER - 50 ML IVPB SCH (10:38)
[2022-03-27] MEDS: busPIRone HCL 5 MG TABLET PO SCH ×2 (10:39→21:11)
[2022-03-27] MEDS: LACTOBACILLUS ACIDOPHILUS 1 TABLET PO SCH (10:39)
[2022-03-27] MEDS: amLODIPine BESYLATE 5 MG TABLET (FP) PO SCH (10:39)
[2022-03-27] MEDS: AZITHROMYCIN IVPB 500 MG/250 ML BAG IVPB SCH (10:40)
[2022-03-27] MEDS: BUDESONIDE/FORMETEROL FUMARATE 80/4.5 mcg INHALER IH SCH ×2 (10:43→21:13)
[2022-03-27] MEDS: lamiVUDine 150 MG TABLET PO SCH (10:55)
[2022-03-27] MEDS: RALTEGRAVIR POTASSIUM 400 MG TAB PO SCH ×2 (10:56→21:11)
[2022-03-27] MEDS: FLUCONAZOLE 100 MG TABLET (UD) PO SCH (13:55)
[2022-03-27] MEDS ORDERED: FUROSEMIDE 40 MG/4 ML INJECTABLE VIAL IVPUSH ONE (13:58)
[2022-03-27] MEDS: DARUNAVIR ETHANOLATE 800 MG TAB PO SCH (14:51)
[2022-03-27] MEDS: RITONAVIR 100 MG TABLET PO SCH (14:52)
[2022-03-28] MEDS: methylPREDNISolone NA SUCC 40 MG/1 ML VIAL IVPUSH SCH ×4 (02:53→21:59)
[2022-03-28 07:58] LABS: HEMATOCRIT 32.8 % (32.4-45.2); HEMOGLOBIN 10.7 GM/dL (10.7-15.3); MCH 24.8 pg (25.7-33.7); MCHC 32.5 g/dl (32.0-36.0); MEAN CELL VOLUME 76.3 fl (80-96); MEAN PLT VOLUME 7.6 fl (7.5-11.1); PLATELET COUNT 346 10^3/uL (134-434); RDW 19.2 % (11.6-15.6)
[2022-03-28 08:19] LABS: WHITE BLOOD COUNT 33.7 K/mm3 (4.0-10.0)
[2022-03-28 08:32] LABS: ALBUMIN 2.8 g/dl (3.4-5.0)
[2022-03-28 08:33] LABS: CREATININE 1.1 mg/dL (0.55-1.3); TOT PROT 6.5 g/dl (6.4-8.2)
[2022-03-28 08:34] LABS: BILIRUBIN,TOTAL 1.4 mg/dL (0.2-1); BLOOD UREA NITROGEN 36.3 mg/dL (7-18); CALCIUM 8.9 mg/dL (8.5-10.1)
[2022-03-28 09:28] LABS: ANISOCYTOSIS 0; MACROCYTOSIS 0
[2022-03-28] MEDS: ALBUTEROL SO4 2.5/IPRATROPIUM 0.5 INH SOL 3 ML VIAL.NEB. NEB SCH ×4 (09:33→21:01)
[2022-03-28] MEDS: CEFTRIAXONE 1 GM in DEXTROSE 5%-WATER - 50 ML IVPB SCH (10:30)
[2022-03-28] MEDS: amLODIPine BESYLATE 5 MG TABLET (FP) PO SCH (10:31)
[2022-03-28] MEDS: FLUCONAZOLE 100 MG TABLET (UD) PO SCH (10:31)
[2022-03-28] MEDS: busPIRone HCL 5 MG TABLET PO SCH ×2 (10:31→21:58)
[2022-03-28] MEDS: LACTOBACILLUS ACIDOPHILUS 1 TABLET PO SCH (10:31)
[2022-03-28] MEDS: lamiVUDine 150 MG TABLET PO SCH (10:32)
[2022-03-28] MEDS: DARUNAVIR ETHANOLATE 800 MG TAB PO SCH (10:32)
[2022-03-28] MEDS: RITONAVIR 100 MG TABLET PO SCH (10:32)
[2022-03-28] MEDS: RALTEGRAVIR POTASSIUM 400 MG TAB PO SCH ×2 (10:32→21:59)
[2022-03-28] MEDS: BUDESONIDE/FORMETEROL FUMARATE 80/4.5 mcg INHALER IH SCH ×2 (10:45→22:01)
[2022-03-28] MEDS: AZITHROMYCIN IVPB 500 MG/250 ML BAG IVPB SCH (10:45)
[2022-03-28] MEDS ORDERED: BENZOCAINE/MENTH/CETYLPYRD CL 1 EACH LOZENGE MM PRN (13:03)
[2022-03-28] MEDS ORDERED: PROMETHAZINE HCL 25 MG/1 ML VIAL IVPB ONE (20:51)
[2022-03-28] MEDS: MONTELUKAST NA 10 MG TABLET PO SCH (21:58)
[2022-03-29] MEDS: methylPREDNISolone NA SUCC 40 MG/1 ML VIAL IVPUSH SCH ×4 (03:56→22:19)
[2022-03-29] MEDS: ALBUTEROL SO4 2.5/IPRATROPIUM 0.5 INH SOL 3 ML VIAL.NEB. NEB SCH ×4 (07:56→20:04)
[2022-03-29] MEDS: CEFTRIAXONE 1 GM in DEXTROSE 5%-WATER - 50 ML IVPB SCH (09:42)
[2022-03-29] MEDS: AZITHROMYCIN IVPB 500 MG/250 ML BAG IVPB SCH (09:53)
[2022-03-29] MEDS: LIDOCAINE VISCOUS 2% ORAL/TOP 15 ML UNIT-DOSE CUP MM PRN ×2 (11:16→17:18)
[2022-03-29] MEDS: amLODIPine BESYLATE 5 MG TABLET (FP) PO SCH (11:16)
[2022-03-29] MEDS: LACTOBACILLUS ACIDOPHILUS 1 TABLET PO SCH (11:16)
[2022-03-29] MEDS: RITONAVIR 100 MG TABLET PO SCH (11:17)
[2022-03-29] MEDS: DARUNAVIR ETHANOLATE 800 MG TAB PO SCH (11:17)
[2022-03-29] MEDS: FLUCONAZOLE 100 MG TABLET (UD) PO SCH (11:17)
[2022-03-29] MEDS: busPIRone HCL 5 MG TABLET PO SCH ×2 (11:17→22:19)
[2022-03-29] MEDS: lamiVUDine 150 MG TABLET PO SCH (11:19)
[2022-03-29] MEDS: RALTEGRAVIR POTASSIUM 400 MG TAB PO SCH ×2 (11:19→22:18)
[2022-03-29] MEDS: BUDESONIDE/FORMETEROL FUMARATE 80/4.5 mcg INHALER IH SCH ×2 (11:20→22:19)
[2022-03-29] MEDS: NYSTATIN 500,000 UNITS/5 ML SUSPENSION PO SCH ×3 (12:02→23:08)
[2022-03-29] MEDS: valACYclovir HCL 500 MG TABLET (FP) PO SCH ×2 (13:53→22:20)
[2022-03-29] MEDS: PIPERACILLIN/TAZOB 3.375 GM 3.375 GM in DEXTROSE 5%-WATER - 50 ML IVPB SCH (17:15)
[2022-03-29] MEDS: MONTELUKAST NA 10 MG TABLET PO SCH (22:19)
[2022-03-30] MEDS: PIPERACILLIN/TAZOB 3.375 GM 3.375 GM in DEXTROSE 5%-WATER - 50 ML IVPB SCH ×3 (02:03→17:55)
[2022-03-30] MEDS: methylPREDNISolone NA SUCC 40 MG/1 ML VIAL IVPUSH SCH ×4 (02:03→22:44)
[2022-03-30] MEDS: NYSTATIN 500,000 UNITS/5 ML SUSPENSION PO SCH ×4 (05:59→18:03)
[2022-03-30] MEDS: ALBUTEROL SO4 2.5/IPRATROPIUM 0.5 INH SOL 3 ML VIAL.NEB. NEB SCH ×4 (07:15→20:32)
[2022-03-30 08:42] LABS: HEMATOCRIT 34.6 % (32.4-45.2); HEMOGLOBIN 11.1 GM/dL (10.7-15.3); LYMPH % 4.1 % (8-40); MCH 24.6 pg (25.7-33.7); MCHC 32.2 g/dl (32.0-36.0); MEAN CELL VOLUME 76.6 fl (80-96); MEAN PLT VOLUME 7.6 fl (7.5-11.1); MONO % 3.1 % (3.8-10.2); NEUT % 92.8 % (42.8-82.8); PLATELET COUNT 368 10^3/uL (134-434); RBC 4.52 M/mm3 (3.60-5.2); RDW 20.2 % (11.6-15.6); WHITE BLOOD COUNT 19.3 K/mm3 (4.0-10.0)
[2022-03-30 09:26] LABS: CALCIUM 9.2 mg/dL (8.5-10.1)
[2022-03-30 09:27] LABS: BLOOD UREA NITROGEN 34.4 mg/dL (7-18)
[2022-03-30] MEDS: AZITHROMYCIN IVPB 500 MG/250 ML BAG IVPB SCH (09:33)
[2022-03-30] MEDS: valACYclovir HCL 500 MG TABLET (FP) PO SCH ×2 (09:33→22:43)
[2022-03-30 09:34] LABS: ANISOCYTOSIS 3+; MACROCYTOSIS 0
[2022-03-30] MEDS: LACTOBACILLUS ACIDOPHILUS 1 TABLET PO SCH (09:34)
[2022-03-30] MEDS: BUDESONIDE/FORMETEROL FUMARATE 80/4.5 mcg INHALER IH SCH ×2 (09:34→22:44)
[2022-03-30] MEDS: busPIRone HCL 5 MG TABLET PO SCH ×2 (09:34→22:44)
[2022-03-30] MEDS: amLODIPine BESYLATE 5 MG TABLET (FP) PO SCH (09:34)
[2022-03-30] MEDS: FLUCONAZOLE 100 MG TABLET (UD) PO SCH (09:34)
[2022-03-30] MEDS: RITONAVIR 100 MG TABLET PO SCH (09:37)
[2022-03-30] MEDS: DARUNAVIR ETHANOLATE 800 MG TAB PO SCH (09:37)
[2022-03-30] MEDS: RALTEGRAVIR POTASSIUM 400 MG TAB PO SCH ×2 (09:38→22:44)
[2022-03-30] MEDS: lamiVUDine 150 MG TABLET PO SCH (09:38)
[2022-03-30] MEDS ORDERED: ALBUTEROL SO4 0.083% IH SOL 2.5 MG/3 ML VIAL.NEB. NEB PRN (16:41)
[2022-03-30] MEDS: LIDOCAINE VISCOUS 2% ORAL/TOP 15 ML UNIT-DOSE CUP MM PRN ×2 (17:55→22:52)
[2022-03-30] MEDS: MONTELUKAST NA 10 MG TABLET PO SCH (22:43)
[2022-03-31] MEDS: NYSTATIN 500,000 UNITS/5 ML SUSPENSION PO SCH ×4 (01:52→17:42)
[2022-03-31] MEDS: PIPERACILLIN/TAZOB 3.375 GM 3.375 GM in DEXTROSE 5%-WATER - 50 ML IVPB SCH ×3 (01:52→17:42)
[2022-03-31] MEDS: methylPREDNISolone NA SUCC 40 MG/1 ML VIAL IVPUSH SCH ×3 (03:27→17:42)
[2022-03-31] MEDS: ACETAMINOPHEN 325 MG TABLET (FP) PO PRN ×2 (06:28→21:42)
[2022-03-31] MEDS: ALBUTEROL SO4 2.5/IPRATROPIUM 0.5 INH SOL 3 ML VIAL.NEB. NEB SCH ×4 (07:26→19:33)
[2022-03-31] MEDS: amLODIPine BESYLATE 5 MG TABLET (FP) PO SCH (09:08)
[2022-03-31] MEDS: FLUCONAZOLE 100 MG TABLET (UD) PO SCH (09:08)
[2022-03-31] MEDS: LACTOBACILLUS ACIDOPHILUS 1 TABLET PO SCH (09:08)
[2022-03-31] MEDS: RALTEGRAVIR POTASSIUM 400 MG TAB PO SCH ×2 (09:08→22:32)
[2022-03-31] MEDS: valACYclovir HCL 500 MG TABLET (FP) PO SCH ×2 (09:08→21:39)
[2022-03-31] MEDS: busPIRone HCL 5 MG TABLET PO SCH ×2 (09:08→21:39)
[2022-03-31] MEDS: RITONAVIR 100 MG TABLET PO SCH (09:09)
[2022-03-31] MEDS: DARUNAVIR ETHANOLATE 800 MG TAB PO SCH (09:09)
[2022-03-31] MEDS: lamiVUDine 150 MG TABLET PO SCH (09:10)
[2022-03-31] MEDS: BUDESONIDE/FORMETEROL FUMARATE 80/4.5 mcg INHALER IH SCH ×2 (09:11→21:40)
[2022-03-31] MEDS: MONTELUKAST NA 10 MG TABLET PO SCH (21:39)
[2022-03-31] MEDS: LIDOCAINE VISCOUS 2% ORAL/TOP 15 ML UNIT-DOSE CUP MM PRN (21:43)
[2022-04-01] MEDS: NYSTATIN 500,000 UNITS/5 ML SUSPENSION PO SCH ×4 (01:00→17:47)
[2022-04-01] MEDS: methylPREDNISolone NA SUCC 40 MG/1 ML VIAL IVPUSH SCH ×3 (02:10→17:47)
[2022-04-01] MEDS: PIPERACILLIN/TAZOB 3.375 GM 3.375 GM in DEXTROSE 5%-WATER - 50 ML IVPB SCH ×3 (02:10→17:47)
[2022-04-01] MEDS: ACETAMINOPHEN 325 MG TABLET (FP) PO PRN (07:11)
[2022-04-01] MEDS: ALBUTEROL SO4 2.5/IPRATROPIUM 0.5 INH SOL 3 ML VIAL.NEB. NEB SCH ×4 (08:40→20:28)
[2022-04-01] MEDS ORDERED: traMADol HCL 50 MG TABLET PO PRN ×2 (10:21→12:04)
[2022-04-01] MEDS: busPIRone HCL 5 MG TABLET PO SCH ×2 (10:49→21:48)
[2022-04-01] MEDS: valACYclovir HCL 500 MG TABLET (FP) PO SCH ×2 (10:49→21:46)
[2022-04-01] MEDS: LACTOBACILLUS ACIDOPHILUS 1 TABLET PO SCH (10:49)
[2022-04-01] MEDS: amLODIPine BESYLATE 5 MG TABLET (FP) PO SCH (10:49)
[2022-04-01] MEDS: RALTEGRAVIR POTASSIUM 400 MG TAB PO SCH ×2 (10:51→21:48)
[2022-04-01] MEDS: FLUCONAZOLE 100 MG TABLET (UD) PO SCH (10:51)
[2022-04-01] MEDS: BUDESONIDE/FORMETEROL FUMARATE 80/4.5 mcg INHALER IH SCH ×2 (10:52→21:49)
[2022-04-01] MEDS: RITONAVIR 100 MG TABLET PO SCH (10:52)
[2022-04-01] MEDS: lamiVUDine 150 MG TABLET PO SCH (10:52)
[2022-04-01] MEDS: DARUNAVIR ETHANOLATE 800 MG TAB PO SCH (10:52)
[2022-04-01 13:41] VITALS: RESP 18
[2022-04-01] MEDS: MONTELUKAST NA 10 MG TABLET PO SCH (21:47)
[2022-04-02] MEDS: NYSTATIN 500,000 UNITS/5 ML SUSPENSION PO SCH ×3 (00:30→11:49)
[2022-04-02] MEDS: PIPERACILLIN/TAZOB 3.375 GM 3.375 GM in DEXTROSE 5%-WATER - 50 ML IVPB SCH ×2 (02:48→09:51)
[2022-04-02] MEDS: ALBUTEROL SO4 2.5/IPRATROPIUM 0.5 INH SOL 3 ML VIAL.NEB. NEB SCH ×3 (09:13→15:36)
[2022-04-02] MEDS: busPIRone HCL 5 MG TABLET PO SCH (09:51)
[2022-04-02] MEDS: LACTOBACILLUS ACIDOPHILUS 1 TABLET PO SCH (09:51)
[2022-04-02] MEDS: amLODIPine BESYLATE 5 MG TABLET (FP) PO SCH (09:51)
[2022-04-02] MEDS: valACYclovir HCL 500 MG TABLET (FP) PO SCH (09:51)
[2022-04-02] MEDS: FLUCONAZOLE 100 MG TABLET (UD) PO SCH (09:53)
[2022-04-02] MEDS: DARUNAVIR ETHANOLATE 800 MG TAB PO SCH (10:00)
[2022-04-02] MEDS: RITONAVIR 100 MG TABLET PO SCH (10:00)
[2022-04-02] MEDS ORDERED: predniSONE 20 MG TABLET (UD) PO SCH (10:00)
[2022-04-02] MEDS: RALTEGRAVIR POTASSIUM 400 MG TAB PO SCH (10:01)
[2022-04-02] MEDS: lamiVUDine 150 MG TABLET PO SCH (10:02)
[2022-04-02] MEDS: BUDESONIDE/FORMETEROL FUMARATE 80/4.5 mcg INHALER IH SCH (10:02)
[2022-04-02 10:23] LABS: HEMATOCRIT 33.3 % (32.4-45.2); HEMOGLOBIN 10.8 GM/dL (10.7-15.3); MCHC 32.3 g/dl (32.0-36.0); MEAN CELL VOLUME 77.2 fl (80-96); MEAN PLT VOLUME 7.4 fl (7.5-11.1); PLATELET COUNT 313 10^3/uL (134-434); RBC 4.32 M/mm3 (3.60-5.2); RDW 20.2 % (11.6-15.6)
[2022-04-02 10:46] LABS: ALBUMIN 2.6 g/dl (3.4-5.0); BLOOD UREA NITROGEN 30.8 mg/dL (7-18)
[2022-04-02 10:49] LABS: ANISOCYTOSIS 3+; PLATELET ESTIMATE INCREASED
[2022-04-02 10:50] LABS: BILIRUBIN,TOTAL 0.3 mg/dL (0.2-1); TOT PROT 5.8 g/dl (6.4-8.2)
[2022-04-02 13:56] VITALS: BP 130/63; TEMP 97.8
[2022-04-02 14:16] VITALS: PULSE 130
== END 2022-04-02 16:20 | disposition home or self-care (01) | DRG 975 ==
LOC: JER 09:21 → JERBED 11:31 → UNDOADMIN 11:31 → J4W 18:04 → J6S 03-30 16:44
PROVIDERS: ADMIT Internal Medicine; ATTEND Internal Medicine
PROC: 30233N1 Transfusion of Nonautologous Red Blood Cells into Peripheral Vein, Percutaneous Approach (ICD-10-PCS; principal; 2022-03-27)
DX: J18.9 Pneumonia, unspecified organism (principal); B20 Human immunodeficiency virus [HIV] disease; E87.20 Acidosis, unspecified; J45.901 Unspecified asthma with (acute) exacerbation; E78.5 Hyperlipidemia, unspecified; K21.9 Gastro-esophageal reflux disease without esophagitis; I10 Essential (primary) hypertension; D64.9 Anemia, unspecified; K13.0 Diseases of lips; G62.9 Polyneuropathy, unspecified
CPT/HCPCS: 0241U-QW; 36415; 36430; 36511; 36600; 71045-TC-FY; 71260-TC; 74176-TC; 80048; 80053; 81003; 82272; 82550; 82553; 82607; 82728; 82746; 82803; 83540; 83550; 83605; 83615; 84484; 85025; 85610; 85730; 86359; 86360; 86850; 86900; 86901; 86922; 87040; 87070; 87086; 87186; 87205; 87324; 87449; 87899; 93005; 93010; 94640; 94660; 94761; 99285-25; P9016; P9058

== ENCOUNTER 2022-07-03 08:01 | Inpatient (IN) | payer BC ==
[2022-07-03] MEDS ORDERED: ACETAMINOPHEN 1000 MG/100 ML BAG IVPB ONE (08:32)
[2022-07-03] MEDS ORDERED: LACTATED RINGERS SOLUTION 1000 ML INFUS.BAG IV ONE (08:32)
[2022-07-03 09:08] LABS: BASO % 0.3 % (0-2.0); EOS % 4.7 % (0-4.5); HEMOGLOBIN 11.6 GM/dL (10.7-15.3); LYMPH % 12.6 % (8-40); MCH 28.8 pg (25.7-33.7); MCHC 33.3 g/dl (32.0-36.0); MEAN CELL VOLUME 86.6 fl (80-96); MEAN PLT VOLUME 8.4 fl (7.5-11.1); MONO % 5.5 % (3.8-10.2); NEUT % 76.9 % (42.8-82.8); PLATELET COUNT 334 10^3/uL (134-434); RBC 4.04 M/mm3 (3.60-5.2); RDW 18.4 % (11.6-15.6); WHITE BLOOD COUNT 11.9 K/mm3 (4.0-10.0)
[2022-07-03] MEDS ORDERED: ACETAMINOPHEN INJECTION 100 ML IVPB ONE (09:18)
[2022-07-03] MEDS ORDERED: MAGNESIUM 1GM/D5W - 1 GM/100 ML IVPB IVPB ONE (09:18)
[2022-07-03] MEDS ORDERED: ALBUTEROL SO4 2.5/IPRATROPIUM 0.5 INH SOL 3 ML VIAL.NEB. NEB ONE (09:18)
[2022-07-03 09:22] LABS: ACTIVATED PTT 27.8 SECONDS (25.2-36.5); INR 1.03 (0.83-1.09)
[2022-07-03 09:30] LABS: MAGNESIUM 2.1 mg/dL (1.8-2.4)
[2022-07-03] MEDS: ALBUTEROL SO4 2.5/IPRATROPIUM 0.5 INH SOL 3 ML VIAL.NEB. NEB SCH ×3 (09:32→12:00)
[2022-07-03 09:34] LABS: PHOSPHOROUS 2.9 mg/dL (2.5-4.9)
[2022-07-03 11:43] LABS: CHLORIDE 111 mmol/L (98-107); POTASSIUM 3.8 mmol/L (3.5-5.1); SODIUM 143 mmol/L (136-145)
[2022-07-03 11:45] LABS: ANION GAP 10 MMOL/L (8-16); BLOOD UREA NITROGEN 13.5 mg/dL (7-18); CALCIUM 9.4 mg/dL (8.5-10.1); CO2 22 mmol/L (21-32)
[2022-07-03 11:46] LABS: ALBUMIN 3.6 g/dl (3.4-5.0); GLUCOSE,RANDOM 122 mg/dL (74-106)
[2022-07-03 11:48] LABS: CHOLESTEROL 212 mg/dL (50-200); CREATININE 0.7 mg/dL (0.55-1.3); SGOT/AST 18 U/L (15-37); SGPT/ALT 19 U/L (13-61)
[2022-07-03 11:49] LABS: LDL CHOLESTEROL (ONLY SJRH) 128 mg/dL (5-100)
[2022-07-03 11:50] LABS: BILIRUBIN,TOTAL 0.4 mg/dL (0.2-1); TOT PROT 7.1 g/dl (6.4-8.2)
[2022-07-03 11:51] LABS: PH,URINE 7.5 (5.0-8.0); URINE APPEARANCE CLEAR; URINE BILIRUBIN NEGATIVE (NEGATIVE); URINE COLOR YELLOW; URINE GLUCOSE (UA) NEGATIVE (NEGATIVE); URINE KETONE NEGATIVE (NEGATIVE); URINE LEUK ESTERASE NEGATIVE (NEGATIVE); URINE NITRITE NEGATIVE (NEGATIVE); URINE PROTEIN NEGATIVE (NEGATIVE); URINE UROBILINOGEN 0.2 mg/dL (0.2-1.0)
[2022-07-03 11:51] LABS: ALK PHOS 88 U/L (45-117); HDL CHOLESTEROL 50 mg/dL (40-60)
[2022-07-03] MEDS ORDERED: ASPIRIN 81 MG CHEWABLE TABLETS PO ONE (12:57)
[2022-07-03] MEDS ORDERED: ASPIRIN 325 MG TABLET PO ONE (12:58)
[2022-07-03] MEDS ORDERED: ASPIRIN 325 MG TABLET ONE (13:18)
[2022-07-03] MEDS ORDERED: ALBUTEROL SO4 HFA INHALER IH PRN (15:50)
[2022-07-03] MEDS ORDERED: ACETAMINOPHEN 325 MG TABLET (FP) PO PRN (15:54)
[2022-07-03] MEDS ORDERED: lamiVUDine 150 MG TABLET PO SCH (16:00)
[2022-07-03] MEDS ORDERED: ALBUTEROL SO4 0.083% IH SOL 2.5 MG/3 ML VIAL.NEB. NEB ONE (16:50)
[2022-07-03] MEDS: ALBUTEROL SO4 0.083% IH SOL 2.5 MG/3 ML VIAL.NEB. NEB SCH ×2 (16:51→20:00)
[2022-07-04 00:31] VITALS: BMI 20.7
[2022-07-04] MEDS: ALBUTEROL SO4 0.083% IH SOL 2.5 MG/3 ML VIAL.NEB. NEB SCH ×6 (00:32→20:05)
[2022-07-04] MEDS ORDERED: ACETAMINOPHEN INJECTION 100 ML IVPB ONE (03:47)
[2022-07-04 08:25] LABS: BASO % 0.6 % (0-2.0); EOS % 9.3 % (0-4.5); HEMATOCRIT 33.6 % (32.4-45.2); HEMOGLOBIN 11.1 GM/dL (10.7-15.3); LYMPH % 25.4 % (8-40); MCH 28.6 pg (25.7-33.7); MEAN CELL VOLUME 86.7 fl (80-96); MEAN PLT VOLUME 8.6 fl (7.5-11.1); MONO % 8.2 % (3.8-10.2); NEUT % 56.5 % (42.8-82.8); PLATELET COUNT 303 10^3/uL (134-434); RBC 3.88 M/mm3 (3.60-5.2); RDW 18.7 % (11.6-15.6); WHITE BLOOD COUNT 9.2 K/mm3 (4.0-10.0)
[2022-07-04 08:48] LABS: POTASSIUM 3.2 mmol/L (3.5-5.1)
[2022-07-04 08:56] LABS: CHOLESTEROL 208 mg/dL (50-200)
[2022-07-04 08:57] LABS: HDL CHOLESTEROL 50 mg/dL (40-60)
[2022-07-04 08:59] LABS: LDL CHOLESTEROL (ONLY SJRH) 125 mg/dL (5-100)
[2022-07-04 09:18] LABS: ALBUMIN 3.3 g/dl (3.4-5.0); BLOOD UREA NITROGEN 9.6 mg/dL (7-18)
[2022-07-04 09:21] LABS: CREATININE 0.7 mg/dL (0.55-1.3)
[2022-07-04 09:22] LABS: BILIRUBIN,TOTAL 0.5 mg/dL (0.2-1); TOT PROT 6.4 g/dl (6.4-8.2)
[2022-07-04] MEDS ORDERED: BIOTIN 1000 MCG PO SCH (10:00)
[2022-07-04] MEDS: PANTOPRAZOLE 20 MG TABLET PO SCH (10:05)
[2022-07-04] MEDS: HEPARIN NA (PORCINE) 5,000 UNITS/ML 1ML VIAL SQ SCH ×4 (10:05→21:30)
[2022-07-04] MEDS: valACYclovir HCL 500 MG TABLET (FP) PO SCH ×3 (10:05→21:30)
[2022-07-04] MEDS: ASPIRIN COATED 81 MG TABLET.EC PO SCH (10:05)
[2022-07-04] MEDS: busPIRone HCL 5 MG TABLET PO SCH ×3 (10:05→21:30)
[2022-07-04] MEDS: LACTOBACILLUS ACIDOPHILUS 1 TABLET PO SCH (10:06)
[2022-07-04] MEDS: RITONAVIR 100 MG TABLET PO SCH (10:07)
[2022-07-04] MEDS: RALTEGRAVIR POTASSIUM 400 MG TAB PO SCH ×4 (10:07→21:36)
[2022-07-04] MEDS: lamiVUDine 150 MG TABLET PO SCH (10:07)
[2022-07-04] MEDS: DARUNAVIR ETHANOLATE 800 MG TAB PO SCH (10:08)
[2022-07-04] MEDS: BUDESONIDE/FORMETEROL FUMARATE 80/4.5 mcg INHALER IH SCH ×3 (10:09→21:30)
[2022-07-04] MEDS ORDERED: POTASSIUM CHLORIDE TABS 20 MEQ TABLET.ER (FP) PO ONE (15:15)
[2022-07-04] MEDS: MONTELUKAST NA 10 MG TABLET PO SCH ×2 (20:01→21:30)
[2022-07-04] MEDS: ATORVASTATIN CA 80 MG TABLET (FP) PO SCH ×2 (20:01→21:31)
[2022-07-05] MEDS: ALBUTEROL SO4 0.083% IH SOL 2.5 MG/3 ML VIAL.NEB. NEB SCH ×6 (04:00→20:48)
[2022-07-05] MEDS: LACTOBACILLUS ACIDOPHILUS 1 TABLET PO SCH (09:17)
[2022-07-05] MEDS: HEPARIN NA (PORCINE) 5,000 UNITS/ML 1ML VIAL SQ SCH ×2 (09:17→21:23)
[2022-07-05] MEDS: PANTOPRAZOLE 20 MG TABLET PO SCH (09:17)
[2022-07-05] MEDS: busPIRone HCL 5 MG TABLET PO SCH ×2 (09:17→21:23)
[2022-07-05] MEDS: ASPIRIN COATED 81 MG TABLET.EC PO SCH (09:17)
[2022-07-05] MEDS: valACYclovir HCL 500 MG TABLET (FP) PO SCH ×2 (09:17→21:28)
[2022-07-05] MEDS: RALTEGRAVIR POTASSIUM 400 MG TAB PO SCH ×2 (09:18→21:28)
[2022-07-05] MEDS: RITONAVIR 100 MG TABLET PO SCH (09:18)
[2022-07-05] MEDS: lamiVUDine 150 MG TABLET PO SCH (09:18)
[2022-07-05] MEDS: DARUNAVIR ETHANOLATE 800 MG TAB PO SCH (09:18)
[2022-07-05] MEDS: BUDESONIDE/FORMETEROL FUMARATE 80/4.5 mcg INHALER IH SCH ×2 (09:19→21:24)
[2022-07-05] MEDS: methylPREDNISolone NA SUCC 125 MG/2 ML VIAL IVPUSH SCH ×2 (12:11→17:36)
[2022-07-05] MEDS: ATORVASTATIN CA 80 MG TABLET (FP) PO SCH (21:23)
[2022-07-05] MEDS: MONTELUKAST NA 10 MG TABLET PO SCH (21:28)
[2022-07-06] MEDS: ALBUTEROL SO4 0.083% IH SOL 2.5 MG/3 ML VIAL.NEB. NEB SCH ×6 (00:32→20:05)
[2022-07-06] MEDS: methylPREDNISolone NA SUCC 125 MG/2 ML VIAL IVPUSH SCH ×2 (01:28→09:36)
[2022-07-06] MEDS: valACYclovir HCL 500 MG TABLET (FP) PO SCH ×2 (09:36→21:05)
[2022-07-06] MEDS: ASPIRIN COATED 81 MG TABLET.EC PO SCH (09:36)
[2022-07-06] MEDS: PANTOPRAZOLE 20 MG TABLET PO SCH (09:36)
[2022-07-06] MEDS: LACTOBACILLUS ACIDOPHILUS 1 TABLET PO SCH (09:36)
[2022-07-06] MEDS: busPIRone HCL 5 MG TABLET PO SCH ×2 (09:36→21:05)
[2022-07-06] MEDS: HEPARIN NA (PORCINE) 5,000 UNITS/ML 1ML VIAL SQ SCH ×2 (09:37→21:05)
[2022-07-06] MEDS: RITONAVIR 100 MG TABLET PO SCH (09:38)
[2022-07-06] MEDS: DARUNAVIR ETHANOLATE 800 MG TAB PO SCH (09:38)
[2022-07-06] MEDS: RALTEGRAVIR POTASSIUM 400 MG TAB PO SCH ×2 (09:38→21:06)
[2022-07-06] MEDS: BUDESONIDE/FORMETEROL FUMARATE 80/4.5 mcg INHALER IH SCH ×2 (09:39→22:28)
[2022-07-06] MEDS: lamiVUDine 150 MG TABLET PO SCH (09:40)
[2022-07-06] MEDS ORDERED: ACETAMINOPHEN 325 MG TABLET (FP) PO PRN (12:01)
[2022-07-06] MEDS ORDERED: ALBUTEROL SO4 HFA INHALER IH PRN ×2 (12:01→19:53)
[2022-07-06] MEDS: methylPREDNISolone NA SUCC 40 MG/1 ML VIAL IVPUSH SCH (17:29)
[2022-07-06] MEDS: MONTELUKAST NA 10 MG TABLET PO SCH (21:05)
[2022-07-06] MEDS: ATORVASTATIN CA 80 MG TABLET (FP) PO SCH (21:05)
[2022-07-07] MEDS: methylPREDNISolone NA SUCC 40 MG/1 ML VIAL IVPUSH SCH ×4 (01:36→21:35)
[2022-07-07] MEDS: ALBUTEROL SO4 0.083% IH SOL 2.5 MG/3 ML VIAL.NEB. NEB SCH ×4 (08:01→20:48)
[2022-07-07 09:13] VITALS: RESP 18
[2022-07-07] MEDS: PANTOPRAZOLE 20 MG TABLET PO SCH (09:55)
[2022-07-07] MEDS: busPIRone HCL 5 MG TABLET PO SCH ×2 (09:55→21:36)
[2022-07-07] MEDS: ASPIRIN COATED 81 MG TABLET.EC PO SCH (09:56)
[2022-07-07] MEDS: LACTOBACILLUS ACIDOPHILUS 1 TABLET PO SCH (09:57)
[2022-07-07] MEDS: valACYclovir HCL 500 MG TABLET (FP) PO SCH ×2 (09:58→21:35)
[2022-07-07] MEDS: HEPARIN NA (PORCINE) 5,000 UNITS/ML 1ML VIAL SQ SCH ×2 (09:58→21:35)
[2022-07-07] MEDS: DARUNAVIR ETHANOLATE 800 MG TAB PO SCH (10:02)
[2022-07-07] MEDS: lamiVUDine 150 MG TABLET PO SCH (10:02)
[2022-07-07] MEDS: RITONAVIR 100 MG TABLET PO SCH (10:03)
[2022-07-07] MEDS: RALTEGRAVIR POTASSIUM 400 MG TAB PO SCH ×2 (10:04→21:36)
[2022-07-07] MEDS: BUDESONIDE/FORMETEROL FUMARATE 80/4.5 mcg INHALER IH SCH ×2 (10:06→21:35)
[2022-07-07] MEDS: MONTELUKAST NA 10 MG TABLET PO SCH (21:35)
[2022-07-07] MEDS: ATORVASTATIN CA 80 MG TABLET (FP) PO SCH (21:35)
[2022-07-08] MEDS: ALBUTEROL SO4 0.083% IH SOL 2.5 MG/3 ML VIAL.NEB. NEB SCH ×4 (00:24→11:26)
[2022-07-08] MEDS: PANTOPRAZOLE 20 MG TABLET PO SCH (10:16)
[2022-07-08] MEDS: ASPIRIN COATED 81 MG TABLET.EC PO SCH (10:16)
[2022-07-08] MEDS: busPIRone HCL 5 MG TABLET PO SCH (10:17)
[2022-07-08] MEDS: valACYclovir HCL 500 MG TABLET (FP) PO SCH (10:17)
[2022-07-08] MEDS: LACTOBACILLUS ACIDOPHILUS 1 TABLET PO SCH (10:17)
[2022-07-08] MEDS: lamiVUDine 150 MG TABLET PO SCH (10:18)
[2022-07-08] MEDS: HEPARIN NA (PORCINE) 5,000 UNITS/ML 1ML VIAL SQ SCH (10:18)
[2022-07-08] MEDS: methylPREDNISolone NA SUCC 40 MG/1 ML VIAL IVPUSH SCH (10:19)
[2022-07-08] MEDS: RALTEGRAVIR POTASSIUM 400 MG TAB PO SCH (10:19)
[2022-07-08] MEDS: DARUNAVIR ETHANOLATE 800 MG TAB PO SCH (10:19)
[2022-07-08] MEDS: RITONAVIR 100 MG TABLET PO SCH (10:19)
[2022-07-08] MEDS: BUDESONIDE/FORMETEROL FUMARATE 80/4.5 mcg INHALER IH SCH (10:20)
[2022-07-08 12:06] VITALS: BP 131/83; PULSE 91; TEMP 97.5
== END 2022-07-08 14:14 | DRG 65 ==
LOC: JER 08:01 → INTOOBSV 12:58 → JERBED 12:58 → J4W 23:14 → OBSVTOIN 07-05 11:44 → J6S 07-06 11:22
PROVIDERS: ADMIT Internal Medicine; ATTEND Internal Medicine
DX: I63.89 Other cerebral infarction (principal); B20 Human immunodeficiency virus [HIV] disease; I24.8 Other forms of acute ischemic heart disease; J44.1 Chronic obstructive pulmonary disease with (acute) exacerbation; I10 Essential (primary) hypertension; E78.5 Hyperlipidemia, unspecified; J45.909 Unspecified asthma, uncomplicated; K21.9 Gastro-esophageal reflux disease without esophagitis; G62.9 Polyneuropathy, unspecified; R26.81 Unsteadiness on feet; R47.81 Slurred speech; Z87.11 Personal history of peptic ulcer disease; E78.00 Pure hypercholesterolemia, unspecified
CPT/HCPCS: 0241U-QW; 36415; 70450-TC; 70553-TC; 71045-TC-FY; 74177-TC; 80053; 80061; 81003; 82550; 82962; 83036; 83735; 84100; 84443; 84484; 85025; 85610; 85730; 86850; 86870; 86900; 86901; 86902; 93005; 93010; 93306-TC; 93880-TC; 94640; 97116-GP; 97162-GP; 99285-25; A9579; C9803-CS; G0378; J1644; Q9967; U0003; U0005

== ENCOUNTER 2022-09-23 12:17 | Emergency (ER) | payer BC ==
[2022-09-23 12:59] VITALS: BMI 22.8
[2022-09-23 13:16] VITALS: RESP 20
[2022-09-23] MEDS ORDERED: SODIUM CHLORIDE 1,000 ML IV STA (13:28)
[2022-09-23] MEDS ORDERED: DEXAMETHASONE SOD PHOSPHATE 10 MG/1 ML VIAL IVPUSH ONE (13:28)
[2022-09-23] MEDS ORDERED: ALBUTEROL SO4 2.5/IPRATROPIUM 0.5 INH SOL 3 ML VIAL.NEB. NEB SCH (13:30)
[2022-09-23] MEDS ORDERED: ALBUTEROL SO4 2.5/IPRATROPIUM 0.5 INH SOL 3 ML VIAL.NEB. NEB ONE (13:42)
[2022-09-23] MEDS ORDERED: DEXAMETHASONE SOD PHOSPHATE 10 MG/1 ML VIAL ONE (13:42)
[2022-09-23 14:44] LABS: BASO % 0.7 % (0-2.0); HEMOGLOBIN 10.8 GM/dL (10.7-15.3); LYMPH % 24.7 % (8-40); MCH 27.1 pg (25.7-33.7); MCHC 30.9 g/dl (32.0-36.0); MEAN CELL VOLUME 87.8 fl (80-96); MEAN PLT VOLUME 9.3 fl (7.5-11.1); MONO % 16.7 % (3.8-10.2); NEUT % 56.9 % (42.8-82.8); PLATELET COUNT 242 10^3/uL (134-434); RBC 3.99 M/mm3 (3.60-5.2); RDW 18.1 % (11.6-15.6); WHITE BLOOD COUNT 6.3 K/mm3 (4.0-10.0)
[2022-09-23 15:08] LABS: POTASSIUM 3.6 mmol/L (3.5-5.1)
[2022-09-23 15:10] LABS: ALBUMIN 3.1 g/dl (3.4-5.0); BLOOD UREA NITROGEN 6.9 mg/dL (7-18); CALCIUM 8.7 mg/dL (8.5-10.1)
[2022-09-23 15:15] LABS: BILIRUBIN,TOTAL 0.6 mg/dL (0.2-1); TOT PROT 6.5 g/dl (6.4-8.2)
[2022-09-23 15:43] VITALS: BP 106/52; PULSE 96; TEMP 98.7
== END 2022-09-23 15:40 | disposition home or self-care (01) ==
LOC: JER 12:17
PROC: 3E033NZ Introduction of Analgesics, Hypnotics, Sedatives into Peripheral Vein, Percutaneous Approach (ICD-10-PCS; principal; 2022-09-23)
PROC: 3E0337Z Introduction of Electrolytic and Water Balance Substance into Peripheral Vein, Percutaneous Approach (ICD-10-PCS; 2022-09-23)
PROC: 3E0F7GC Introduction of Other Therapeutic Substance into Respiratory Tract, Via Natural or Artificial Opening (ICD-10-PCS; 2022-09-23)
DX: J45.901 Unspecified asthma with (acute) exacerbation (principal)
CPT/HCPCS: 0241U-QW; 36415; 71045-TC-FY; 80053; 85025; 93005; 93010; 99285-25; J1100

== ENCOUNTER 2022-10-16 15:02 | Emergency (ER) | payer BC ==
[2022-10-16] MEDS: ALBUTEROL SO4 2.5/IPRATROPIUM 0.5 INH SOL 3 ML VIAL.NEB. NEB SCH (15:36)
[2022-10-16] MEDS ORDERED: ALBUTEROL SO4 2.5/IPRATROPIUM 0.5 INH SOL 3 ML VIAL.NEB. NEB ONE (15:38)
[2022-10-16 16:03] VITALS: BMI 21.0
[2022-10-16] MEDS ORDERED: AZITHROMYCIN 250 MG TABLET PO ONE (18:31)
[2022-10-16] MEDS ORDERED: AZITHROMYCIN 500 MG TABLET ONE (18:50)
[2022-10-16 18:56] VITALS: BP 97/55; PULSE 91; RESP 20; TEMP 98.2
== END 2022-10-16 19:03 | disposition home or self-care (01) ==
LOC: JER 15:02
PROC: 3E0F7GC Introduction of Other Therapeutic Substance into Respiratory Tract, Via Natural or Artificial Opening (ICD-10-PCS; principal; 2022-10-16)
DX: J45.901 Unspecified asthma with (acute) exacerbation (principal); R05.9 Cough, unspecified; B34.9 Viral infection, unspecified; J18.9 Pneumonia, unspecified organism; Z20.822 Contact with and (suspected) exposure to COVID-19
CPT/HCPCS: 0241U-QW; 71045-TC-FY; 99284-25

== ENCOUNTER 2022-10-20 07:57 | Emergency (ER) | payer BC ==
[2022-10-20 08:05] VITALS: BP 113/63; PULSE 105; RESP 18; TEMP 100; BMI 21.0
[2022-10-20] MEDS ORDERED: MAGNESIUM SULF 50% (8.12 MEQ/2 ML-1 GM VIAL) IVPB ONE (08:47)
[2022-10-20] MEDS ORDERED: ALBUTEROL SO4 2.5/IPRATROPIUM 0.5 INH SOL 3 ML VIAL.NEB. NEB ONE ×2 (08:48→08:55)
[2022-10-20] MEDS ORDERED: MAGNESIUM SULFATE IN WATER 2 GM/50 ML IVPB IVPB ONE (08:55)
[2022-10-20 09:40] LABS: HEMATOCRIT 37.1 % (32.4-45.2); HEMOGLOBIN 11.6 GM/dL (10.7-15.3); MCH 27.6 pg (25.7-33.7); MCHC 31.2 g/dl (32.0-36.0); MEAN CELL VOLUME 88.7 fl (80-96); MEAN PLT VOLUME 9.3 fl (7.5-11.1); PLATELET COUNT 219 10^3/uL (134-434); RBC 4.18 M/mm3 (3.60-5.2); RDW 19.4 % (11.6-15.6); WHITE BLOOD COUNT 9.8 K/mm3 (4.0-10.0)
[2022-10-20] MEDS ORDERED: ALBUTEROL SO4 0.083% IH SOL 2.5 MG/3 ML VIAL.NEB. NEB ONE (09:48)
[2022-10-20] MEDS: ALBUTEROL SO4 0.083% IH SOL 2.5 MG/3 ML VIAL.NEB. NEB SCH ×2 (09:50→10:10)
[2022-10-20 10:05] LABS: POTASSIUM 4.1 mmol/L (3.5-5.1)
[2022-10-20 10:09] LABS: ALBUMIN 3.4 g/dl (3.4-5.0); CALCIUM 8.3 mg/dL (8.5-10.1); MAGNESIUM 2.4 mg/dL (1.8-2.4)
[2022-10-20 10:10] LABS: BLOOD UREA NITROGEN 14.8 mg/dL (7-18)
[2022-10-20 10:14] LABS: BILIRUBIN,TOTAL 0.4 mg/dL (0.2-1); TOT PROT 6.8 g/dl (6.4-8.2)
[2022-10-20 10:42] LABS: ANISOCYTOSIS 1+; MACROCYTOSIS 1+
== END 2022-10-20 11:18 | disposition home or self-care (01) ==
LOC: JER 07:57
PROC: 3E033GC Introduction of Other Therapeutic Substance into Peripheral Vein, Percutaneous Approach (ICD-10-PCS; principal; 2022-10-20)
PROC: 3E0F7GC Introduction of Other Therapeutic Substance into Respiratory Tract, Via Natural or Artificial Opening (ICD-10-PCS; 2022-10-20)
PROC: 3E0F7GC Introduction of Other Therapeutic Substance into Respiratory Tract, Via Natural or Artificial Opening (ICD-10-PCS; 2022-10-20)
DX: R06.02 Shortness of breath (principal); R07.9 Chest pain, unspecified; R05.9 Cough, unspecified; J45.909 Unspecified asthma, uncomplicated; U07.1 COVID-19
CPT/HCPCS: 0241U-QW; 36415; 71046-TC-FY; 80053; 83735; 85025; 86359; 86360; 93005; 93010; 99285-25